=== PATIENT | male | born 1955 | race Caucasian/White ===

== ENCOUNTER 2020-04-12 10:31 | Outpatient (REF) | payer BC, SELFPAY ==
[2020-04-12 10:56] LABS: MANUAL DIFF FLAG NO
[2020-04-12 11:01] LABS: Basophils Percent Auto 0.5 % (0-2); Eosinophils Absolute Auto 0.1 X10*3/uL (0.0-0.4); Eosinophils Percent Auto 1.6 % (0-4); Hematocrit 46.3 % (42-52); Hemoglobin 15.6 g/dl (14.0-18.0); Imm Gran Abs Auto 0.01 X10*3/uL (0.00-0.03); Imm Gran Pct Auto 0.2 % (0.0-0.4); Lymphocytes Absolute Auto 1.8 X10*3/uL (1.2-4.9); Lymphocytes Percent Auto 28.1 % (20-40); Mean Corpuscular HGB Conc 33.7 g/dl (31.0-36.0); Mean Corpuscular Hemoglobin 30.7 pg (27.0-33.0); Mean Corpuscular Volume 91.1 fL (80-98); Mean Platelet Volume 10.1 fL (9.4-12.4); Monocytes Absolute Auto 0.6 X10*3/uL (0.1-1.2); Monocytes Percent Auto 9.3 % (2-11); Neutrophils Absolute Auto 3.8 X10*3/uL (2.0-8.3); Neutrophils Percent Auto 60.3 % (45-73); Platelet Count 203 X10*3/uL (160-400); Red Blood Count 5.08 X10*6/uL (4.60-5.80); Red Cell Distribution Width 12.4 % (11.0-16.0); White Blood Count 6.2 X10*3/uL (4.8-10.8)
[2020-04-12 11:06] LABS: Glucose Urine UA NEG (NEG); Leukocyte Esterase Urine NEG (NEG); Nitrite Urine NEG (NEG); Specific Gravity - Urine 1.025 (1.005-1.025); Urine Blood NEG (NEG); Urine Ketones NEG (NEG); Urine Protein NEG (NEG-TRACE)
[2020-04-12 11:07] LABS: Appearance Urine CLEAR; Color Urine YELLOW
[2020-04-12 11:22] LABS: Alanine Aminotransferase 21 U/L (0-40); Albumin Level 4.3 g/dL (3.5-5.0); Alkaline Phosphatase 61 U/L (39-117); Anion Gap 12 (12-20); Aspartate Amino Transferase 18 U/L (5-37); Blood Urea Nitrogen 17 mg/dL (9-16); Calcium 9.4 mg/dL (8.4-10.2); Carbon Dioxide 26 mmol/L (22-29); Chloride 107 mmol/L (96-108); Cholesterol 190 mg/dL; Estimated Glomerular Filt Rate > 60; Glucose Fasting 96 mg/dL (60-99); HDL Cholesterol 41 mg/dL; LDL Cholesterol Calculated 130 mg/dl; Potassium 4.3 mmol/L (3.3-5.1); Sodium 141 mmol/L (135-145); Total Protein 6.8 g/dL (6.5-8.0); Triglycerides 97 mg/dL
[2020-04-12 11:46] LABS: Vitamin D 25-OH Total 29.6 ng/mL (>30)
== END 2020-04-12 10:32 | disposition home or self-care (01) ==
LOC: HO.LAB 10:31
PROVIDERS: PCP Internal Medicine; Visit Provider Internal Medicine
DX: Z00.00 Encounter for general adult medical examination without abnormal findings (principal); Z12.5 Encounter for screening for malignant neoplasm of prostate; I47.1 Supraventricular tachycardia; E55.9 Vitamin D deficiency, unspecified; N20.0 Calculus of kidney; E78.00 Pure hypercholesterolemia, unspecified
CPT/HCPCS: 36415; 80053; 80061; 81003; 82306; 84153; 84443; 85025

== ENCOUNTER → 2020-10-14 14:30 | Outpatient (BNVA) | payer BC, SELFPAY | PROVIDERS: PCP Internal Medicine; Visit Provider Internal Medicine Cardiovascular Disease ==

== ENCOUNTER → 2020-10-14 | Outpatient (REF) | payer BC, SELFPAY | LOC: HO.CARD | PROVIDERS: Visit Provider Internal Medicine Cardiovascular Disease | DX: I47.1 Supraventricular tachycardia (principal); R00.2 Palpitations | CPT/HCPCS: 93005 ==

== ENCOUNTER 2020-10-18 09:21 | Outpatient (REF) | payer BC, SELFPAY ==
[2020-10-18 11:16] LABS: Free T4 (Free Thyroxine) 1.06 ng/dL (0.71-1.85); Thyroid Stimulating Hormone 0.32 uIU/mL (0.32-4.0)
== END 2020-10-18 09:22 | disposition home or self-care (01) ==
LOC: HO.LAB 09:21
PROVIDERS: PCP Internal Medicine; Visit Provider Internal Medicine
DX: R79.89 Other specified abnormal findings of blood chemistry (principal)
CPT/HCPCS: 36415; 84439; 84443; 84481

== ENCOUNTER → 2020-10-21 12:48 | Outpatient (REF) | payer BC, SELFPAY ==
--- NOTE | 2020-10-21 12:53 | HM_ITS ---
Patient monitored for 13 days and 23 hours. Baseline rhythm is normal sinus rhythm. Average heart rate is 60 beats per minute. No significant pauses noted, AV conduction is satisfactory There 57 supraventricular tachycardia episodes noted, longest of 4 minutes and 38 seconds. SVT heart rate of 127-130 beats per minute. There were rare PVCs noted, total burden 0.03%. There were also rare PACs noted, total burden 0.06% Patient did not report any events on this monitor. MTDD
--- NOTE | 2020-10-21 12:53 | CA_ITS ---
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 Normal LV systolic and diastolic function 2. Trivial aortic regurgitation 3. No pericardial effusion Findings Left Ventricle Normal left ventricular size, thickness, and systolic function. The visually estimated ejection fraction is between 60-65%. Spectral Doppler is indicative of a normal filling pattern. Right Ventricle Normal right ventricular cavity size and systolic function. Atria The left atrium is likely dilated. Interatrial shunt cannot be excluded. The right atrium is normal in size. Aortic Valve There is mild calcification of the aortic valve. There is no aortic valve stenosis. There is trace (trivial) aortic valve regurgitation. Mitral Valve Normal mitral valve structure and function. There is trace mitral valve regurgitation. There is no mitral valve stenosis. Pulmonic Valve The pulmonic valve was not well visualized. Tricuspid Valve Likely normal tricuspid valve structure and function. Tricuspid regurgitation envelope is inadequate for calculation of right ventricular systolic pressure. Great Vessels All visible segments of the aorta are normal in size. The pulmonary artery was not well visualized. Venous The inferior vena cava is normal in size and collapses greater than 50% with inspiration. Pericardium/Pleural There is no evidence of pericardial effusion. Prior Study Comparison No previous study in the last 5 years for comparison Measurements 2D Linear Measurements RVIDd: 3.55 RVIDd Index: 1.45 IVSd: 1.00 0.6-0.9/0.6-1.0 cm LVIDd: 4.99 3.9-5.3/4.2-5.9 cm LVIDd Index: 2.05 2.4-3.2/2.2-3.1 cm/m2 LVIDs: 3.65 2.0-3.6 cm LVPWd: 1.21 0.7-1.1 cm Ao Root: 3.90 2.1-3.5 cm LA Diam: 4.80 2.7-3.8/3.0-4.0 cm LAIDs Index: 1.97 1.5-2.3 cm/m2 LV Mass: 258.47 67-162/88-224 g LV Mass Index: 105.93 43-95/49-115 g/m2 LVOT Diam: 2.40 3.0+(-)1.3 cm 2D Systolic Function EF 4C: 68.70 >55% Mitral Valve MV Pk E: 0.54 MV PK A: 0.45 MV Decel Time: 263.00 E/A: 1.20 E'Lateral: 8.27 E'Medial: 7.18 E/E' Med: 7.50 E/E' Lat: 6.50 Aortic Valve AoV Pk Isreal: 1.51 AoV Mn Isreal: 0.95 AoV VTI: 0.30 AoV Pk Grad: 9.00 Aov Mn Grad: 4.00 JORGE Cont.VTI: 5.17 LVOT LVOT Pk Isreal: 1.38 LVOT Mn Isreal: 1.15 LVOT VTI: 0.34 LVOT Pk Grad: 8.00 LVOT Mn Grad: 5.00 LVOT Diam: 2.40 LVOT Area: 4.52 Diastolic Function MV Pk E: 0.54 MV Pk A: 0.45 E/A: 1.20 E'Medial: 7.18 E/E' Med: 7.50 E' Laterial: 8.27 E/E' Lat: 6.50 Right Ventricle TAPSE (mm): 25.00 TVS' Isreal: 12.50 Tricuspid Valve RA Press: 8.00 Great Vessels Aorta Ao Root-2D: 3.90 2.0-3.7 cm Ao Asc: 3.90 2.1-3.4 cm Ao Arch: 3.80 Updated in Other Vendor System with Status of Final Yasmani Mao MD electronically signed on 10/22/2020 2:26:50 PM with status of Final
== END ==
LOC: HO.CARD 12:48
PROVIDERS: Visit Provider Internal Medicine Cardiovascular Disease
DX: I47.1 Supraventricular tachycardia (principal)
CPT/HCPCS: 93246; 93306

== ENCOUNTER → 2020-11-10 13:43 | Outpatient (BNVA) | payer BC, SELFPAY | PROVIDERS: PCP Internal Medicine; Visit Provider Internal Medicine Cardiovascular Disease ==

== ENCOUNTER → 2020-12-19 09:11 | Outpatient (BNVA) | payer BC, SELFPAY | PROVIDERS: PCP Internal Medicine; Visit Provider Urology | DX: N40.1 Benign prostatic hyperplasia with lower urinary tract symptoms (principal); N20.0 Calculus of kidney; R39.15 Urgency of urination | CPT/HCPCS: 51798 ==

== ENCOUNTER → 2020-12-25 10:37 | Outpatient (BNVA) | payer BC, SELFPAY | PROVIDERS: PCP Internal Medicine; Visit Provider Surgery Vascular Surgery ==

== ENCOUNTER 2021-01-07 07:54 | Outpatient (REF) | payer BC, SELFPAY ==
--- NOTE | ~2021-01-07 | US_ITS ---
EXAMINATION: BILATERAL LOWER EXTREMITY VENOUS ULTRASOUND (Reflux Exam) CLINICAL INDICATION: Varicose veins. COMPARISON: None. TECHNIQUE: Color flow triplex imaging and compression Doppler was performed to evaluate both the deep and the superficial systems bilaterally. To evaluate the superficial system, the examination was performed in the upright position. Color-flow Doppler ultrasound and compression ultrasound were utilized. In addition, maneuvers were utilized to demonstrate reflux. FINDINGS: 1. DEEP VENOUS ULTRASOUND OF THE RIGHT LOWER EXTREMITY: Common Femoral Vein: Compressible, normal respiratory variation and augmented flow. Femoral vein: Compressible, normal color flow and augmentation. Popliteal Vein: Compressible, normal augmentation. Deep Reflux: There is no evidence of reflux in the deep system in either the common femoral vein or the popliteal vein. There is no evidence of a Cruz's cyst. 2. SUPERFICIAL ULTRASOUND WITH DOPPLER OF RIGHT LOWER EXTREMITY GREAT SAPHENOUS VEIN: Saphenofemoral junction: 0.6 cm; Reflux: No evidence of reflux. Max diameter: 0.6 Min diameter: 0.1 Reflux: Segmental reflux above the knee measuring greater than 0.5 seconds. DUPLICATED MEDIAL GREAT SAPHENOUS VEIN: Max Diameter: None Imaged Reflux: NA DUPLICATED LATERAL GREAT SAPHENOUS VEIN: Diameter: 0.2 cm at the junction Reflux: None SMALL SAPHENOUS VEIN: Saphenopopliteal junction: 0.3 cm; Reflux: No evidence of reflux. Min diameter: 0.2 Reflux: 1.2 seconds of reflux at the distal calf VEIN OF GIACOMINI: None Imaged. PERFORATORS: Location: Proximal calf and midcalf, measuring 2 and 4 mm respectively. Reflux: Greater than 2 seconds of reflux at the proximal calf. VARICOSITIES: Location: At knee measuring 4 mm Reflux: None 3. DEEP VENOUS ULTRASOUND OF THE LEFT LOWER EXTREMITY: Common Femoral Vein: Compressible, normal respiratory variation and augmented flow. Femoral vein: Compressible, normal color flow and augmentation. Popliteal Vein: Compressible, normal augmentation. Deep Reflux: There is 1.8 seconds of reflux within the common femoral vein. There is no evidence of a Cruz's cyst. 4. SUPERFICIAL ULTRASOUND WITH DOPPLER OF LEFT LOWER EXTREMITY GREAT SAPHENOUS VEIN: Saphenopopliteal junction: 1.4 cm; Reflux: Greater than 3.2 seconds of reflux Max diameter: 1.4 Min diameter: 0.2 Reflux: Reflux is seen from the saphenofemoral junction to the midthigh measuring between 2.6 and 3.3 seconds. DUPLICATED MEDIAL GREAT SAPHENOUS VEIN: Max Diameter: None Imaged Reflux: NA DUPLICATED LATERAL GREAT SAPHENOUS VEIN: Diameter: None Imaged Reflux: NA SMALL SAPHENOUS VEIN: Saphenofemoral junction: 0.2 cm; Reflux: No evidence of reflux. Min diameter: 0.1 Reflux: No evidence of reflux. VEIN OF GIACOMINI: None Imaged. PERFORATORS: Location: Midcalf measuring 2 and 4 mm. Reflux: Greater than 1.1 seconds at the midcalf. VARICOSITIES: Location: Midcalf, midthigh, distal lateral thigh and posterior thigh. These range in size from 5 mm to 13 mm. Reflux: All varicosities demonstrate reflux ranging between 1.8 seconds and 3.1 seconds. Additional: Along the medial midthigh is a 2.0 x 0.9 x 1.4 cm cystic area without internal vascularity. US/US venous duplex LE BI IMPRESSION: 1. Segmental right great saphenous venous insufficiency above the knee. 2. Left great saphenous venous insufficiency beginning at the junction. 3. Right small saphenous venous insufficiency at the distal calf. Bilateral refluxing perforators 4. Bilateral varicosities. Multiple large left lower extremity varicosities demonstrate reflux. 5. Deep venous insufficiency involving the left common femoral vein. 6. No evidence of DVT.
== END 2021-01-07 07:55 | disposition home or self-care (01) ==
LOC: HO.US 07:54
PROVIDERS: PCP Internal Medicine; Visit Provider Surgery Vascular Surgery
DX: I83.12 Varicose veins of left lower extremity with inflammation (principal)
CPT/HCPCS: 93970

== ENCOUNTER → 2021-01-20 09:46 | Outpatient (BNVA) | payer BC, SELFPAY | PROVIDERS: PCP Internal Medicine; Visit Provider Surgery Vascular Surgery ==

== ENCOUNTER 2021-01-28 09:41 | Outpatient (REF) | payer BC, SELFPAY ==
--- NOTE | ~2021-01-28 | US_ITS ---
EXAMINATION: US RETROPERITONEAL COMPLETE (RENAL) CLINICAL INFORMATION: Kidney stones. Urinary tract infection. BPH. COMPARISON: CT abdomen and pelvis 09/13/2018. KUB 06/17/2010. TECHNIQUE: Real-time imaging of the kidneys and bladder. FINDINGS: RIGHT KIDNEY: 10.5 x 5.9 x 6.3 cm (SAG x AP x TRV). The kidney is normal in size, contour, and echogenicity. Renal cortical thickness is normal. No focal parenchymal lesions or hydronephrosis. Several echogenic foci consistent with calculi. One in the upper pole measuring 3 x 3 mm. Another in the upper pole measuring 3 x 3 mm. LEFT KIDNEY: 12.1 x 5.8 x 6.2 cm (SAG x AP x TRV). The kidney is normal in size, contour, and echogenicity. Renal cortical thickness is normal. No focal parenchymal lesions or hydronephrosis. Several echogenic foci consistent with nonobstructing calculi. Midpole 5 x 6 mm calculus. Midpole 1.2 x 1 cm calculus. Lower pole 2 x 3 mm probable calculus. BLADDER: Well distended and normal. Bilateral ureteral jets are demonstrated. Prevoid bladder volume is 218 mL. Postvoid bladder volume is 28.2 mL. PROSTATE: 26 mL. US/US retroperitoneal comp IMPRESSION: Numerous nonobstructing renal calculi are noted here. Bilateral ureteral jets are seen in the bladder. Mild postvoid residual.
== END 2021-01-28 09:42 | disposition home or self-care (01) ==
LOC: HO.US 09:41
PROVIDERS: PCP Internal Medicine; Visit Provider Urology
DX: N40.1 Benign prostatic hyperplasia with lower urinary tract symptoms (principal); N20.0 Calculus of kidney
CPT/HCPCS: 76770

== ENCOUNTER → 2021-03-06 08:34 | Outpatient (BNVA) | payer BC, SELFPAY | PROVIDERS: PCP Internal Medicine; Visit Provider Surgery Vascular Surgery | DX: I83.12 Varicose veins of left lower extremity with inflammation (principal) | CPT/HCPCS: 36482 ==

== ENCOUNTER 2021-03-09 13:16 | Outpatient (REF) | payer BC, SELFPAY ==
--- NOTE | ~2021-03-09 | US_ITS ---
EXAMINATION: US VENOUS ULTRASOUND WITH DOPPLER LOWER EXTREMITY, LEFT CLINICAL INFORMATION: This is a 66-year-old male who is 3 days status post left great saphenous vein VenaSeal COMPARISON: None TECHNIQUE: Ultrasound of the deep veins is performed from the hip to the calf with compression sonography and color and pulse Doppler assessment. Spectral analysis with color-flow imaging is performed. FINDINGS: There is normal venous compression and respiratory variation and augmented flow. The visualized common femoral vein, superficial femoral vein, profunda femoral vein, popliteal vein, and the trifurcation region shows no evidence of deep venous thrombosis. There is no significant popliteal fossa cyst. The left great saphenous vein appears to be thrombosed. The occlusion of the left great saphenous vein begins 4.3 cm from the saphenofemoral junction. There is no extension of thrombus into the deep venous system. US/US venous duplex LE IMPRESSION: 1. No DVT demonstrated in the left lower extremity. 2. The left great saphenous vein is thrombosed beginning 4.3 cm below the saphenofemoral junction.
== END 2021-03-09 13:17 | disposition home or self-care (01) ==
LOC: HO.US 13:16
PROVIDERS: Visit Provider Surgery Vascular Surgery
DX: M79.605 Pain in left leg (principal)
CPT/HCPCS: 93971

== ENCOUNTER → 2021-03-19 09:10 | Outpatient (BNVA) | payer BC, SELFPAY | PROVIDERS: PCP Internal Medicine; Visit Provider Surgery Vascular Surgery ==

== ENCOUNTER → 2021-03-25 14:48 | Outpatient (BNVA) | payer BC, SELFPAY | PROVIDERS: PCP Internal Medicine; Visit Provider Urology | DX: N40.1 Benign prostatic hyperplasia with lower urinary tract symptoms (principal) | CPT/HCPCS: 52000 ==

== ENCOUNTER 2021-04-13 13:39 | Outpatient (REF) | payer BC, SELFPAY ==
--- NOTE | ~2021-04-13 | CT_ITS ---
EXAMINATION: CT ABDOMEN AND PELVIS WITHOUT CONTRAST CLINICAL INFORMATION: Neoplasm-related pain COMPARISON: Previous CT of the abdomen and pelvis August 2018 TECHNIQUE: Multidetector volumetric imaging was performed from the superior aspect of the liver through the pubic symphysis. Sagittal and coronal reformatted images were obtained on the technologist's workstation. This CT examination was performed using dose optimization techniques as appropriate, variously including the following: *Automated exposure control *Adjustment of mA and/or kV according to patient size (this includes techniques or standardized protocols for targeted exams where dose is matched to indication/reason for exam; i.e. extremities or head) *Use of iterative reconstruction technique DLP: 851 mGy-cm FINDINGS: LUNG BASES: The visualized lung bases are unremarkable. LIVER, GALLBLADDER, AND BILIARY TREE: The liver is normal in size, shape, and attenuation. No focal hepatic lesion or biliary ductal dilatation is present. The gallbladder is unremarkable with no evidence of radiopaque gallstones, gallbladder wall thickening, or obvious pericholecystic inflammatory changes. PANCREAS: Unremarkable. SPLEEN: Unremarkable. ADRENAL GLANDS: Unremarkable. KIDNEYS AND URETERS: The kidneys are normal in size, shape, and attenuation. No hydronephrosis, hydroureter. There are bilateral renal stones, left greater than right. Largest left renal stone or cluster of stones measures 5 mm. BLADDER: Unremarkable. GASTROINTESTINAL TRACT: There is diverticulosis of the colon. No evidence of diverticulitis is seen. The small and large bowel is otherwise unremarkable. The stomach is unremarkable. ABDOMINAL WALL: There are small umbilical and left inguinal hernias containing fat. LYMPH NODES: Normal. VASCULAR: Unremarkable. PELVIC VISCERA: Unremarkable. OSSEOUS STRUCTURES: There are degenerative changes of the spine. No fracture or suspicious bone lesion is seen. CT/CT abdomen pelvis wo con IMPRESSION: Bilateral renal stones, left greater than right. No hydronephrosis, ureteral dilatation or ureteral stone. Diverticulosis of the colon. No evidence of diverticulitis. Fleischner guidelines were followed.
== END 2021-04-13 13:40 | disposition home or self-care (01) ==
LOC: HO.CT 13:39
PROVIDERS: Visit Provider Urology
DX: G89.3 Neoplasm related pain (acute) (chronic) (principal); N20.0 Calculus of kidney; C79.51 Secondary malignant neoplasm of bone
CPT/HCPCS: 74176

== ENCOUNTER → 2021-04-15 09:19 | Outpatient (BNVA) | payer BC, SELFPAY | PROVIDERS: PCP Internal Medicine; Visit Provider Urology ==

== ENCOUNTER → 2021-05-19 15:01 | Outpatient (BNVA) | payer BC, SELFPAY | PROVIDERS: PCP Internal Medicine; Visit Provider Surgery Vascular Surgery | DX: Z13.89 Encounter for screening for other disorder (principal) ==

== ENCOUNTER → 2021-06-12 09:31 | Outpatient (BNVA) | payer BC, SELFPAY | PROVIDERS: PCP Internal Medicine; Visit Provider Surgery Vascular Surgery | DX: I83.12 Varicose veins of left lower extremity with inflammation (principal) | CPT/HCPCS: 37766 ==

== ENCOUNTER → 2021-06-25 15:12 | Outpatient (BNVA) | payer BC, SELFPAY | PROVIDERS: PCP Internal Medicine; Visit Provider Surgery Vascular Surgery | DX: I83.12 Varicose veins of left lower extremity with inflammation (principal) ==

== ENCOUNTER 2021-09-15 16:16 | Outpatient (REF) | payer BC, SELFPAY ==
--- NOTE | ~2021-09-15 | US_ITS ---
EXAMINATION: US RETROPERITONEAL LIMITED (RENAL ONLY) CLINICAL INFORMATION: Calculus of kidney. COMPARISON: CT abdomen and pelvis 04/13/2021, renal ultrasound 01/28/2021, x-ray abdomen 06/17/2010 TECHNIQUE: Real-time imaging of the kidneys. FINDINGS: RIGHT KIDNEY: 9.6 x 5.2 x 5.2 cm (SAG x AP x TRV). The kidney is normal in size, contour, and echogenicity. Renal cortical thickness is normal. No calculi or focal parenchymal lesions. No hydronephrosis. The small right renal stone seen by CT March 2021 are not appreciated. LEFT KIDNEY: 12.3 x 5.1 x 4.9 cm (SAG x AP x TRV). The kidney is normal in size, contour, and echogenicity. Renal cortical thickness is normal. There are 3 stones in the upper pole measuring 8 x 5 x 4 mm, 5 x 3 x 5 mm and 5 x 2 x 7 mm. No focal parenchymal lesions or hydronephrosis. US/US renal BI IMPRESSION: Left renal stones..
== END 2021-09-15 16:17 | disposition home or self-care (01) ==
LOC: HO.US 16:16
PROVIDERS: Visit Provider Urology
DX: N20.0 Calculus of kidney (principal)
CPT/HCPCS: 76775

== ENCOUNTER → 2021-10-22 08:29 | Outpatient (BNVA) | payer BC, SELFPAY | PROVIDERS: PCP Internal Medicine; Visit Provider Urology | DX: N40.1 Benign prostatic hyperplasia with lower urinary tract symptoms (principal); R39.15 Urgency of urination; N20.0 Calculus of kidney | CPT/HCPCS: 51798 ==

== ENCOUNTER → 2021-11-10 15:15 | Outpatient (BNVA) | payer BC, SELFPAY | PROVIDERS: PCP Internal Medicine; Referring Provider Internal Medicine; Visit Provider Internal Medicine Cardiovascular Disease | DX: I47.1 Supraventricular tachycardia (principal) | CPT/HCPCS: 93005 ==

== ENCOUNTER 2022-04-23 14:51 | Outpatient (REF) | payer BC, SELFPAY ==
--- NOTE | ~2022-04-23 | US_ITS ---
EXAMINATION: US RETROPERITONEAL LIMITED (RENAL ONLY) CLINICAL INFORMATION: Calculus of kidney. COMPARISON: Renal ultrasound 09/15/2021 and 01/28/2021. CT abdomen and pelvis 04/13/2021. TECHNIQUE: Real-time imaging of the kidneys. FINDINGS: RIGHT KIDNEY: 12.9 x 5.0 x 6.0 cm (SAG x AP x TRV). The kidney is normal in size, contour, and echogenicity. Renal cortical thickness is normal. No calculi or focal parenchymal lesions. A small right upper pole calculus seen on the prior CT scan is not visualized on the current study. No hydronephrosis. LEFT KIDNEY: 13.2 x 5.4 x 6.0 cm (SAG x AP x TRV). The kidney is normal in size, contour, and echogenicity. Renal cortical thickness is normal. Three upper pole calculi are again seen ranging in size from 4 mm to 7 mm without significant change when compared to the prior ultrasound exam. No focal parenchymal lesions or hydronephrosis. US/US renal BI IMPRESSION: Nonobstructing left upper pole renal calculi.
== END 2022-04-23 14:52 | disposition home or self-care (01) ==
LOC: HO.US 14:51
PROVIDERS: Visit Provider Urology
DX: N20.0 Calculus of kidney (principal)
CPT/HCPCS: 76775

== ENCOUNTER → 2022-04-30 15:10 | Outpatient (BNVA) | payer BC, SELFPAY | PROVIDERS: PCP Internal Medicine; Visit Provider Urology | DX: Z13.89 Encounter for screening for other disorder (principal) ==

== ENCOUNTER 2022-05-05 18:55 | Emergency (ER) | payer BC, SELFPAY ==
--- NOTE | ~2022-05-05 | US_ITS ---
EXAMINATION: US VENOUS ULTRASOUND WITH DOPPLER LOWER EXTREMITY, LEFT CLINICAL INFORMATION: Left lower extremity pain COMPARISON: Previous bilateral lower extremity DVT exam 03/09/2021 TECHNIQUE: Ultrasound of the deep veins is performed from the hip to the calf with compression sonography and color and pulse Doppler assessment. Spectral analysis with color-flow imaging is performed. FINDINGS: There is normal venous compression and respiratory variation and augmented flow. The visualized common femoral vein, superficial femoral vein, profunda femoral vein, popliteal vein, and the trifurcation region shows no evidence of deep venous thrombosis. There is no significant popliteal fossa cyst. If the patient's symptoms persist, followup ultrasound in 5 days 7 days might be of value to exclude proximal propagation from a non-visualized calf vein. US/US venous duplex LE IMPRESSION: No DVT demonstrated in the left lower extremity.
[2022-05-05 20:06] VITALS: BP 126/78; PULSE 68; RESP 18; TEMP 36.7; O2SAT 96; BMI 32.1
--- NOTE | 2022-05-05 20:10 | ED.GENADULT ---
HPI - General Adult General Chief complaint: Extremity Injury, Lower Stated complaint: Knee pain sent by Dr Related Data Home Medications Medication Instructions Recorded Confirmed ascorbate calcium (vitamin C) 500 500 mg PO DAILY 10/14/20 11/09/22 mg tablet atenolol 25 mg tablet 25 mg PO DAILY 10/14/20 11/09/22 cholecalciferol (vitamin D3) 25 25 mcg PO DAILY 10/14/20 11/09/22 mcg (1,000 unit) capsule vitamin B complex (B 1 tab PO DAILY 10/14/20 11/09/22 Complex-Vitamin B12 tablet) omeprazole 20 mg capsule,delayed 20 mg PO DAILY 10/28/22 11/09/22 release Previous Rx's Medication Instructions Recorded pyridoxine (vitamin B6) 50 mg 50 mg PO DAILY 90 days #90 tabs 04/30/22 tablet oxybutynin chloride 10 mg 10 mg PO DAILY 90 days #90 tabs 11/03/22 tablet,extended release 24 hr tamsulosin 0.4 mg capsule 0.4 mg PO BEDTIME 90 days #90 caps 11/03/22 Allergies Allergy/AdvReac Type Severity Reaction Status Date / Time No Known Allergies Allergy Verified 10/29/22 08:10 [No Known Allergies*] [facility] Past Medical History Medical History HTN (hypertension) GERD (gastroesophageal reflux disease) Nephrolithiasis Right inguinal hernia Varicose veins of right lower extremity Supraventricular tachycardia Surgical History Hx of right inguinal hernia repair (~07/09/22) History of esophagogastroduodenoscopy (EGD) H/O colonoscopy Hx of lithotripsy Status post ablation of incompetent vein using laser (03/06/21) H/O vein stripping (06/12/21) Hx of tonsillectomy History of back surgery Family History Family History Father CVD (cardiovascular disease) Mother No problems noted. Brother CVD (cardiovascular disease) Social History Social History Alcohol intake: current Alcohol intake frequency: holidays/special occasions only Patient Tobacco Use Status: Never used Tobacco Physical Exam ED Vital Signs: Vital Signs - 24 hr 05/05/22 20:06 Temperature 98.0 F Pulse Rate 68 Respiratory Rate 18 Blood Pressure 126/78 Pulse Oximetry 96 Oxygen Delivery Method Room Air BMI result Body Mass Index 32.1 Medical Decision Making Medical Decision Making MDM Narrative: 67-year-old male presents for evaluation of atraumatic left lower leg pain. He reports swelling from the knee down. Reports a history of ?varicose veins and sciatica. ? His vascular doctor told him to come to the ER for further evaluation an ultrasound was ordered to evaluate for DVT. Discharge Plan Discharge Clinical Impression: Acute knee pain Patient Disposition: Elopement Prescriptions: No Action oxybutynin chloride 10 mg tablet extended release 24hr 10 mg PO DAILY 90 Days Qty: 90 3RF tamsulosin 0.4 mg capsule 0.4 mg PO BEDTIME 90 Days Qty: 90 3RF omeprazole 20 mg Capsule,Delayed Release(Dr/Ec) 20 mg PO DAILY atenolol 25 mg tablet 25 mg PO DAILY ascorbate calcium (vitamin C) 500 mg tablet 500 mg PO DAILY cholecalciferol (vitamin D3) 25 mcg (1,000 unit) capsule 25 mcg PO DAILY vitamin B complex [B Complex-Vitamin B12] Tablet 1 tab PO DAILY pyridoxine (vitamin B6) 50 mg tablet 50 mg PO DAILY 90 Days Qty: 90 3RF Discharge Date/Time: 05/06/22 00:22
== END 2022-05-06 00:22 | disposition left against medical advice (07) ==
PROVIDERS: Emergency Provider Emergency Medicine; PCP Internal Medicine
DX: M79.662 Pain in left lower leg (principal); I83.12 Varicose veins of left lower extremity with inflammation
CPT/HCPCS: 93971; 99281; 99284

== ENCOUNTER 2022-05-12 12:50 | Outpatient (REF) | payer BC, SELFPAY ==
--- NOTE | ~2022-05-12 | XR_ITS ---
EXAMINATION: XR KNEE, LEFT CLINICAL INFORMATION: Knee swelling COMPARISON: None available. TECHNIQUE: Three views of the left knee. FINDINGS: Mild medial compartment joint space narrowing. No acute fracture or dislocation is seen. Small suprapatellar joint effusion. Tibial tubercle spurring. XR/XR knee LT 2V IMPRESSION: Mild medial compartment arthritis. Small effusion.
--- NOTE | ~2022-05-12 | US_ITS ---
EXAMINATION: US VENOUS ULTRASOUND WITH DOPPLER LOWER EXTREMITY, LEFT CLINICAL INFORMATION: Left leg swelling COMPARISON: Ultrasound 03/09/2021 TECHNIQUE: Ultrasound of the deep veins is performed from the hip to the calf with compression sonography and color and pulse Doppler assessment. Spectral analysis with color-flow imaging is performed. FINDINGS: There is normal venous compression and respiratory variation and augmented flow. The visualized common femoral vein, superficial femoral vein, profunda femoral vein, popliteal vein, and the trifurcation region shows no evidence of deep venous thrombosis. Visualized posterior tibial and peroneal veins appear patent. There is no significant popliteal fossa cyst. If the patient's symptoms persist, followup ultrasound in 5 days 7 days might be of value to exclude proximal propagation from a non-visualized calf vein. There are varicose veins seen in the left calf, which appear patent. No reflux is identified in today's study. US/US venous duplex LE LT IMPRESSION: No DVT demonstrated in the left lower extremity. If the patient's symptoms persist, followup ultrasound in 5 days 7 days might be of value to exclude proximal propagation from a non-visualized calf vein.
== END 2022-05-12 12:51 | disposition home or self-care (01) ==
LOC: HO.US 12:50
PROVIDERS: PCP Internal Medicine; Visit Provider Internal Medicine
DX: M79.89 Other specified soft tissue disorders (principal); R60.0 Localized edema
CPT/HCPCS: 73560; 93971

== ENCOUNTER 2022-05-15 10:30 | Outpatient (REF) | payer BC, SELFPAY ==
[2022-05-15 10:42] LABS: MANUAL DIFF FLAG NO
[2022-05-15 10:51] LABS: Basophils Percent Auto 0.5 % (0-2); Eosinophils Absolute Auto 0.2 X10*3/uL (0.0-0.4); Eosinophils Percent Auto 3.9 % (0-4); Hematocrit 44.6 % (42.0-52.0); Hemoglobin 14.8 g/dl (14.0-18.0); Imm Gran Abs Auto 0.01 X10*3/uL (0.00-0.03); Imm Gran Pct Auto 0.2 % (0.0-0.4); Lymphocytes Absolute Auto 1.5 X10*3/uL (1.2-4.9); Lymphocytes Percent Auto 25.5 % (20-40); Mean Corpuscular HGB Conc 33.2 g/dl (31.0-36.0); Mean Corpuscular Hemoglobin 30.2 pg (27.0-33.0); Mean Platelet Volume 10.1 fL (9.4-12.4); Monocytes Absolute Auto 0.6 X10*3/uL (0.1-1.2); Monocytes Percent Auto 9.3 % (2-11); Neutrophils Absolute Auto 3.6 x10*3/uL (2.0-8.3); Neutrophils Percent Auto 60.6 % (45-73); Platelet Count 210 X10*3/uL (160-400); Red Cell Distribution Width 12.5 % (11.0-16.0); White Blood Count 5.9 X10*3/uL (4.8-10.8)
[2022-05-15 11:31] LABS: Alanine Aminotransferase 23 U/L (0-40); Alkaline Phosphatase 67 U/L (39-117); Anion Gap 13 (12-20); Aspartate Amino Transferase 20 U/L (5-37); Bilirubin Total 1.1 mg/dL (0.0-1.0); Blood Urea Nitrogen 15 mg/dL (9-16); Calcium 9.3 mg/dL (8.4-10.2); Carbon Dioxide 28 mmol/L (22-29); Chloride 106 mmol/L (96-108); Cholesterol 171 mg/dL; Estimated Glomerular Filt Rate > 60; Glucose Fasting 92 mg/dL (60-99); HDL Cholesterol 40 mg/dL; LDL Cholesterol Calculated 117 mg/dl; Potassium 4.5 mmol/L (3.3-5.1); Sodium 142 mmol/L (135-145); Total Protein 6.4 g/dL (6.5-8.0); Triglycerides 72 mg/dL
[2022-05-15 11:49] LABS: Thyroid Stimulating Hormone 0.26 uIU/mL (0.32-4.0); Vitamin D 25-OH Total 35.1 ng/mL (>30)
== END 2022-05-15 10:31 | disposition home or self-care (01) ==
LOC: HO.LAB 10:30
PROVIDERS: PCP Internal Medicine; Visit Provider Internal Medicine
DX: M79.89 Other specified soft tissue disorders (principal); I47.1 Supraventricular tachycardia; E55.9 Vitamin D deficiency, unspecified; N20.0 Calculus of kidney; E78.00 Pure hypercholesterolemia, unspecified
CPT/HCPCS: 36415; 80053; 80061; 82306; 84443; 85025

== ENCOUNTER → 2022-05-25 13:53 | Outpatient (BNVA) | payer BC, SELFPAY | PROVIDERS: PCP Internal Medicine; Visit Provider Surgery Vascular Surgery | DX: Z13.89 Encounter for screening for other disorder (principal) ==

== ENCOUNTER → 2022-05-26 09:58 | Outpatient (BNVA) | payer BC, SELFPAY | PROVIDERS: PCP Internal Medicine; Visit Provider Surgery | DX: Z13.89 Encounter for screening for other disorder (principal) ==

== ENCOUNTER 2022-06-02 10:23 | Outpatient (REF) | payer BC, SELFPAY ==
--- NOTE | ~2022-06-02 | US_ITS ---
EXAMINATION: US LOWER EXTREMITY (REFLUX EXAM), LEFT CLINICAL INDICATION: Chronic venous insufficiency with left lower extremity varicose veins and inflammation. History of prior venous film of the great saphenous vein COMPARISON: 05/12/2022 and 03/09/2021 TECHNIQUE: Color flow triplex imaging and compression Doppler was performed to evaluate both the deep and the superficial systems of the left lower extremity. To evaluate the superficial system, the examination was performed in the upright position. Color-flow Doppler ultrasound and compression ultrasound were utilized. In addition, maneuvers were utilized to demonstrate reflux. FINDINGS: 1. DEEP VENOUS DOPPLER ULTRASOUND: Common Femoral Vein: Compressible, normal respiratory variation and augmented flow. Femoral Vein: Compressible, normal color flow and augmentation. Popliteal Vein: Compressible, normal augmentation. Deep Reflux: There is no evidence of reflux in the deep system in either the common femoral vein or the popliteal vein. There is no evidence of a Cruz's cyst. 2. SUPERFICIAL VENOUS DOPPLER ULTRASOUND: GREAT SAPHENOUS VEIN: Saphenofemoral Junction: 0.9 cm; Reflux: 0 ms Proximal Thigh: Occluded with Venaseal thrombus Mid Thigh: Partially recanalized Venaseal thrombus Above Knee: Occluded with Venaseal thrombus At Knee: 0.3 cm; Reflux: 3172 ms, recanalized Below Knee: 0.2 cm; Reflux: 0 ms Mid Calf: 0.1 cm; Reflux: 0 ms Ankle: 0.3 cm; Reflux: 552 ms DUPLICATED MEDIAL GREAT SAPHENOUS VEIN: Diameter: None Imaged Reflux: NA DUPLICATED LATERAL GREAT SAPHENOUS VEIN: Diameter: 0.6 cm Reflux: 3284 ms SMALL SAPHENOUS VEIN: Proximal: 0.1 cm; Reflux: 0 ms Distal: 0.2 cm; Reflux: 0 ms VEIN OF GIACOMINI: None Imaged. PERFORATORS: Location: Mid thigh and midcalf Size: 0.3 cm Reflux: None VARICOSITIES: Location: Proximal thigh extending off the lateral accessory saphenous vein, medial mid thigh, posterior thigh extending into the lateral calf Size: 0.4 to 0.5 cm Reflux: 3284 ms Other: There is a Cruz's cyst in the left popliteal fossa measuring 5.0 x 1.3 x 2.9 cm US/US venous duplex LE LT IMPRESSION: Occlusion of the great saphenous vein through the thigh consistent with prior venous oblation. The great saphenous vein in the calf is patent with segmental reflux. There is severe reflux in the lateral accessory great saphenous vein with multiple large branching varicosities Cruz's cyst
== END 2022-06-02 10:24 | disposition home or self-care (01) ==
LOC: HO.US 10:23
PROVIDERS: PCP Internal Medicine; Visit Provider Surgery Vascular Surgery
DX: I83.12 Varicose veins of left lower extremity with inflammation (principal)
CPT/HCPCS: 93971

== ENCOUNTER 2022-06-24 09:46 | Outpatient (REF) | payer BC, SELFPAY ==
--- NOTE | ~2022-06-24 | CT_ITS ---
STUDY PERFORMED: CTA/CTV ABDOMEN AND PELVIS WITHOUT AND WITH CONTRAST HISTORY: Left lower extremity pain and swelling. Concern for iliac vein compression/occlusion DESCRIPTION: Abdomen and pelvis CTA/CTV protocol with contrast was performed. 80 mL of Omnipaque 350 was administered. Arterial phase and venous phase images are obtained 3D POSTPROCESSING: Multiple 3-D angiographic images were processed from the initial data set by the lab technologist at the modality workstation under concurrent physician supervision. DOSE LOWERING TECHNIQUES: This CT examination was performed using dose optimization techniques as appropriate, variously including the following: - Automated exposure control - Adjustment of mA and/or kV according to patient size (this includes techniques or standardized protocols for targeted exams where dose is matched to indication/reason for exam; i.e. extremities or head) - Use of iterative reconstruction technique DLP: 766 mGycm. COMPARISON: Noncontrast CT scan from 04/05/2021 FINDINGS: VASCULAR: ABDOMINAL AORTA: Normal caliber and widely patent. No evidence of aneurysm or atherosclerotic plaque. RIGHT LOWER EXTREMITY: Common iliac, external iliac, internal iliac and visualized femoral arteries are widely patent. LEFT LOWER EXTREMITY: Common iliac, external iliac, internal iliac and visualized femoral arteries are widely patent. CELIOMESENTERIC ARTERIES: Patent. RENAL ARTERIES: Patent. VEINS: IVC, bilateral common iliac, external iliac and internal iliac veins are patent. No evidence of deep venous thrombosis or significant compression/stenosis. At the level the right inguinal ligament, there is a focal area of moderate compression at the junction of the right external iliac vein and common femoral vein due to adjacent inguinal hernia which contains mesenteric fat and multiple loops of bowel. The visualized left femoral veins are normal in caliber and widely patent. No significant varicose collateral veins seen in the abdomen and pelvis NONVASCULAR: Lung Bases: The visualized lung bases are unremarkable. Liver, Gallbladder and Biliary Tree: The liver is normal in size, shape, and attenuation. No focal hepatic lesion or biliary ductal dilatation is present. The gallbladder is unremarkable with no evidence of radiopaque gallstones, gallbladder wall thickening, or obvious pericholecystic inflammatory changes. Pancreas: Unremarkable. Spleen: Unremarkable. Adrenal Glands: Unremarkable. Kidneys and Ureters: The kidneys are normal in size, shape, and attenuation. No hydronephrosis, hydroureter seen. No perinephric stranding. Multiple nonobstructing calcified stones seen within the upper and lower pole collecting systems of the left kidney. Largest stone is seen in the upper pole measuring 0.9 cm. Bladder: Unremarkable. Gastrointestinal Tract: The small bowel are unremarkable. Diverticula seen within the sigmoid colon without evidence of acute diverticulitis The appendix is unremarkable. Abdominal Wall: Bilateral inguinal hernias are present. The right inguinal hernia is moderate in size containing mesenteric fat and loops of small bowel. The left inguinal hernia contains a small amount of mesenteric fat Lymph Nodes: Normal. Pelvic Viscera: Unremarkable. Osseous Structures: Degenerative disc disease seen at L5/S1 CT/CT angio abdomen pelvis IMPRESSION: 1. IVC, bilateral common iliac, external iliac and internal iliac veins are patent. No evidence of deep venous thrombosis or significant compression/stenosis. 2. At the level the right inguinal ligament, there is a focal area of moderate compression at the junction of the right external iliac vein and common femoral vein due to adjacent inguinal hernia which contains mesenteric fat and multiple loops of bowel. 3. Left nephrolithiasis.
[2022-06-24] MEDS: iohexoL 350 MG/ML 100 ML INFUS..BTL 80 ML IV (11:11)
[2022-06-24 13:49] LABS: Creatinine POC 0.7 mg/dL (0.5-1.4); GFR POC > 60
== END 2022-06-24 09:47 | disposition home or self-care (01) ==
LOC: HO.CT 09:46
PROVIDERS: PCP Internal Medicine; Visit Provider Surgery Vascular Surgery
DX: I83.12 Varicose veins of left lower extremity with inflammation (principal)
CPT/HCPCS: 74174; 82565; Q9967

== ENCOUNTER → 2022-06-28 09:26 | Outpatient (BNVA) | payer BC, SELFPAY | PROVIDERS: PCP Internal Medicine; Visit Provider Surgery Vascular Surgery ==

== ENCOUNTER 2022-07-09 07:25 | Day surgery (SDC) | payer BC, SELFPAY ==
[2022-07-06 15:09] VITALS: BMI 34.0
--- NOTE | 2022-07-08 10:07 | HO.ANESPROP2 ---
HPI - Anesthesia Eval Consult details Narrative: 67yo M for Right Hernia Repair Inguinal with mesh PMFSH Active Problems Active Problems: All Active Problems (Updated 07/06/22 @ 15:06 by Nataliia Lang RN) BPH loc w urin obs/LUTS (Acute) Nephrolithiasis (Acute) Urinary urgency (Acute) Varicose veins of left lower extremity with inflammation (Acute) Right inguinal hernia (Acute) Varicose veins of right lower extremity (Acute) Supraventricular tachycardia (Acute) Past Medical History Medical History Nephrolithiasis Right inguinal hernia Supraventricular tachycardia Varicose veins of right lower extremity Family History Family History Father CVD (cardiovascular disease) Mother No problems noted. Brother CVD (cardiovascular disease) Surgical History Surgical History H/O colonoscopy H/O vein stripping (06/12/21) History of back surgery History of esophagogastroduodenoscopy (EGD) Hx of lithotripsy Hx of right inguinal hernia repair (~07/09/22) Hx of tonsillectomy Status post ablation of incompetent vein using laser (03/06/21) Social History Social History Alcohol intake: current Alcohol intake frequency: holidays/special occasions only Patient Tobacco Use Status: Never used Tobacco Meds Allergies Allergy/AdvReac Type Severity Reaction Status Date / Time No Known Allergies Allergy Verified 07/22/22 09:13 [No Known Allergies*] Home Medications Medication Instructions Recorded Confirmed Last Taken Type ascorbate calcium (vitamin C) 500 500 mg PO DAILY 10/14/20 07/09/22 Unknown History mg tablet atenolol 25 mg tablet 25 mg PO DAILY 10/14/20 07/09/22 07/09/22 06:45 History cholecalciferol (vitamin D3) 25 25 mcg PO DAILY 10/14/20 07/09/22 Unknown History mcg (1,000 unit) capsule naproxen sodium 220 mg tablet 220 mg PO BID PRN Pain 10/14/20 07/09/22 07/08/22 History (Aleve) vitamin B complex (B 1 tab PO DAILY 10/14/20 07/09/22 Unknown History Complex-Vitamin B12 tablet) furosemide 40 mg tablet 40 mg PO DAILY 05/25/22 07/09/22 Unknown History Exam Exam Date and Time: July 08, 2022 1007 Height,Weight and Vital Signs: Height 6 ft 2 in Weight 120.202 kg Pertinent Lab Results Pertinent Lab Results: Laboratory Tests 05/15/22 05/15/22 10:40 10:40 WBC 5.9 Hgb 14.8 Hct 44.6 Plt Count 210 Sodium 142 Potassium 4.5 Chloride 106 Carbon Dioxide 28 BUN 15 Creatinine 0.83 Narrative Narrative: Holter 2021 Patient monitored for 13 days and 23 hours. Baseline rhythm is normal sinus rhythm.? Average heart rate is 60 beats per minute. No significant pauses noted, AV conduction is satisfactory There 57 supraventricular tachycardia episodes noted, longest of 4 minutes and 38 seconds.? SVT heart rate of 127-130 beats per minute. There were rare PVCs noted, total burden 0.03%.? There were also rare PACs noted, total burden 0.06% Patient did not report any events on this monitor. ECHO 2021 Conclusions: - 1. Normal LV systolic and diastolic function ? 2. Trivial aortic regurgitation? 3. No pericardial effusion ? ? Assessment and Plan Assessment Anesthesia Assessment: Chart Reviewed
[2022-07-09 07:49] VITALS: BP 124/73; PULSE 59; RESP 16; TEMP 37.1; O2SAT 95
[2022-07-09] MEDS: Lactated Ringers 1,000 ML 100 ML IVCONT (08:18)
--- NOTE | 2022-07-09 09:02 | HO.ANESPROP2 ---
[facility] Active Problems Active Problems: All Active Problems (Updated 07/06/22 @ 15:06 by Nataliia Lang RN) BPH loc w urin obs/LUTS (Acute) Nephrolithiasis (Acute) Urinary urgency (Acute) Varicose veins of left lower extremity with inflammation (Acute) Right inguinal hernia (Acute) Varicose veins of right lower extremity (Acute) Supraventricular tachycardia (Acute) Past Medical History Medical History Nephrolithiasis Right inguinal hernia Supraventricular tachycardia Varicose veins of right lower extremity Family History Family History Father CVD (cardiovascular disease) Mother No problems noted. Brother CVD (cardiovascular disease) Family history of problems with anesthesia: No Surgical History Surgical History H/O colonoscopy H/O vein stripping (06/12/21) History of back surgery History of esophagogastroduodenoscopy (EGD) Hx of lithotripsy Hx of tonsillectomy Status post ablation of incompetent vein using laser (03/06/21) History of Problems with Anesthesia: No Social History Social History Alcohol intake: current Alcohol intake frequency: holidays/special occasions only Patient Tobacco Use Status: Never used Tobacco Advance Directives: No (unknown) Advance Directives Information Provided: Yes Meds Allergies Allergy/AdvReac Type Severity Reaction Status Date / Time No Known Allergies Allergy Verified 07/09/22 07:46 [No Known Allergies*] Active Medications: Current Medications Lactated Ringer's (Lr) 1,000 mls @ 100 mls/hr IVCONT .Q10H MADELAINE Last Admin: 07/09/22 08:18 Dose: 100 mls/hr Home Medications Medication Instructions Recorded Confirmed Last Taken Type ascorbate calcium (vitamin C) 500 500 mg PO DAILY 10/14/20 07/09/22 Unknown History mg tablet atenolol 25 mg tablet 25 mg PO DAILY 10/14/20 07/09/22 07/09/22 06:45 History cholecalciferol (vitamin D3) 25 25 mcg PO DAILY 10/14/20 07/09/22 Unknown History mcg (1,000 unit) capsule naproxen sodium 220 mg tablet 220 mg PO BID PRN Pain 10/14/20 07/09/22 07/08/22 History (Aleve) vitamin B complex (B 1 tab PO DAILY 10/14/20 07/09/22 Unknown History Complex-Vitamin B12 tablet) furosemide 40 mg tablet 40 mg PO DAILY 05/25/22 07/09/22 Unknown History Exam Exam Date and Time: July 09, 2022 09 Height,Weight and Vital Signs: Height 6 ft 2 in Weight 120.202 kg Last Vital Signs Temp 98.7 F 07/09/22 07:49 Pulse 59 07/09/22 07:49 Resp 16 07/09/22 07:49 BP 124/73 07/09/22 07:49 Pulse Ox 95 07/09/22 07:49 O2 Del Method Room Air 07/09/22 07:49 Airway Mallampati Class: III TM Dist: >3cm Neck ROM: Full Lungs: cTA Assessment and Plan Final Anesthetic Review Family History of Problems with Anesthesia: No History of Problems with Anesthesia: No NPO: Yes ASA Class: III Final Preanesthetic Review: Meds/Allgs Chart Reviewed, Consent Obtained/Reviewed and Anes Risks/Benef Reviewed Patient Risk: Intermediate Procedure Risk: Low Anesthetic Plan Anesthetic Plan: GA Disposition: Standard PACU
--- NOTE | 2022-07-09 09:47 | MHC.SHP ---
Pre-Procedural Eval Section A Date of Service: 07/09/22 Section B Chief Complaint: Unilateral inguinal hernia, without obstruction or Details of Present Illness: reducible right inguinal hernia Relevant Social History: None Present Medications: see Short Stay Collaborative assessment Medical History: Significant History ( history of supraventricular tachycardia, nephrolithiasis, BPH) History of Previous Operations: No relevant previous surgery Allergies: Allergies Allergy/AdvReac Type Severity Reaction Status Date / Time No Known Allergies Allergy Verified 07/09/22 07:46 [No Known Allergies*] Review of Systems Sugical H&P ROS: Negative: Constitution, Cardiovascular, Respiratory, Neurological, Psychiatric, Hem-Onc, Allergic/Immunologic, Gastrointestinal, Genitourinary, Musculoskeletal, Integumentary, Endocrine and Eyes/Ears/Nose/Throat Exam Surgical H&P Exam: Normal: HEENT, Normal: Heart, Normal: Lungs, Normal: Extremities, Normal: Skin and Normal: Neurological and Significant Findings: Abdomen ( right inguinal hernia) Plan Diagnosis/Plan: Unchanged I have reviewed the history and physical and performed a pertinent physical examination on my patient. No changes have occurred unless specified. Time Spent With Patient Time: Total time managing care of this patient today ____ minutes.
--- NOTE | 2022-07-09 10:55 | P.OP_ITS ---
Operative Note Operative Note Date of Service: 07/09/22 Narrative: Preop diagnosis: Right inguinal hernia Postop diagnosis: Right inguinal hernia, with chronically incarcerated small bowel loops, indirect Procedure: Repair of a chronically incarcerated right inguinal hernia with mesh, reduction of chronically incarcerated small bowel loops, Surgeon: Joe Harris MD specimen preparation assistant: TYLER Galindo The patient is a 67 year female with a right inguinal hernia felt more with Valsalva maneuvers. He understood the technique of repair with mesh. He was aware of the risks, benefits, and alternatives. He was brought to the operating room. He was placed supine under general anesthesia via laryngeal mask airway. The right groin was prepped and draped in the usual sterile fashion. A surgical time-out was done. The patient received cefazolin 2 g IV preoperatively I infiltrated the planned line of incision with lidocaine 1%. I made a generous incision skin using blade 15 along an imaginary line from the anterior superior spine to the pubic ramus. This was carried down through the full-thickness of the skin subcutaneous fat with electrocautery. It is noted the patient have a very thick amount of subcutaneous fat in this area. We eventually were able to identify the external oblique aponeurosis. I gently dissected this using gauze until was able to visualize the external ring. I opened up the roof of the inguinal canal by make an incision on the external oblique aponeurosis using blade 15 and extending this inferomedially to connect with the external ring. Status were applied to the divided edges of the external oblique aponeurosis. I bluntly dissected the underside of the aponeurosis to create a pocket for the mesh . There was note of a large hernia intimately adherent to the cord contents. Blunt dissection around this hernia using my index finger was achieved with some difficulty in view of the large size of the hernia. I was therefore then able to pass a Colby drain around this. This Colby drain was used for for retraction. I attempted to release the large hernia off of the rest of the contents. However, because of the large hernia along with this being markedly adherent, this was technically difficult. I therefore opened up the sac. There was note of chronically incarcerated small bowel loops which were viable. By opening the sac,I was able to reduce this entire hernia contents through the internal ring. I proceeded to gently separate the rest of the sac from the rest of the cord contents which was now easily identifiable after reducing the contents of the hernia. I was able to clearly identify the vas deferens and the accompanying vessels. I had to leave part of the sac adherent to the vas deferens and the rest of the cord contents because this was very markedly adherent. I reinforced the internal ring with the large size Prolene plug. The plug was secured to this internal ring with Prolene 2-0 sutures to the shelving edge of the inguinal meant laterally and the internal oblique superiorly and medially using the inner leaves of the mesh. I reinforced the floor of the canal with a keyhole mesh. This was flattened. The tails of the mesh were passed around the cord at the level of the internal ring. I secured the mesh to the inguinal ligament laterally, the internal oblique superiorly medially as well as the pubic ramus inferomedially using 2 sutures as well I observed for hemostasis. Once hemostasis was confirmed, I proceeded to then reapposed the external oblique aponeurosis to re-create the external ring. The thick subcutaneous fat was reapposed with Polysorb 3-0 simple interrupted sutures. Skin closure was achieved with preserved 4-0 subcuticular running stitch. The area was infiltrated with Marcaine 0.5% for postop analgesia. Dressings were applied and the procedure was completed The patient tolerated procedure well. There were no immediate complications. Initial and final counts of sponges and instruments were correct. Estimated blood loss about 25 cc. The patient was extubated without difficulty and transferred to recovery room with stable vital signs.
[2022-07-09 11:11] VITALS: BP 109/68; PULSE 52; RESP 16; TEMP 36.4; O2SAT 95
[2022-07-09 11:16] VITALS: BP 118/69; PULSE 52; RESP 16; O2SAT 95
[2022-07-09 11:21] VITALS: BP 121/59; PULSE 55; RESP 16; O2SAT 95
[2022-07-09 11:26] VITALS: BP 120/59; PULSE 54; RESP 16; O2SAT 95
[2022-07-09] MEDS: Acetaminophen 1,000 MG/100 ML PIGGYBACK 400 MG IV (11:33)
[2022-07-09] MEDS: oxyCODONE HCl Immed Release 5 MG TABLET PO (11:33)
[2022-07-09 11:41] VITALS: BP 108/57; PULSE 52; RESP 16; TEMP 36.2; O2SAT 95
--- NOTE | 2022-07-09 14:02 | HO.POSTANES ---
Post Anesthesia Evaluation Post Anesthesia Evaluation Date of Service: 07/09/22 Vital Signs: Vital Signs Temp Pulse Resp BP Pulse Ox O2 Del Method O2 Flow Rate 07/09/22 11:41 97.1 F 52 16 108/57 L 95 Room Air 07/09/22 11:26 54 16 120/59 L 95 Room Air 07/09/22 11:21 55 16 121/59 L 95 Room Air 07/09/22 11:16 52 16 118/69 95 Room Air 07/09/22 11:11 97.6 F 52 16 109/68 95 Nasal Cannula 2 07/09/22 07:49 98.7 F 59 16 124/73 95 Room Air Anesthesia: General LMA Mental Status: Awake Pain Control: Satisfactory Nausea/Vomiting: None Hydration: Adequate Anesthesia-Related Issues: No Anes. Related Issues
== END 2022-07-09 12:41 | disposition home or self-care (01) ==
PROVIDERS: PCP Internal Medicine; Visit Provider Surgery
PROC: (CPT 49507; principal; 2022-07-09 09:40)
DX: K40.30 Unilateral inguinal hernia, with obstruction, without gangrene, not specified as recurrent (principal); I47.1 Supraventricular tachycardia; I83.91 Asymptomatic varicose veins of right lower extremity; Z87.442 Personal history of urinary calculi; Z79.1 Long term (current) use of non-steroidal anti-inflammatories (NSAID); Z79.899 Other long term (current) drug therapy; Z98.890 Other specified postprocedural states
CPT/HCPCS: 49507; C1781; J0131; J0690; J1100; J2250; J2405; J2795; J3010

== ENCOUNTER → 2022-07-22 09:06 | Outpatient (BNVA) | payer BC, SELFPAY | PROVIDERS: PCP Internal Medicine; Referring Provider Internal Medicine; Visit Provider Surgery ==

== ENCOUNTER 2022-09-23 09:53 | Outpatient (AMB) | payer BC, SELFPAY ==
--- NOTE | 2022-09-23 09:54 | MHC.OFFVIS ---
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 He twisted his knee and had acute onset of pain. Recently he was seen with his PCP who sent him to for an ultrasound,xray, and to see his vascular surgeon Dr Rubio for varicose veins. Dr Rubio then sent him for a deeper ultrasound. Patient states his knee is throbbing and has pain below the kneecap, and pain on the inside part of his knee. He states he hears and feels clicking in his knee. Ice was helping with the swelling but hasn't used it since April 2022. He has tried Tylenol and anti-inflammatory medicines which gave him minimal relief. He states that his left knee will give out several times per day. He has tried wearing a knee brace which did not help with his instability. He has had injections in the past which gave him no relief. Allergies No Known Allergies [No Known Allergies*] Allergy (Verified 09/23/22 10:03) Medication List - Last Reconciled 09/23/22 by Alli Frances MD ascorbate calcium (vitamin C) 500 mg PO DAILY atenolol 25 mg PO DAILY cholecalciferol (vitamin D3) 25 mcg PO DAILY furosemide 40 mg PO DAILY naproxen sodium (Aleve) 220 mg PO BID PRN oxybutynin chloride ER 10 mg PO DAILY 90 days pyridoxine (vitamin B6) 50 mg PO DAILY 90 days tamsulosin 0.4 mg PO BEDTIME 90 days vitamin B complex (B Complex-Vitamin B12 tablet) 1 tab PO DAILY [facility] Medical History Nephrolithiasis Right inguinal hernia Supraventricular tachycardia Varicose veins of right lower extremity Surgical History H/O colonoscopy H/O vein stripping (06/12/21) History of back surgery History of esophagogastroduodenoscopy (EGD) Hx of lithotripsy Hx of right inguinal hernia repair (~07/09/22) Hx of tonsillectomy Status post ablation of incompetent vein using laser (03/06/21) Family History Father CVD (cardiovascular disease) Mother No problems noted. Brother CVD (cardiovascular disease) Social History Alcohol intake: current Alcohol intake frequency: holidays/special occasions only Patient Tobacco Use Status: Never used Tobacco Physical Exam Const Other: Well-nourished well-developed very friendly male awake alert and oriented x3 in no acute distress Extrem Other: Bilateral lower extremity examination shows good capillary refill, no skin lesions noted, normal sensation light touch Left knee examination shows a minimal effusion, minimal crepitus with range of motion, tenderness along his medial joint line, positive Ana's test, no instability Assessment & Plan Assessment & Plan (1) Tear of medial meniscus of left knee: Code(s): S83.242A - Other tear of medial meniscus, current injury, left knee, initial encounter Plan: Mr. Clayton presents with progressively worsening left knee pain and mechanical symptoms most likely due to a tear of his medial meniscus. Thus, I will send the patient for an MRI of his left knee for further evaluation. I will see him back once the MRI is completed to discuss the findings and treatment options. Feel free to call me at any time should questions regarding his orthopedic management arise. Thank you very much for asking me to see this very friendly gentleman. I spent 22 minutes in reviewing the patient's records and imaging studies, seeing the patient and documenting in the medical record. Orders: Orders MR knee LT wo con Today S83.242A - Other tear of medial meniscus, current injury, left knee, initial encounter Coding Level of Care Code New Pt Level 2 (27095) Diagnoses Tear of medial meniscus of left knee S83.242A
== END 2022-09-23 10:37 | disposition home or self-care (01) ==
PROVIDERS: PCP Internal Medicine; Visit Provider Orthopaedic Surgery
DX: S83.242A Other tear of medial meniscus, current injury, left knee, initial encounter (principal)
CPT/HCPCS: 99202

== ENCOUNTER → 2022-09-23 09:53 | Outpatient (BNVA) | payer BC, SELFPAY | PROVIDERS: PCP Internal Medicine; Visit Provider Orthopaedic Surgery ==

== ENCOUNTER 2022-10-29 08:01 | Day surgery (SDC) | payer BC, SELFPAY ==
--- NOTE | 2022-10-27 14:56 | HO.ANESPROP2 ---
Documented by User: Ally Suarez NP 10/27/22 14:59 HPI - Anesthesia Eval Consult details Narrative: 67yo M for Upper Endoscopy and Colonoscopy s/p hernia repair 06/2022 with GA Follows [facility] [place] yearly for SVT. Last seen 10/2021 and stable [facility] Active Problems Active Problems: All Active Problems (Updated 09/23/22 @ 10:42 by Alli Frances MD) Tear of medial meniscus of left knee (Acute) BPH loc w urin obs/LUTS (Acute) Nephrolithiasis (Acute) Urinary urgency (Acute) Varicose veins of left lower extremity with inflammation (Acute) Right inguinal hernia (Acute) Varicose veins of right lower extremity (Acute) Supraventricular tachycardia (Acute) Past Medical History Medical History HTN (hypertension) GERD (gastroesophageal reflux disease) Nephrolithiasis Right inguinal hernia Varicose veins of right lower extremity Supraventricular tachycardia Family History Family History Father CVD (cardiovascular disease) Mother No problems noted. Brother CVD (cardiovascular disease) Family history of problems with anesthesia: No Surgical History Surgical History Hx of right inguinal hernia repair (~07/09/22) History of esophagogastroduodenoscopy (EGD) H/O colonoscopy Hx of lithotripsy Status post ablation of incompetent vein using laser (03/06/21) H/O vein stripping (06/12/21) Hx of tonsillectomy History of back surgery History of Problems with Anesthesia: No Social History Social History Alcohol intake: current Alcohol intake frequency: holidays/special occasions only Patient Tobacco Use Status: Never used Tobacco Use of substances other than those prescribed or required for medical reasons: No Are you DNR?: No Advance Directives: No Advance Directives Information Provided: Yes Meds Allergies Allergy/AdvReac Type Severity Reaction Status Date / Time No Known Allergies Allergy Verified 10/29/22 08:10 [No Known Allergies*] Home Medications Medication Instructions Recorded Confirmed Last Taken Type ascorbate calcium (vitamin C) 500 500 mg PO DAILY 10/14/20 10/29/22 Unknown History mg tablet atenolol 25 mg tablet 25 mg PO DAILY 10/14/20 10/29/22 07/09/22 06:45 History cholecalciferol (vitamin D3) 25 25 mcg PO DAILY 10/14/20 10/29/22 Unknown History mcg (1,000 unit) capsule vitamin B complex (B 1 tab PO DAILY 10/14/20 10/29/22 Unknown History Complex-Vitamin B12 tablet) omeprazole 20 mg capsule,delayed 20 mg PO DAILY 10/28/22 10/29/22 Unknown History release Exam Exam Date and Time: October 27, 2022 1456 Pertinent Lab Results Pertinent Lab Results: Laboratory Tests 05/15/22 05/15/22 10:40 10:40 WBC 5.9 Hgb 14.8 Hct 44.6 Plt Count 210 Sodium 142 Potassium 4.5 Chloride 106 Carbon Dioxide 28 BUN 15 Creatinine 0.83 Narrative Narrative: Holter 2021 Patient monitored for 13 days and 23 hours. Baseline rhythm is normal sinus rhythm.? Average heart rate is 60 beats per minute. No significant pauses noted, AV conduction is satisfactory There 57 supraventricular tachycardia episodes noted, longest of 4 minutes and 38 seconds.? SVT heart rate of 127-130 beats per minute. There were rare PVCs noted, total burden 0.03%.? There were also rare PACs noted, total burden 0.06% Patient did not report any events on this monitor. ECHO 2021 Conclusions: - 1. Normal LV systolic and diastolic function ? 2. Trivial aortic regurgitation? 3. No pericardial effusion ? ? Assessment and Plan Assessment Anesthesia Assessment: Chart Reviewed Final Anesthetic Review Family History of Problems with Anesthesia: No History of Problems with Anesthesia: No Documented by User: Jennifer Magaña MD 10/29/22 08:39 [facility] Past Medical History Medical History HTN (hypertension) GERD (gastroesophageal reflux disease) Nephrolithiasis Right inguinal hernia Varicose veins of right lower extremity Supraventricular tachycardia Family History Family History Father CVD (cardiovascular disease) Mother No problems noted. Brother CVD (cardiovascular disease) Surgical History Surgical History Hx of right inguinal hernia repair (~07/09/22) History of esophagogastroduodenoscopy (EGD) H/O colonoscopy Hx of lithotripsy Status post ablation of incompetent vein using laser (03/06/21) H/O vein stripping (06/12/21) Hx of tonsillectomy History of back surgery Social History Social History Alcohol intake: current Alcohol intake frequency: holidays/special occasions only Patient Tobacco Use Status: Never used Tobacco Use of substances other than those prescribed or required for medical reasons: No Are you DNR?: No Advance Directives: No Advance Directives Information Provided: Yes Meds Allergies Allergy/AdvReac Type Severity Reaction Status Date / Time No Known Allergies Allergy Verified 10/29/22 08:10 [No Known Allergies*] Home Medications Medication Instructions Recorded Confirmed Last Taken Type ascorbate calcium (vitamin C) 500 500 mg PO DAILY 10/14/20 10/29/22 Unknown History mg tablet atenolol 25 mg tablet 25 mg PO DAILY 10/14/20 10/29/22 07/09/22 06:45 History cholecalciferol (vitamin D3) 25 25 mcg PO DAILY 10/14/20 10/29/22 Unknown History mcg (1,000 unit) capsule vitamin B complex (B 1 tab PO DAILY 10/14/20 10/29/22 Unknown History Complex-Vitamin B12 tablet) omeprazole 20 mg capsule,delayed 20 mg PO DAILY 10/28/22 10/29/22 Unknown History release Exam Airway Mallampati Class: II TM Dist: >3cm Neck ROM: Full Denture: Upper Loose/Missing/Broken Teeth: Yes and Upper Heart: RRR Lungs: CTA Assessment and Plan Assessment Anesthesia Assessment: Anesthesia Plan Discussed Final Anesthetic Review NPO: Yes ASA Class: II Final Preanesthetic Review: Meds/Allgs Chart Reviewed, Consent Obtained/Reviewed and Anes Risks/Benef Reviewed Patient Risk: Low Procedure Risk: Intermediate Anesthetic Plan Anesthetic Plan: MAC: Disposition: Standard PACU
[2022-10-29 08:11] VITALS: BMI 34.0
[2022-10-29 08:18] VITALS: BP 141/76; PULSE 71; RESP 16; TEMP 36.3; O2SAT 94
[2022-10-29] MEDS: Lactated Ringers 1,000 ML 100 ML IVCONT (08:32)
[2022-10-29 10:00] VITALS: BP 112/72; PULSE 58; RESP 18; TEMP 36.2; O2SAT 99
--- NOTE | 2022-10-29 10:05 | P.BOP_ITS ---
Brief Operative Note Date of Service: 10/29/22 Pre-op diagnosis: Ornelas's screening Post-op diagnosis: other (Hiatal hernia, Gastric polyps, Colon polyp) Procedure: EGD with bx, Colonoscopy to the cecum and TI with bx/removal of polyp Surgeon: Erwin Street Anesthesia: MAC Was an Addressing Machine Operator used for this Procedure?: No Estimated blood loss (mL): 2.0 Pathology: other (A. EG Junction at 38cm B. Gastric polyps C. Transverse colon polyp) Condition: stable Disposition: PACU
[2022-10-29 10:15] VITALS: BP 120/80; PULSE 56; RESP 20; TEMP 36.2; O2SAT 97
--- NOTE | 2022-10-29 20:51 | OP_ITS ---
DATE OF SERVICE: 10/29/2022 SURGEON: Erwin Street MD INDICATIONS: The patient presents for evaluation of gastroesophageal reflux, history of Ornelas's esophagus, and colorectal cancer screening. Full consent was obtained from him for this, including risks of bleeding and perforation. PREOPERATIVE DIAGNOSIS: POSTOPERATIVE DIAGNOSIS: PROCEDURE PERFORMED: Esophagogastroduodenoscopy with biopsies, and colonoscopy to cecum and terminal ileum with biopsy and removal of polyp. ESTIMATED BLOOD LOSS: COMPLICATIONS: ANESTHESIA: Medication used; monitored anesthesia care. ASSISTANTS: SPECIMENS: PREOPERATIVE DIAGNOSES: Gastroesophageal reflux, Ornelas's esophagus, colorectal cancer screening. POSTOPERATIVE DIAGNOSES: Gastroesophageal reflux, Ornelas's esophagus, colorectal cancer screening, hiatal hernia, gastric polyps, colon polyp, diverticulosis, and internal hemorrhoids. DESCRIPTION OF PROCEDURE: The patient was placed in the left lateral decubitus position. The Olympus video gastroscope was passed in the posterior oropharynx and upper esophagus under direct vision. The scope was passed slowly into the distal esophagus. The gastroesophageal junction appeared at 38 cm. There were small, less than 1 cm areas of probable Ornelas's mucosa. There were no lesions nor esophagitis. The scope entered the stomach. There was a small to moderate-sized hiatal hernia. The scope was advanced to the pylorus and the duodenum was cannulated to the descending portion. The duodenum including the bulb appeared normal without mass or ulceration. The scope was withdrawn back to the stomach. The gastric antrum and body appeared normal with good peristalsis. The scope was retroflexed visualizing the proximal stomach carefully, which appeared normal other than multiple hyperplastic-appearing gastric polyps. There were no masses nor ulcerations. The scope was straightened. Biopsies were obtained from some of the gastric polyps. The scope was withdrawn back into the esophagus. Biopsies were obtained from the EG junction at 38 cm. Proximal to that, the esophageal mucosa appeared normal. The scope was withdrawn from the patient. He was turned around for the colonoscopy. The digital rectal exam revealed no abnormalities. The Olympus video pediatric colonoscope was entered into the rectum and advanced easily to the cecum. Once in the cecum, I did identify normal-appearing cecal pouch with appendiceal orifice and a normal-appearing ileocecal valve. The terminal ileum was cannulated and appeared normal. The scope was withdrawn back into the colon. The entire cecum and ileocecal valve appeared normal without any sign of mass or ulceration. The scope was slowly withdrawn assessing all mucosal surfaces carefully. Preparation for the most part was excellent, but did require some irrigation and suctioning. In the transverse colon there was a flat less than 5 mm polyp which was biopsied and completely removed with cold biopsy forceps. I did not visualize any other polyps, colitis, nor angiodysplasia. There was a mild amount of sigmoid diverticulosis. In the rectum, scope was retroflexed visualizing internal hemorrhoids, but no other pathology. The rectal mucosa appeared normal. The scope was straightened out and withdrawn from the patient. He tolerated the procedure well and was returned to the recovery area in stable condition. IMPRESSION: 1. Gastroesophageal reflux, hiatal hernia, history of Ornelas's esophagus. 2. Gastric polyps. 3. Colon polyp. 4. Diverticulosis. 5. Internal hemorrhoids. PLAN: The results of the biopsies will be checked. If the colon polyp is a tubular adenoma, I would recommend a followup colonoscopy in 5 years. If it is only hyperplastic, I would recommend a followup colonoscopy in 10 years. I would recommend a repeat upper endoscopy in 3 to 5 years in regard to the Ornelas's esophagus. If we do another colonoscopy in 5 years, we could just wait until then for his next upper endoscopy. He was advised not to use any aspirin or NSAIDs for 1 week. He was advised to continue his omeprazole for his chronic reflux. This has been discussed with his . MD GARRISON Mcdermott/IVORY / [id number] MTDD
== END 2022-10-29 10:45 | disposition home or self-care (01) ==
PROVIDERS: PCP Internal Medicine; Visit Provider Internal Medicine
PROC: (CPT 45380; principal; 2022-10-29 09:00)
DX: Z12.11 Encounter for screening for malignant neoplasm of colon (principal); D12.3 Benign neoplasm of transverse colon; K21.9 Gastro-esophageal reflux disease without esophagitis; K22.70 Barrett's esophagus without dysplasia; K31.7 Polyp of stomach and duodenum; K44.9 Diaphragmatic hernia without obstruction or gangrene; I10 Essential (primary) hypertension; I47.1 Supraventricular tachycardia; Z79.899 Other long term (current) drug therapy
CPT/HCPCS: 45380; 43239; 88305; 88342

== ENCOUNTER 2022-11-09 15:11 | Outpatient (REF) | payer BC, SELFPAY ==
[2022-11-09 18:38] LABS: Prostate Specific Antigen 2.19 ng/mL (<0.05-4.0)
[2022-11-09 18:41] LABS: Thyroid Stimulating Hormone 0.25 uIU/mL (0.32-4.0)
== END 2022-11-09 15:12 | disposition home or self-care (01) ==
LOC: HO.LAB 15:11
PROVIDERS: PCP Internal Medicine; Visit Provider Internal Medicine Cardiovascular Disease
DX: Z00.00 Encounter for general adult medical examination without abnormal findings (principal); Z12.5 Encounter for screening for malignant neoplasm of prostate; I47.1 Supraventricular tachycardia; R00.2 Palpitations
CPT/HCPCS: 36415; 84153; 84443; 93005

== ENCOUNTER 2022-11-09 15:11 | Outpatient (AMB) | payer BC, SELFPAY ==
--- NOTE | 2022-11-09 15:15 | MHC.OFFVIS ---
Intake Vital Signs 11/09/22 15:16 Height 6 ft 2 in Weight 262 lb 5.601 oz BMI 33.7 BP 124/76 Blood Pressure Location Lt brachial Position Sitting Pulse 54 Intake Visit Reasons: 1 yr /fup Intake Note: 1 year follow-up with ekg c/o some palpitations Fish Peddler Required: No Allergies No Known Allergies [No Known Allergies*] Allergy (Verified 10/29/22 08:10) Medication List - Last Reconciled 11/09/22 by Yasmani Mao MD ascorbate calcium (vitamin C) 500 mg PO DAILY atenolol 25 mg PO DAILY cholecalciferol (vitamin D3) 25 mcg PO DAILY omeprazole 20 mg PO DAILY oxybutynin chloride ER 10 mg PO DAILY 90 days pyridoxine (vitamin B6) 50 mg PO DAILY 90 days tamsulosin 0.4 mg PO BEDTIME 90 days vitamin B complex (B Complex-Vitamin B12 tablet) 1 tab PO DAILY HPI HPI Comments History of Present Illness Details Neil comes for follow-up. He has not had any recurrent irregular rapid heart rate consistent with SVT. However he notices about once a month he gets symptoms of skipped heartbeats or strong heartbeat that happens and is not similar to his SVT symptoms. This last for about 30 seconds and he would feel lightheaded. He has not actually lost consciousness. He has had increased stress in the last year related to his health issues. Denies any exertional chest pain or shortness of breath. No change in his functional capacity. [facility] Medical History HTN (hypertension) GERD (gastroesophageal reflux disease) Nephrolithiasis Right inguinal hernia Varicose veins of right lower extremity Supraventricular tachycardia Surgical History Hx of right inguinal hernia repair (~07/09/22) History of esophagogastroduodenoscopy (EGD) H/O colonoscopy Hx of lithotripsy Status post ablation of incompetent vein using laser (03/06/21) H/O vein stripping (06/12/21) Hx of tonsillectomy History of back surgery Family History Father CVD (cardiovascular disease) Mother No problems noted. Brother CVD (cardiovascular disease) Social History Alcohol intake: current Alcohol intake frequency: holidays/special occasions only Patient Tobacco Use Status: Never used Tobacco Review of Systems Const Denies chills, Denies fatigue, Denies fever(s), Denies frequent falls, Denies weakness, Denies weight gain and Denies weight loss ENT Denies dizziness Card Denies chest pain, Denies leg edema, Denies lightheadedness, Denies palpitations, Denies dyspnea, Denies dyspnea on exertion, Denies orthopnea and Denies other (loss of consciousness) Resp Denies cough, Denies dyspnea and Denies dyspnea on exertion GI Denies hematochezia and Denies change in stool character Musc Denies abnormal gait, Denies muscle weakness, Denies numbness, Denies radiating pain into limb and Denies tingling Neuro Denies Abnormal speech present, Denies abnormal gait, Denies dizziness, Denies frequent falls, Denies numbness, Denies tingling and Denies weakness Endo Denies fatigue and Denies palpitations Physical Exam Vital Signs: Last Vital Signs Pulse 54 11/09/22 15:16 BP 124/76 11/09/22 15:16 BMI result Body Mass Index 33.7 Const General: cooperative, comfortable, no acute distress, alert, awake and well groomed Nutritional Appearance: obese Orientation/consciousness: patient oriented x3 Limitations: no limitations Neck Neck: Yes trachea midline, Yes supple and Yes no JVD Resp Effort & Inspection: normal respiratory effort Auscultation: clear to auscultation bilaterally Cardio Jugular venous distension: no JVD Palpation: normal PMI Rate: regular rate Rhythm: regular rhythm Heart sounds: S1 normal heart sound present, S2 normal heart sound present, no click, no gallops, no murmurs and no rubs GI Inspection: Yes obesity Auscultation: normal bowel sounds Skin General skin exam: no rashes or lesions noted Neuro General: patient oriented x3 and no focal motor deficits Speech: No Abnormal speech present Extrem General: Yes no clubbing, cyanosis or edema and Yes other (Significant varicosities behind the knee on the right) Psych Appearance: grossly normal Affect: Anxious affect present Office Procedures EKG Details: EKG shows normal sinus rhythm with normal EKG [id number], Complete Assessment & Plan Assessment & Plan (1) Supraventricular tachycardia: Comment: follows w/[facility] yearly Code(s): I47.1 - Supraventricular tachycardia Plan: Patient has not had any recurrent episodes suggestive SVT. Continue atenolol therapy. Cannot up titrate therapy due to baseline bradycardia. We discussed about vagal maneuvers. Understands them well. Avoidance of stimulants was discussed. He understands agrees. Continue participate in stress mitigation strategies. (2) Palpitations: Code(s): R00.2 - Palpitations Plan: Patient with symptoms of palpitation appear to be most likely related isolated PVCs. Symptoms happen about once a month. They are not very frequent. Could be related to recent stressful situation with his health. Discussed about stress mitigation strategies. Avoidance of stimulants was discussed. Advised to call me with worsening symptoms that may require further workup including long-term monitoring. Will follow up in the clinic in 1 year's time, sooner p.r.n.. Thank you for allowing me to partake in his care Coding Level of Care Code Est Pt Level 4 (90229) Diagnoses Supraventricular tachycardia I47.1 Palpitations R00.2 CPT Codes EKG - CPT: 70523-[id number], Complete ([id number])
[2022-11-09 15:16] VITALS: BP 124/76; PULSE 54; BMI 33.7
== END 2022-11-09 15:39 | disposition home or self-care (01) ==
PROVIDERS: PCP Internal Medicine; Visit Provider Internal Medicine Cardiovascular Disease
DX: I47.1 Supraventricular tachycardia (principal); R00.2 Palpitations
CPT/HCPCS: 93010; 99214

== ENCOUNTER 2022-11-12 08:33 | Outpatient (REF) | payer BC, SELFPAY ==
--- NOTE | ~2022-11-12 | MR_ITS ---
EXAMINATION: MR KNEE WITHOUT CONTRAST, LEFT CLINICAL INFORMATION: Left knee pain and swelling. Evaluate for a meniscal tear. COMPARISON: Left knee radiographs dated 05/12/2022. TECHNIQUE: MRI of the knee without contrast was performed using routine sequences on a high-field scanner. FINDINGS: MENISCI: Medial Meniscus: Near-complete, irregular tearing of the posterior horn and root measuring up to 1.9 cm in ML dimension and located approximately 0.9 cm from the posterior root insertion. Medial extrusion of the meniscal body with complex tearing and a dominant oblique inner margin component. Mild adjacent soft tissue edema. Lateral Meniscus: Inner margin fraying/tearing of the meniscal body extending to the posterior horn. LIGAMENTS: Cruciate: Thickening and increased T2 signal of the anterior cruciate ligament and to a lesser degree within the posterior cruciate ligament consistent with early mucoid degeneration. Collateral: Intact EXTENSOR MECHANISM: Superior and inferior patellar enthesophytes. Intact quadriceps and patellar tendons. Normal patellofemoral alignment. ARTICULAR CARTILAGE/BONE: Patellofemoral Compartment: Patellar median ridge articular cartilage fissuring. Medial trochlea signal heterogeneity. Small marginal osteophytes. Medial Compartment: Diffuse weight-bearing articular cartilage thinning with signal heterogeneity and areas of full-thickness loss. Mild subchondral cystic change. Marginal osteophytes. At the medialmost aspect of the medial tibial plateau there is subchondral linear increased T2 and decreased T1 signal measuring up to 0.6 cm in ML dimension with adjacent marrow edema as well as soft tissue edema, likely indicating a nondisplaced subchondral fracture. Lateral Compartment: Mild articular cartilage signal heterogeneity with tiny marginal osteophytes. JOINT FLUID AND BURSAE: Small to moderate joint effusion and small Cruz's cyst. MR/MR knee LT wo con IMPRESSION: Near-complete, irregular tearing of the medial meniscus posterior horn and root measuring up to 1.9 cm in ML dimension. Medial extrusion of the meniscal body with complex tearing and a dominant oblique inner margin component. Inner margin fraying/tearing of the lateral meniscal body and posterior horn. Early mucoid degeneration of the anterior and posterior cruciate ligaments. Moderate medial as well as mild patellofemoral and lateral compartment osteoarthritis. Small to moderate joint effusion and small Cruz's cyst.
== END 2022-11-12 08:34 | disposition home or self-care (01) ==
LOC: HO.MRI 08:33
PROVIDERS: PCP Internal Medicine; Visit Provider Orthopaedic Surgery
DX: S83.242A Other tear of medial meniscus, current injury, left knee, initial encounter (principal)
CPT/HCPCS: 73721

== ENCOUNTER 2022-11-18 13:05 | Outpatient (AMB) | payer BC, SELFPAY ==
[2022-11-18 13:22] VITALS: BMI 33.6
--- NOTE | 2022-11-18 13:22 | MHC.OFFVIS ---
Intake Vital Signs 11/18/22 13:22 Height 6 ft 2 in Weight 262 lb BMI 33.6 Intake Visit Reasons: OV - Left Knee MRI Follow Up Intake Note: Neil is a 67 yr old male presents with complaints of progressively worsening left knee pain and giving way. 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 He twisted his knee and had acute onset of pain. Recently he was seen with his PCP who sent him to for an ultrasound,xray, and to see his vascular surgeon Dr Rubio for varicose veins. Dr Rubio then sent him for a deeper ultrasound. Patient states his knee is throbbing and has pain below the kneecap, and pain on the inside part of his knee. He states he hears and feels clicking in his knee. Ice was helping with the swelling but hasn't used it since April 2022. He has tried Tylenol and anti-inflammatory medicines which gave him minimal relief. He states that his left knee will give out several times per day. He has tried wearing a knee brace which did not help with his instability. He has had injections in the past which gave him no relief. Allergies No Known Allergies [No Known Allergies*] Allergy (Verified 11/18/22 13:23) Medication List - Last Reconciled 11/18/22 by Alli Frances MD ascorbate calcium (vitamin C) 500 mg PO DAILY atenolol 25 mg PO DAILY cholecalciferol (vitamin D3) 25 mcg PO DAILY omeprazole 20 mg PO DAILY oxybutynin chloride ER 10 mg PO DAILY 90 days pyridoxine (vitamin B6) 50 mg PO DAILY 90 days tamsulosin 0.4 mg PO BEDTIME 90 days vitamin B complex (B Complex-Vitamin B12 tablet) 1 tab PO DAILY [facility] Medical History HTN (hypertension) GERD (gastroesophageal reflux disease) Nephrolithiasis Right inguinal hernia Varicose veins of right lower extremity Supraventricular tachycardia Surgical History Hx of right inguinal hernia repair (~07/09/22) History of esophagogastroduodenoscopy (EGD) H/O colonoscopy Hx of lithotripsy Status post ablation of incompetent vein using laser (03/06/21) H/O vein stripping (06/12/21) Hx of tonsillectomy History of back surgery Family History Father CVD (cardiovascular disease) Mother No problems noted. Brother CVD (cardiovascular disease) Social History Alcohol intake: current Alcohol intake frequency: holidays/special occasions only Patient Tobacco Use Status: Never used Tobacco Physical Exam Vital Signs: BMI result Body Mass Index 33.6 Const Other: Well-nourished well-developed very friendly male awake alert and oriented x3 in no acute distress Lungs - clear to auscultation bilaterally with symmetric expansion Cardiovascular exam - regular rate and rhythm Abdominal exam - soft nontender nondistended Extrem Other: Bilateral lower extremity examination shows good capillary refill, no skin lesions noted, normal sensation light touch Left knee examination shows a minimal effusion, minimal crepitus with range of motion, tenderness along his medial joint line, positive Ana's test, no instability Results Reviewed Results Reviewed: X-rays of the patient's left knee show mild diffuse joint space narrowing, no acute bony abnormalities MRI of the patient's left knee shows mild diffuse degenerative changes as well as a tear of his medial meniscus and thickened plica Assessment & Plan Assessment & Plan (1) Tear of medial meniscus of left knee: Code(s): S83.242A - Other tear of medial meniscus, current injury, left knee, initial encounter Plan Mr. Clayton presents with left knee pain and mechanical symptoms due to early degenerative joint disease as well as a tear of his medial meniscus and plica syndrome. I had a lengthy discussion with the patient regarding the treatment options. At this point he has failed continued non operative treatments. The risks and benefits of left knee arthroscopic surgery were discussed at length with the patient. The patient wishes to proceed with surgery. Surgery will most likely involve left knee diagnostic arthroscopy with partial medial meniscectomy. The patient does understand that he may not get 100% relief of his symptoms depending on the severity of his degenerative changes. I will have my office contact the patient to pick a surgery date. The patient will be given a prescription for pain medicine at the time of his surgery. He will follow-up as instructed. Feel free to call me at any time should questions regarding his orthopedic management arise. I spent 22 minutes in reviewing the patient's records and imaging studies, seeing the patient and documenting in the medical record. Coding Level of Care Code Est Pt Level 2 (15770) Diagnoses Tear of medial meniscus of left knee S83.242A
== END 2022-11-18 13:39 | disposition home or self-care (01) ==
PROVIDERS: PCP Internal Medicine; Visit Provider Orthopaedic Surgery
DX: S83.242A Other tear of medial meniscus, current injury, left knee, initial encounter (principal)
CPT/HCPCS: 99212

== ENCOUNTER → 2022-11-18 13:05 | Outpatient (BNVA) | payer BC, SELFPAY | PROVIDERS: PCP Internal Medicine; Visit Provider Orthopaedic Surgery ==

== ENCOUNTER 2022-12-23 12:31 | Outpatient (AMB) | payer BC, SELFPAY ==
[2022-12-23 12:33] VITALS: BMI 33.6
--- NOTE | 2022-12-23 12:33 | A.OFFVIS_ITS ---
Intake Vital Signs 12/23/22 12:33 Height 6 ft 2 in Weight 262 lb BMI 33.6 Intake Visit Reasons: Pre-Lt Knee Intake Note: Neil is a 67 yr old male presents with complaints of progressively worsening left knee pain and giving way. 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 He twisted his knee and had acute onset of pain. Recently he was seen with his PCP who sent him to for an ultrasound,xray, and to see his vascular surgeon Dr Rubio for varicose veins. Dr Rubio then sent him for a deeper ultrasound. Patient states his knee is throbbing and has pain below the kneecap, and pain on the inside part of his knee. He states he hears and feels clicking in his knee. Ice was helping with the swelling but hasn't used it since April 2022. He has tried Tylenol and anti- inflammatory medicines which gave him minimal relief. He states that his left knee will give out several times per day. He has tried wearing a knee brace which did not help with his instability. He has had injections in the past which gave him no relief. Allergies No Known Allergies [No Known Allergies*] Allergy (Verified 12/23/22 12:36) Medication List - Last Reconciled 12/23/22 by Alli Frances MD ascorbate calcium (vitamin C) 500 mg PO DAILY atenolol 25 mg PO DAILY cholecalciferol (vitamin D3) 25 mcg PO DAILY omeprazole 20 mg PO DAILY oxybutynin chloride ER 10 mg PO DAILY 90 days oxycodone-acetaminophen 5-325 mg (Percocet) 1 tab PO Q6H PRN pyridoxine (vitamin B6) 50 mg PO DAILY 90 days tamsulosin 0.4 mg PO BEDTIME 90 days vitamin B complex (B Complex-Vitamin B12 tablet) 1 tab PO DAILY PFSH Medical History HTN (hypertension) GERD (gastroesophageal reflux disease) Nephrolithiasis Right inguinal hernia Varicose veins of right lower extremity Supraventricular tachycardia Surgical History Hx of right inguinal hernia repair (~07/09/22) History of esophagogastroduodenoscopy (EGD) H/O colonoscopy Hx of lithotripsy Status post ablation of incompetent vein using laser (03/06/21) H/O vein stripping (06/12/21) Hx of tonsillectomy History of back surgery Family History Father CVD (cardiovascular disease) Mother No problems noted. Brother CVD (cardiovascular disease) Social History Alcohol intake: current Alcohol intake frequency: holidays/special occasions only Patient Tobacco Use Status: Never used Tobacco Physical Exam Vital Signs: BMI result Body Mass Index 33.6 Const Other: Well-nourished well-developed very friendly male awake alert and oriented x3 in no acute distress Lungs - clear to auscultation bilaterally with symmetric expansion Cardiovascular exam - regular rate and rhythm Abdominal exam - soft nontender nondistended Extrem Other: Bilateral lower extremity examination shows good capillary refill, no skin lesions noted, normal sensation light touch Left knee examination shows a minimal effusion, mild crepitus with range of motion, tenderness along his medial joint line, positive Ana's test, no instability Results Reviewed Results Reviewed: MRI of the patient's left knee shows mild diffuse degenerative changes as well as a tear of his medial meniscus, no acute bony abnormalities Assessment & Plan Assessment & Plan (1) Tear of medial meniscus of left knee: Code(s): S83.242A - Other tear of medial meniscus, current injury, left knee, initial encounter Plan Mr. Clayton presents with progressively worsening left knee pain and mechanical symptoms due to a tear of his medial meniscus. I had a lengthy discussion with the patient regarding the treatment options. At this point he has failed continued non operative treatments. The risks and benefits of left knee arthroscopic surgery were discussed at length with the patient. The patient wishes to proceed. He does understand that he may not get 100% relief of his symptoms depending on the severity of his degenerative changes. Surgery will most likely involve left knee diagnostic arthroscopy with arthroscopic partial medial meniscectomy. The patient was given a prescription for Percocet at his preoperative appointment. I will see him back 2-3 weeks following his surgery for his 1st postoperative appointment. He will follow up as instructed. Feel free to call me at any time should questions regarding his orthopedic management arise. I spent 22 minutes in reviewing the patient's records and imaging studies, seeing the patient and documenting in the medical record. Medications: New oxycodone-acetaminophen 5-325 mg (Percocet) Partial Fill upon patient request. 1 tab PO Q6H PRN 20 tabs 0RF pain Coding Level of Care Code Est Pt Level 2 (41942) Diagnoses Tear of medial meniscus of left knee S83.242A
== END 2022-12-23 12:58 | disposition home or self-care (01) ==
PROVIDERS: PCP Internal Medicine; Visit Provider Orthopaedic Surgery
DX: S83.242A Other tear of medial meniscus, current injury, left knee, initial encounter (principal)
CPT/HCPCS: 99212

== ENCOUNTER → 2022-12-23 12:31 | Outpatient (BNVA) | payer BC, SELFPAY | PROVIDERS: PCP Internal Medicine; Visit Provider Orthopaedic Surgery ==

== ENCOUNTER 2022-12-31 10:31 | Day surgery (SDC) | payer BC, SELFPAY ==
--- NOTE | 2022-12-30 10:29 | P.CONAN_ITS ---
Documented by User: Ally Suarez NP 12/30/22 10:32 HPI - Anesthesia Eval Consult details Narrative: 67yo M for Left Knee Arthroscopy, partial medial meniscectomy Follows [facility] cardiology for hx SVT. Per 10/2022 office visit. No recurrence. Report of palps or skipped beats likely d/t PVC or stress. No change in treatment or further w/u. Stable for 1 year f/u. PMFSH Active Problems Active Problems: All Active Problems (Updated 11/14/22 @ 00:00 by Background Daemon) Tear of medial meniscus of left knee (Acute) BPH loc w urin obs/LUTS (Acute) Nephrolithiasis (Acute) Urinary urgency (Acute) Varicose veins of left lower extremity with inflammation (Acute) Right inguinal hernia (Acute) Varicose veins of right lower extremity (Acute) Supraventricular tachycardia (Acute) Past Medical History Medical History HTN (hypertension) GERD (gastroesophageal reflux disease) Nephrolithiasis Right inguinal hernia Varicose veins of right lower extremity Supraventricular tachycardia Family History Family History Father CVD (cardiovascular disease) Mother No problems noted. Brother CVD (cardiovascular disease) Family history of problems with anesthesia: No Surgical History Surgical History Hx of right inguinal hernia repair (~07/09/22) History of esophagogastroduodenoscopy (EGD) H/O colonoscopy Hx of lithotripsy Status post ablation of incompetent vein using laser (03/06/21) H/O vein stripping (06/12/21) Hx of tonsillectomy History of back surgery History of Problems with Anesthesia: No Social History Social History Alcohol intake: current Alcohol intake frequency: holidays/special occasions only Patient Tobacco Use Status: Never used Tobacco Are you DNR?: No Advance Directives: No Advance Directives Information Provided: Yes Nutrition Risks: No Nutritional Risk Meds Allergies Allergy/AdvReac Type Severity Reaction Status Date / Time No Known Allergies Allergy Verified 12/31/22 11:22 [No Known Allergies*] Active Medications: Current Medications Cefazolin Sodium/Dextrose (Ancef) 2 gm in 50 mls @ 100 mls/hr IV PREOP ONE Stop: 12/31/22 06:22 Home Medications Medication Instructions Recorded Confirmed Last Taken Type ascorbate calcium (vitamin C) 500 500 mg PO DAILY 10/14/20 12/31/22 Unknown History mg tablet atenolol 25 mg tablet 25 mg PO DAILY 10/14/20 12/31/22 12/31/22 History cholecalciferol (vitamin D3) 25 25 mcg PO DAILY 10/14/20 12/31/22 Unknown History mcg (1,000 unit) capsule vitamin B complex (B 1 tab PO DAILY 10/14/20 12/31/22 Unknown History Complex-Vitamin B12 tablet) omeprazole 20 mg capsule,delayed 20 mg PO DAILY 10/28/22 12/31/22 Unknown History release Exam Pertinent Lab Results Pertinent Lab Results: Laboratory Tests 05/15/22 10:40 WBC 5.9 Hgb 14.8 Hct 44.6 Plt Count 210 Sodium 142 Potassium 4.5 Chloride 106 Carbon Dioxide 28 BUN 15 Creatinine 0.83 Narrative Narrative: EKG 10/2022 normal sinus rhythm with normal EKG ECHO 2020 Conclusions: - 1. Normal LV systolic and diastolic function 2. Trivial aortic regurgitation 3. No pericardial effusion Assessment and Plan Assessment Anesthesia Assessment: Chart Reviewed Final Anesthetic Review Family History of Problems with Anesthesia: No History of Problems with Anesthesia: No Documented by User: Maria T Bell MD 12/31/22 11:56 [facility] Past Medical History Medical History HTN (hypertension) GERD (gastroesophageal reflux disease) Nephrolithiasis Right inguinal hernia Varicose veins of right lower extremity Supraventricular tachycardia Family History Family History Father CVD (cardiovascular disease) Mother No problems noted. Brother CVD (cardiovascular disease) Surgical History Surgical History Hx of right inguinal hernia repair (~07/09/22) History of esophagogastroduodenoscopy (EGD) H/O colonoscopy Hx of lithotripsy Status post ablation of incompetent vein using laser (03/06/21) H/O vein stripping (06/12/21) Hx of tonsillectomy History of back surgery Social History Social History Alcohol intake: current Alcohol intake frequency: holidays/special occasions only Patient Tobacco Use Status: Never used Tobacco Are you DNR?: No Advance Directives: No Advance Directives Information Provided: Yes Nutrition Risks: No Nutritional Risk Meds Allergies Allergy/AdvReac Type Severity Reaction Status Date / Time No Known Allergies Allergy Verified 12/31/22 11:22 [No Known Allergies*] Home Medications Medication Instructions Recorded Confirmed Last Taken Type ascorbate calcium (vitamin C) 500 500 mg PO DAILY 10/14/20 12/31/22 Unknown History mg tablet atenolol 25 mg tablet 25 mg PO DAILY 10/14/20 12/31/22 12/31/22 History cholecalciferol (vitamin D3) 25 25 mcg PO DAILY 10/14/20 12/31/22 Unknown Histo ry mcg (1,000 unit) capsule vitamin B complex (B 1 tab PO DAILY 10/14/20 12/31/22 Unknown History Complex-Vitamin B12 tablet) omeprazole 20 mg capsule,delayed 20 mg PO DAILY 10/28/22 12/31/22 Unknown History release Exam Airway Mallampati Class: II TM Dist: >3cm Neck ROM: Full Heart: rrr Lungs: cta Assessment and Plan Assessment Anesthesia Assessment: Anesthesia Plan Discussed Final Anesthetic Review NPO: Yes ASA Class: II Final Preanesthetic Review: No Changes in Pt Med Stat, Meds/Allgs Chart Reviewed, Consent Obtained/Reviewed and Anes Risks/Benef Reviewed Patient Risk: Intermediate Procedure Risk: Low Anesthetic Plan Anesthetic Plan: GA Disposition: Standard PACU
[2022-12-31] VITALS (8 sets, daily range): BP systolic 128–147; BP diastolic 70–85; PULSE 51–61; RESP 15–18; TEMP 36.1–36.7; O2SAT 95–97; BMI 33.6
[2022-12-31] MEDS: Lactated Ringers 1,000 ML 100 ML IVCONT (11:09)
--- NOTE | 2022-12-31 13:11 | P.BOP_ITS ---
Brief Operative Note Date of Service: 12/31/22 Pre-op diagnosis: Left knee medial meniscus tear, left knee degenerative joint disease Post-op diagnosis: same Procedure: Left knee diagnostic arthroscopy with left knee arthroscopic partial medial meniscectomy, left knee arthroscopic chondroplasty of the undersurface of the patella and the medial femoral condyle, left knee arthroscopic plica excision Implants: none Surgeon: Alli Frances MD Anesthesia: GLMA Was an [employer]i Software Engineer used for this Procedure?: No Estimated blood loss (mL): 10 Pathology: none sent Condition: stable Disposition: PACU
--- NOTE | 2022-12-31 13:12 | P.OP_ITS ---
Operative Note Operative Note Date of Service: 12/31/22 Narrative: After the patient was identified as Neil Clayton and their left knee was initialed by myself they were brought to the operating room where general anesthesia was induced by the anesthesiologist in routine fashion. The patient was given 2 g of IV Ancef preoperatively for infection prophylaxis. The patient's left lower extremity was prepped and draped in sterile fashion. A formal time-out was completed. Marcaine was injected into the planned incision sites as well as the patient's left knee joint. A #11 scalpel blade was used to make an anterolateral portal 1 cm proximal to the joint line and 1 cm lateral to the p atellar tendon. Blunt trocar technique was used to enter the suprapatellar pouch with the knee in extension. Diagnostic arthroscopy showed multiple bands of thickened plica which would be excised at the end of the procedure. There were no loose bodies or abnormalities found in either the medial or lateral gutters. The articular surface of the patella showed diffuse grades 2 and 3 degenerative changes. The trochlear groove articular surface showed diffuse grade 1 degenerative changes. The patient's knee was flexed to 45 degrees and a valgus force was placed upon it. The medial compartment was entered. An anteromedial portal was made 1 cm proximal to the joint line and 1 cm medial to the patellar tendon. Probing of the medial meniscus showed a radial tear of the posterior horn. A partial medial meniscectomy was performed using the arthroscopic shaver. Following the partial meniscectomy the remainder of the meniscus tissue was stable. There were diffuse grade 2 degenerative changes of the medial femoral condyle as well as grades 1 degenerative changes of the medial tibial plateau. The articular surface of the medial femoral condyle was then made smooth using the arthroscopic shaver. The articular surface of the medial tibial plateau was already smooth so no chondroplasty was indicated. The patient's knee was placed into a neutral position. There was no injury to the anterior cruciate ligament. The patient's knee was then placed in the figure of 4 position and the lateral compartment was entered. There was no evidence of lateral meniscus tearing. There were minimal degenerative changes of the lateral femoral condyle and lateral tibial plateau. The patient's knee was once again brought into extension and the suprapatellar pouch was entered. The arthroscopic shaver and the ArthroCare Wand were used to excise the thickened bands of plica. The undersurface of the patella was then made smooth using the arthroscopic shaver. The articular surface of the trochlear groove was already smooth so no chondroplasty was indicated. The knee joint was irrigated and then drained. All arthroscopic instruments were removed. The 2 portals were closed with 3-0 nylon interrupted suture. The knee joint was injected with Marcaine. Dry sterile dressing and Reynaldo bandages were placed over the patient's knee. The patient was awoken and extubated in the operating room. The patient was transferred to the recovery room in stable condition.
[2022-12-31] MEDS: cefTRIAXone sodium 1 GM in 0.9 % Sodium Chloride 50 ML IV (13:41)
== END 2022-12-31 14:34 | disposition home or self-care (01) ==
PROVIDERS: PCP Internal Medicine; Visit Provider Orthopaedic Surgery
PROC: (CPT 29870; principal; 2022-12-31 12:00)
DX: S83.242A Other tear of medial meniscus, current injury, left knee, initial encounter (principal); M67.52 Plica syndrome, left knee; M17.12 Unilateral primary osteoarthritis, left knee; M25.362 Other instability, left knee; I83.819 Varicose veins of unspecified lower extremity with pain; X50.1XXA Overexertion from prolonged static or awkward postures, initial encounter; Y93.89 Activity, other specified; Y92.018 Other place in single-family (private) house as the place of occurrence of the external cause; Y99.8 Other external cause status; I10 Essential (primary) hypertension; I47.10 Supraventricular tachycardia, unspecified; K21.9 Gastro-esophageal reflux disease without esophagitis; Z79.899 Other long term (current) drug therapy; Z98.890 Other specified postprocedural states
CPT/HCPCS: 29881; J0131; J0171; J0690; J0696; J1100; J1885; J2405; J2704; J2795; J3010

== ENCOUNTER → 2022-12-31 10:31 | Outpatient (BNV) | payer BC, SELFPAY | PROVIDERS: PCP Internal Medicine; Visit Provider Orthopaedic Surgery | DX: S83.232A Complex tear of medial meniscus, current injury, left knee, initial encounter (principal) | CPT/HCPCS: 29881 ==

== ENCOUNTER 2023-01-13 13:52 | Outpatient (AMB) | payer BC, SELFPAY ==
--- NOTE | 2023-01-13 14:18 | A.OFFVIS_ITS ---
Intake Intake Visit Reasons: PO-Lt Knee 12/31 Intake Note: Paul 67 year old male presents today for a post operative left knee 12/31/22 Patient reports he is doing well, intermittent mild pain with movement. Allergies No Known Allergies [No Known Allergies*] Allergy (Verified 01/13/23 14:20) HPI PO-Lt Knee 12/31 HPI Details 67-year-old male who returns to the [facility] today for post-op left knee , 12/31/[address] Frances. He states he has swelling and he does c/o mild intermittent pain in his knee with movement. He is doing well otherwise and has no other concerns today. [facility] Medical History HTN (hypertension) GERD (gastroesophageal reflux disease) Nephrolithiasis Right inguinal hernia Varicose veins of right lower extremity Supraventricular tachycardia Surgical History Hx of right inguinal hernia repair (~07/09/22) History of esophagogastroduodenoscopy (EGD) H/O colonoscopy Hx of lithotripsy Status post ablation of incompetent vein using laser (03/06/21) H/O vein stripping (06/12/21) Hx of tonsillectomy History of back surgery Family History Father CVD (cardiovascular disease) Mother No problems noted. Brother CVD (cardiovascular disease) Social History Alcohol intake: current Alcohol intake frequency: holidays/special occasions only Patient Tobacco Use Status: Never used Tobacco Review of Systems Const All systems reviewed & are unremarkable except as noted in HPI and below Physical Exam Extrem Other: Left knee: Incision clean, dry and intact. No erythema no joint effusion. ROM is 0-100 degrees. Calf supple, nontender. NVI. Results Reviewed Results Reviewed: Date of Service: 12/31/22 Pre-op diagnosis: Left knee medial meniscus tear, left knee degenerative joint disease Post-op diagnosis: same Procedure: Left knee diagnostic arthroscopy with left knee arthroscopic partial medial meniscectomy, left knee arthroscopic chondroplasty of the undersurface of the patella and the medial femoral condyle, left knee arthroscopic plica excision Implants: none : Alli Frances MD Assessment & Plan Assessment & Plan (1) Tear of medial meniscus of left knee: Code(s): S83.242A - Other tear of medial meniscus, current injury, left knee, initial encounter Plan Sutures removed today, steri strips applied. We discussed physical therapy which she would like to defer this time. She will work on activities at home increase as tolerated. I would like to see her back in 4 weeks, sooner if needed. [address] Frances. Patient Instructions: Scribed for Julia Blue PA-C, by [facility]eta medical dir, on 01/13/2023 at 2:00 PM EST. I, Julia Blue PA-C, have personally reviewed and agree with the information entered by the scribe. Coding Level of Care Code Global (84548) Diagnoses Tear of medial meniscus of left knee S83.242A
== END 2023-01-13 14:36 | disposition home or self-care (01) ==
PROVIDERS: PCP Internal Medicine; Visit Provider Physician Assistant
DX: S83.242A Other tear of medial meniscus, current injury, left knee, initial encounter (principal)
CPT/HCPCS: 99024

== ENCOUNTER → 2023-01-13 13:52 | Outpatient (BNVA) | payer BC, SELFPAY | PROVIDERS: PCP Internal Medicine; Visit Provider Physician Assistant ==

== ENCOUNTER 2023-02-10 13:36 | Outpatient (AMB) | payer BC, SELFPAY ==
--- NOTE | 2023-02-10 13:41 | MHC.OFFVIS ---
Intake Intake Visit Reasons: PO-Lt Knee 12/31/22 DR-book with Dr Frances Intake Note: Paul 67 year old male presents today for a post operative left knee 12/31/22 . The patient reports mild intermittent discomfort in his left knee, most noticeable at the end of his work days. He denies any fevers or chills. He no longer has pain at night. Allergies No Known Allergies [No Known Allergies*] Allergy (Verified 02/10/23 13:41) Medication List - Last Reconciled 02/10/23 by Alli Frances MD ascorbate calcium (vitamin C) 500 mg PO DAILY atenolol 25 mg PO DAILY cholecalciferol (vitamin D3) 25 mcg PO DAILY omeprazole 20 mg PO DAILY oxybutynin chloride ER 10 mg PO DAILY 90 days pyridoxine (vitamin B6) 50 mg PO DAILY 90 days tamsulosin 0.4 mg PO BEDTIME 90 days vitamin B complex (B Complex-Vitamin B12 tablet) 1 tab PO DAILY PFSH Medical History HTN (hypertension) GERD (gastroesophageal reflux disease) Nephrolithiasis Right inguinal hernia Varicose veins of right lower extremity Supraventricular tachycardia Surgical History Hx of right inguinal hernia repair (~07/09/22) History of esophagogastroduodenoscopy (EGD) H/O colonoscopy Hx of lithotripsy Status post ablation of incompetent vein using laser (03/06/21) H/O vein stripping (06/12/21) Hx of tonsillectomy History of back surgery Family History Father CVD (cardiovascular disease) Mother No problems noted. Brother CVD (cardiovascular disease) Social History Alcohol intake: current Alcohol intake frequency: holidays/special occasions only Patient Tobacco Use Status: Never used Tobacco Physical Exam Extrem Other: Left knee examination shows that the surgical incisions are well healed, no erythema, full active extension and flexion to 120 degrees, minimal crepitus with range of motion, no instability Assessment & Plan Assessment & Plan (1) Left knee pain: Code(s): M25.562 - Pain in left knee Plan Mr. Clayton continues do well after undergoing left knee arthroscopic surgery on 12/31/2022. He will continue with his home exercise program. Activity modifications were discussed at length with the patient. He will contact me prior to his follow-up appointment in 3 months should any questions or concerns arise. Feel free to call me at any time should questions regarding his orthopedic management arise. I spent 22 minutes in reviewing the patient's records and imaging studies, seeing the patient and documenting in the medical record. Coding Level of Care Code Global (34510) Diagnoses Left knee pain M25.562
== END 2023-02-10 14:11 | disposition home or self-care (01) ==
PROVIDERS: PCP Internal Medicine; Visit Provider Orthopaedic Surgery
DX: M25.562 Pain in left knee (principal)
CPT/HCPCS: 99024

== ENCOUNTER 2023-02-10 13:36 | Outpatient (REF) | payer BC, SELFPAY ==
[2023-02-10 16:04] LABS: Free T4 (Free Thyroxine) 1.09 ng/dL (0.71-1.85); Thyroid Stimulating Hormone 0.32 uIU/mL (0.32-4.0)
[2023-02-11 09:28] LABS: Triiodothyronine T3 Free 4.9 pg/mL (2.3-4.2)
== END 2023-02-10 13:37 | disposition home or self-care (01) ==
LOC: HO.LAB 13:36
PROVIDERS: PCP Internal Medicine; Visit Provider Internal Medicine
DX: E05.90 Thyrotoxicosis, unspecified without thyrotoxic crisis or storm (principal); M25.562 Pain in left knee; Z47.89 Encounter for other orthopedic aftercare; Z98.890 Other specified postprocedural states; Z79.899 Other long term (current) drug therapy
CPT/HCPCS: 36415; 84439; 84443; 84481

== ENCOUNTER 2023-04-18 13:57 | Outpatient (REF) | payer BC, SELFPAY ==
--- NOTE | ~2023-04-18 | US_ITS ---
EXAMINATION: US RETROPERITONEAL LIMITED (RENAL ONLY) CLINICAL INFORMATION: Calculus of kidney. COMPARISON: CTA abdomen and pelvis 06/24/2022. Renal ultrasound 04/23/2022 and 09/15/2021. X-ray abdomen KUB 06/17/2010. TECHNIQUE: Real-time imaging of the kidneys. FINDINGS: RIGHT KIDNEY: 12.2 x 5.9 x 6.0 cm (SAG x AP x TRV). The kidney is normal in size, contour, and echogenicity. Renal cortical thickness is normal. No focal parenchymal lesions or hydronephrosis. Lower pole calculus measures 3 x 2 x 2 mm. LEFT KIDNEY: 13.1 x 5.5 x 5.5 cm (SAG x AP x TRV). The kidney is normal in size, contour, and echogenicity. Renal cortical thickness is normal. No focal parenchymal lesions or hydronephrosis. Upper pole calculi measure 10 x 5 x 10 mm and 10 x 5 x 9 mm. Midpole calculus measures 6 x 3 x 5 mm. Lower pole calculus measures 11 x 4 x 7 mm. US/US renal BI IMPRESSION: Bilateral nonobstructing renal calculi. No hydronephrosis.
== END 2023-04-18 13:58 | disposition home or self-care (01) ==
LOC: HO.US 13:57
PROVIDERS: PCP Internal Medicine; Visit Provider Urology
DX: N20.0 Calculus of kidney (principal)
CPT/HCPCS: 76775

== ENCOUNTER 2023-05-03 13:56 | Outpatient (AMB) | payer BC, SELFPAY ==
--- NOTE | 2023-05-03 14:03 | MHC.OFFVIS ---
Intake Visit Reasons: 1Y US(set) Intake Note: Patient is Present for Telephone Follow Up Urology Med: Oxybutynin, Vitamin B6 , Tamsulosin Antibiotic Allergy: None Blood Thinner: None Allergies No Known Allergies [No Known Allergies*] Allergy (Verified 02/10/23 13:41) Medication List - Last Reconciled 06/02/23 by Joby Biggs MD ascorbate calcium (vitamin C) 500 mg PO DAILY atenolol 25 mg PO DAILY cholecalciferol (vitamin D3) 25 mcg PO DAILY omeprazole 20 mg PO DAILY oxybutynin chloride ER 10 mg PO DAILY 90 days pyridoxine (vitamin B6) 50 mg PO DAILY 90 days tamsulosin 0.4 mg PO BEDTIME 90 days vitamin B complex (B Complex-Vitamin B12 tablet) 1 tab PO DAILY HPI Comments Details: Lm is a pleasant male. He is a patient of Dr. Acevedo. He is seen for the following urologic conditions - lower urinary tract symptoms - nephrolithiasis Telemedicine Evaluation 15 min Consultation DoxSurplex Matias Video Small cluster on left side Follow-up with further imaging Stones have remained stable B 6 appears to be helpful - reduced to 50 mg States that combination tamsulosin - oxybutynin working well Would like to continue Six month follow-up imaging Lower urinary tract symptoms Progressive symptoms with weakness of stream and nocturia 1-2 times per night Current therapy tamsulosin with oxybutynin Able to sleep through the night with combination PSA - 09/03 1.5 Nephrolithiasis Has been able to pass his own stones Stone intervention - prior ESWL Imaging - 02/03 renal ultrasound to 3 mm stones on right side, left side 1.2 cm, 6 mm and 4 mm stones - 04/07 CT scan left kidney stone cluster is approximately 6 mm x 3 - 10/05 renal ultrasound stones stable at 6 mm - 05/06 renal ultrasound stable left cluster 3 x 5 mm - 05/07 renal ultrasound bilateral stones - cluster of left Therapeutic plan - 6 month follow-up imaging - encourage 64 oz fluid intake each day - lemon therapy PFSH Medical History HTN (hypertension) GERD (gastroesophageal reflux disease) Nephrolithiasis Right inguinal hernia Varicose veins of right lower extremity Supraventricular tachycardia Surgical History Hx of right inguinal hernia repair (~07/09/22) History of esophagogastroduodenoscopy (EGD) H/O colonoscopy Hx of lithotripsy Status post ablation of incompetent vein using laser (03/06/21) H/O vein stripping (06/12/21) Hx of tonsillectomy History of back surgery Family History Father CVD (cardiovascular disease) Mother No problems noted. Brother CVD (cardiovascular disease) Social History Alcohol intake: current Alcohol intake frequency: holidays/special occasions only Patient Tobacco Use Status: Never used Tobacco Review of Systems Const All systems reviewed & are unremarkable except as noted in HPI and below Reports no additional complaints Resp Reports no additional complaints GI Reports no additional complaints Reports as per HPI Musc Reports no additional complaints Physical Exam Telemedicine evaluation Appropriate responses Regular breathing rate and rhythm HEENT Head: Yes normal to inspection Ears: hearing grossly normal bilaterally Eyes General: appearance normal, both eyes and all related structures Neck Neck: Yes normal visual inspection Chest Chest palpation & inspection: normal inspection of the chest Resp Effort & Inspection: normal respiratory effort and able to speak in complete sentences Telehealth Telehealth Location of provider rendering services: practice address Location of patient: address on file Patient Identification confirmed using: Name, : Yes Telehealth method: video Patient verbally consented to treatment: Yes Patient verbally consented to billing insurance company: Yes Patient informed of any privacy concerns related to visit: Yes Minutes spent on Phone/Video with Pt.: 15 Assessment & Plan Assessment & Plan (1) BPH loc w urin obs/LUTS: Code(s): N40.1 - Benign prostatic hyperplasia with lower urinary tract symptoms Category: Medical (2) Urinary urgency: Code(s): R39.15 - Urgency of urination Category: Medical (3) Nephrolithiasis: Code(s): N20.0 - Calculus of kidney Category: Medical Plan Six-month follow-up renal imaging Patient Instructions: Imaging studies, laboratory and physical exam results were discussed and reviewed in detail. No major barriers to patient understanding were identified. An opportunity to ask questions regarding the treatment plan was provided. All questions were answered. The patient expressed understanding and agreement with the above treatment plan. The patient is aware they should contact our office by phone for worsening of their current condition or the appearance of new urologic symptoms. Compliance is encouraged with any medications and followup testing that is ordered. It is a privilege to participate in the urologic care of your patient. If you have any questions or concerns regarding treatment for the above conditions, or other urologic issues, please do not hesitate to contact me. The office telephone contact is [phone]. This note is constructed using voice recognition software. While every effort has been made to ensure accuracy drivers' cash clerk errors may have been included. Yours sincerely, Dr Joby Biggs MD, [facility] - Urology Providers of Expert, Compassionate Care for the Genitourinary System
== END 2023-05-03 14:30 | disposition home or self-care (01) ==
LOC: HO.HUSH 13:56
PROVIDERS: PCP Internal Medicine; Visit Provider Urology
DX: N40.1 Benign prostatic hyperplasia with lower urinary tract symptoms (principal); R39.15 Urgency of urination; N20.0 Calculus of kidney
CPT/HCPCS: 99213

== ENCOUNTER → 2023-05-03 13:56 | Outpatient (BNVA) | payer BC, SELFPAY | PROVIDERS: PCP Internal Medicine; Visit Provider Urology ==

== ENCOUNTER 2023-06-08 15:04 | Outpatient (AMB) | payer BC, SELFPAY ==
--- NOTE | 2023-06-08 15:06 | MHC.OFFVIS ---
Intake Visit Reasons: OV-Lt Knee 12/31/22 Intake Note: Neil is a 68 year old male who presents for his post operative appointment s/p his Left knee on 12/31/2022 Patient reports his knee is doing well. He states he is getting bilateral leg pain and burning from the knee down usually happening at night. The patient states that he has taken a Medrol Dosepak for ?sciatica? in the past which gave him fairly good relief. He denies any fevers or chills. Allergies No Known Allergies [No Known Allergies*] Allergy (Verified 06/08/23 15:12) Medication List - Last Reconciled 06/09/23 by Alli Frances MD ascorbate calcium (vitamin C) 500 mg PO DAILY atenolol 25 mg PO DAILY cholecalciferol (vitamin D3) 25 mcg PO DAILY methylprednisolone (Medrol (Fabian)) PO PER PKG DIR omeprazole 20 mg PO DAILY oxybutynin chloride ER 10 mg PO DAILY 90 days pyridoxine (vitamin B6) 50 mg PO DAILY 90 days tamsulosin 0.4 mg PO BEDTIME 90 days vitamin B complex (B Complex-Vitamin B12 tablet) 1 tab PO DAILY [facility] Medical History HTN (hypertension) GERD (gastroesophageal reflux disease) Nephrolithiasis Right inguinal hernia Varicose veins of right lower extremity Supraventricular tachycardia Surgical History Hx of right inguinal hernia repair (~07/09/22) History of esophagogastroduodenoscopy (EGD) H/O colonoscopy Hx of lithotripsy Status post ablation of incompetent vein using laser (03/06/21) H/O vein stripping (06/12/21) Hx of tonsillectomy History of back surgery Family History Father CVD (cardiovascular disease) Mother No problems noted. Brother CVD (cardiovascular disease) Social History Alcohol intake: current Alcohol intake frequency: holidays/special occasions only Patient Tobacco Use Status: Never used Tobacco Physical Exam Const Other: Well-nourished well-developed very friendly male awake alert and oriented x3 in no acute distress Extrem Other: Bilateral lower extremity examination shows good capillary refill, no skin lesions noted, normal sensation light touch Left knee examination shows that the surgical incisions are well healed, no erythema, minimal discomfort with range of motion, minimal crepitus with range of motion, no instability Assessment & Plan Assessment & Plan (1) Left knee pain: Code(s): M25.562 - Pain in left knee Category: Medical Plan Mr. Clayton continues to do well after undergoing left knee arthroscopic surgery on 12/31/2022. He does have residual discomfort due to degenerative joint disease. He also has intermittent pain in both of his lower legs possibly due to lumbar stenosis or a disc herniation. I did give the patient a prescription for a Medrol Dosepak to help with his symptoms. He will contact me prior to his follow-up appointment in 2 months should his symptoms worsen in any way. Feel free to call me at any time should questions regarding his orthopedic management arise. I spent 22 minutes in reviewing the patient's records and imaging studies, seeing the patient and documenting in the medical record. Medications: New methylprednisolone (Medrol (Fabian)) PO PER PKG DIR 21 ea 0RF Coding Level of Care Code Est Pt Level 2 (51787) Diagnoses Left knee pain M25.562
== END 2023-06-08 15:22 | disposition home or self-care (01) ==
PROVIDERS: PCP Internal Medicine; Referring Provider Internal Medicine; Visit Provider Orthopaedic Surgery
DX: M25.562 Pain in left knee (principal)
CPT/HCPCS: 99213

== ENCOUNTER → 2023-06-08 15:04 | Outpatient (BNVA) | payer BC, SELFPAY | PROVIDERS: PCP Internal Medicine; Visit Provider Orthopaedic Surgery ==

== ENCOUNTER 2023-10-22 09:48 | Outpatient (REF) | payer OTHER, SELFPAY ==
[2023-10-22 10:07] LABS: MANUAL DIFF FLAG NO
[2023-10-22 11:11] LABS: Basophils Percent Auto 0.2 % (0-2); Eosinophils Absolute Auto 0.1 X10*3/uL (0.0-0.4); Eosinophils Percent Auto 2.6 % (0-4); Hematocrit 44.3 % (42.0-52.0); Hemoglobin 15.1 g/dl (14.0-18.0); Imm Gran Abs Auto 0.02 X10*3/uL (0.00-0.03); Imm Gran Pct Auto 0.4 % (0.0-0.4); Lymphocytes Absolute Auto 1.4 X10*3/uL (1.2-4.9); Mean Corpuscular HGB Conc 34.1 g/dl (31.0-36.0); Mean Corpuscular Hemoglobin 30.9 pg (27.0-33.0); Mean Corpuscular Volume 90.8 fL (80.0-98.0); Mean Platelet Volume 10.8 fL (9.4-12.4); Monocytes Absolute Auto 0.5 X10*3/uL (0.1-1.2); Monocytes Percent Auto 11.1 % (2-11); Neutrophils Absolute Auto 2.7 x10*3/uL (2.0-8.3); Neutrophils Percent Auto 56.7 % (45-73); Platelet Count 192 X10*3/uL (160-400); Red Blood Count 4.88 X10*6/uL (4.60-5.80); Red Cell Distribution Width 12.9 % (11.0-16.0); White Blood Count 4.7 X10*3/uL (4.8-10.8)
[2023-10-22 12:02] LABS: Alanine Aminotransferase 25 U/L (0-40); Albumin Level 4.1 g/dL (3.5-5.0); Alkaline Phosphatase 62 U/L (39-117); Anion Gap 13 (12-20); Aspartate Amino Transferase 22 U/L (5-37); Bilirubin Total 0.7 mg/dL (0.0-1.0); Blood Urea Nitrogen 14 mg/dL (9-16); Calcium 9.7 mg/dL (8.4-10.2); Carbon Dioxide 24 mmol/L (22-29); Chloride 108 mmol/L (96-108); Cholesterol 176 mg/dL (<200); Estimated Glomerular Filt Rate > 60; Glucose Fasting 91 mg/dL (60-99); HDL Cholesterol 41 mg/dL (>40); LDL Cholesterol Calculated 118 mg/dL (<100); Potassium 4.1 mmol/L (3.3-5.1); Sodium 141 mmol/L (135-145); Total Protein 6.9 g/dL (6.5-8.0); Triglycerides 88 mg/dL (<150)
[2023-10-22 12:05] LABS: PSA,Total (Free>4and<10) 2.62 ng/mL (0.00-4.00)
[2023-10-22 12:08] LABS: Free T4 (Free Thyroxine) 0.93 ng/dL (0.71-1.85); Thyroid Stimulating Hormone 0.79 uIU/mL (0.32-4.0); Vitamin D 25-OH Total 35.5 ng/mL (>30)
== END 2023-10-22 09:49 | disposition home or self-care (01) ==
LOC: HO.LAB 09:48
PROVIDERS: PCP Internal Medicine; Visit Provider Internal Medicine
DX: Z00.00 Encounter for general adult medical examination without abnormal findings (principal); I47.10 Supraventricular tachycardia, unspecified; E05.90 Thyrotoxicosis, unspecified without thyrotoxic crisis or storm; N20.0 Calculus of kidney; E55.9 Vitamin D deficiency, unspecified; Z12.5 Encounter for screening for malignant neoplasm of prostate
CPT/HCPCS: 36415; 80053; 80061; 82306; 84153; 84439; 84443; 84481; 85025

== ENCOUNTER 2023-11-10 14:56 | Outpatient (AMB) | payer OTHER, SELFPAY ==
--- NOTE | 2023-11-10 14:57 | A.OFFVIS_ITS ---
Vital Signs 11/10/23 14:58 Height 6 ft 2 in Weight 264 lb 8.875 oz BMI 34.0 BP 120/70 Blood Pressure Location Lt brachial Position Sitting Pulse 67 Intake Visit Reasons: 1 yr f/up Intake Note: 1 year follow-up with ekg feeling ok Toby Maker Required: No Allergies No Known Allergies [No Known Allergies*] Allergy (Verified 06/08/23 15:12) Medication List - Last Reconciled 11/10/23 by Yasmani Mao MD ascorbate calcium (vitamin C) 500 mg PO DAILY atenolol 25 mg PO DAILY cholecalciferol (vitamin D3) 25 mcg PO DAILY methimazole 5 mg PO DAILY omeprazole 20 mg PO DAILY oxybutynin chloride ER 10 mg PO DAILY 90 days pyridoxine (vitamin B6) 50 mg PO DAILY 90 days tamsulosin 0.4 mg PO BEDTIME 90 days vitamin B complex (B Complex-Vitamin B12 tablet) 1 tab PO DAILY HPI Comments Details: Neil comes for follow-up. He is still grieving from the loss of his . Said around that time he had a lot of stress and he was having lot of palpitations mostly at nighttime he was feel strong deep heartbeats. He is not able to further elucidate whether he was having fast heart rate versus irregular heartbeat. He was concerned about possibility of developing atrial fibrillation. He is taking his medications right now. No lightheadedness, syncope. Otherwise with exertion he has no symptoms of chest pain or shortness of breath. No orthopnea, PND, leg edema. [facility] Medical History HTN (hypertension) GERD (gastroesophageal reflux disease) Nephrolithiasis Right inguinal hernia Varicose veins of right lower extremity Supraventricular tachycardia Surgical History Hx of right inguinal hernia repair (~07/09/22) History of esophagogastroduodenoscopy (EGD) H/O colonoscopy Hx of lithotripsy Status post ablation of incompetent vein using laser (03/06/21) H/O vein stripping (06/12/21) Hx of tonsillectomy History of back surgery Family History Father CVD (cardiovascular disease) Mother No problems noted. Brother CVD (cardiovascular disease) Social History Alcohol intake: current Alcohol intake frequency: holidays/special occasions only Patient Tobacco Use Status: Never used Tobacco Review of Systems Const Denies chills, Denies fatigue, Denies fever(s), Denies frequent falls, Denies weakness, Denies weight gain and Denies weight loss ENT Denies dizziness Card Denies chest pain, Denies leg edema, Denies lightheadedness, Denies palpitations, Denies dyspnea, Denies dyspnea on exertion, Denies orthopnea and Denies other (loss of consciousness) Resp Denies cough, Denies dyspnea and Denies dyspnea on exertion GI Denies hematochezia and Denies change in stool character Musc Denies abnormal gait, Denies muscle weakness, Denies numbness, Denies radiating pain into limb and Denies tingling Neuro Denies Abnormal speech present, Denies abnormal gait, Denies dizziness, Denies frequent falls, Denies numbness, Denies tingling and Denies weakness Endo Denies fatigue and Denies palpitations Physical Exam Vital Signs: Last Vital Signs Pulse 67 11/10/23 14:58 BP 120/70 11/10/23 14:58 BMI result Body Mass Index 34.0 Const General: cooperative, comfortable, no acute distress, alert, awake and well groomed Nutritional Appearance: obese Orientation/consciousness: patient oriented x3 Limitations: no limitations Neck Neck: Yes trachea midline, Yes supple and Yes no JVD Resp Effort & Inspection: normal respiratory effort Auscultation: clear to auscultation bilaterally Cardio Jugular venous distension: no JVD Palpation: normal PMI Rate: regular rate Rhythm: regular rhythm Heart sounds: S1 normal heart sound present, S2 normal heart sound present, no click, no gallops, no murmurs and no rubs GI Inspection: Yes obesity Auscultation: normal bowel sounds Skin General skin exam: no rashes or lesions noted Neuro General: patient oriented x3 and no focal motor deficits Speech: No Abnormal speech present Extrem General: Yes no clubbing, cyanosis or edema and Yes other (Significant varicosities behind the knee on the right) Psych Appearance: grossly normal Affect: Anxious affect present Office Procedures EKG Details: EKG shows normal sinus rhythm with normal EKG 51787-[id number], Complete Assessment & Plan Assessment & Plan (1) Supraventricular tachycardia: Comment: follows w/[facility]CS yearly Code(s): I47.1 - Supraventricular tachycardia Category: Medical Plan: Patient with prior history of supraventricular tachycardia on atenolol therapy with no major clinical recurrence for ED presentation. Although he is having recurrent symptoms palpitation under stressful situation although symptoms have got better over the last month or 2. This probably needs to be further investigated. I discussed with him about possibly investing in a smart phone based EKG sensor so that we can elucidate his symptoms better. If he has recurrent SVT may need to consider ablation given that he is already on atenolol and has had sinus bradycardia in the past. PVCs would probably be treated without any other interventions. If he has atrial fibrillation this would defi nitely change his management plan. This was discussed with him. He understands agrees. Avoidance of stimulants was discussed. Stress mitigation strategies were discussed. Will follow up in the clinic in 1 year's time, sooner p.r.n.. Thank you for allowing me to partake in his care Coding Level of Care Code Est Pt Level 4 (48998) Diagnoses Supraventricular tachycardia I47.1 CPT Codes EKG - CPT: 44199-[id number], Complete ([id number])
[2023-11-10 14:58] VITALS: BP 120/70; PULSE 67; BMI 34.0
== END 2023-11-10 15:21 | disposition home or self-care (01) ==
PROVIDERS: PCP Internal Medicine; Visit Provider Internal Medicine Cardiovascular Disease
DX: I47.10 Supraventricular tachycardia, unspecified (principal)
CPT/HCPCS: 93010; 99214

== ENCOUNTER → 2023-11-10 14:56 | Outpatient (BNVA) | payer OTHER, SELFPAY | PROVIDERS: PCP Internal Medicine; Visit Provider Internal Medicine Cardiovascular Disease | DX: I47.10 Supraventricular tachycardia, unspecified (principal) | CPT/HCPCS: 93005 ==

== ENCOUNTER 2023-11-17 15:58 | Outpatient (REF) | payer OTHER, SELFPAY ==
--- NOTE | ~2023-11-17 | US_ITS ---
EXAMINATION: US RETROPERITONEAL LIMITED (RENAL ONLY) CLINICAL INFORMATION: Calculus of kidney. COMPARISON: Renal ultrasound 04/18/2023 and 04/23/2022. CTA abdomen and pelvis 06/24/2022. TECHNIQUE: Real-time imaging of the kidneys. FINDINGS: RIGHT KIDNEY: 11.5 x 5.6 x 6.0 cm (SAG x AP x TRV). The kidney is normal in size, contour, and echogenicity. Renal cortical thickness is normal. No focal parenchymal lesions. There is a lower pole 6 mm echogenic focus with twinkle artifact, consistent with a nonobstructing stone, with no hydronephrosis seen. LEFT KIDNEY: 12.1 x 5.3 x 4.2 cm (SAG x AP x TRV). The kidney is normal in size, contour, and echogenicity. Renal cortical thickness is normal. No focal parenchymal lesions. Multiple echogenic foci are seen, the largest measuring 1.6 cm in the upper pole, with twinkle artifact and consistent with nonobstructing calculi. There is no hydronephrosis seen. US/US renal BI IMPRESSION: Bilateral nonobstructing renal calculi. Electronically signed by: Paul Rivera MD 01/19/2024 12:04 AM MIK
== END 2023-11-17 15:59 | disposition home or self-care (01) ==
LOC: HO.US 15:58
PROVIDERS: PCP Internal Medicine; Visit Provider Urology
DX: N20.0 Calculus of kidney (principal)
CPT/HCPCS: 76775

== ENCOUNTER 2023-11-29 14:52 | Outpatient (AMB) | payer OTHER, SELFPAY ==
--- NOTE | 2023-11-29 14:47 | MHC.OFFVIS ---
Intake Visit Reasons: 6M Ultrasound(set) Intake Note: Patient is Present for Telephone 6M Follow Up ULTRASOUND Urology Med: Oxybutynin, Vitamin B6 , Tamsulosin Antibiotic Allergy: None Blood Thinner: None Cigar Sorter Required: No Allergies No Known Allergies [No Known Allergies*] Allergy (Verified 11/29/23 14:50) Medication List - Last Reconciled 11/29/23 by Joby Biggs MD ascorbate calcium (vitamin C) 500 mg PO DAILY atenolol 25 mg PO DAILY cholecalciferol (vitamin D3) 25 mcg PO DAILY methimazole 5 mg PO DAILY omeprazole 20 mg PO DAILY oxybutynin chloride ER 10 mg PO DAILY 90 days pyridoxine (vitamin B6) 50 mg PO DAILY 90 days tamsulosin 0.4 mg PO BEDTIME 90 days vitamin B complex (B Complex-Vitamin B12 tablet) 1 tab PO DAILY HPI Comments Details: Lm is a pleasant male. He is a patient of Dr. Acevedo. He is seen for the following urologic conditions - lower urinary tract symptoms - nephrolithiasis Telemedicine Evaluation 15 min Consultation Medypal Matias Video Six-month follow-up stones in lower urinary tract symptoms Imaging - stable stone burden left side. CT scan reviewed from 2022. Stones have remained stable B6 appears to be helpful - reduced to 50 mg States that combination tamsulosin - oxybutynin working well Would like to continue Six month follow-up imaging Lower urinary tract symptoms Progressive symptoms with weakness of stream and nocturia 1-2 times per night Current therapy tamsulosin with oxybutynin Able to sleep through the night with combination PSA - 09/03 1.5 Nephrolithiasis Has been able to pass his own stones Stone intervention - prior ESWL Imaging - 02/03 renal ultrasound to 3 mm stones on right side, left side 1.2 cm, 6 mm and 4 mm stones - 04/07 CT scan left kidney stone cluster is approximately 6 mm x 3 - 10/05 renal ultrasound stones stable at 6 mm - 05/06 renal ultrasound stable left cluster 3 x 5 mm - 05/07 renal ultrasound bilateral stones - cluster of left Therapeutic plan - 6 month follow-up imaging - encourage 64 oz fluid intake each day - lemon therapy PFSH Medical History HTN (hypertension) GERD (gastroesophageal reflux disease) Nephrolithiasis Right inguinal hernia Varicose veins of right lower extremity Supraventricular tachycardia Surgical History Hx of right inguinal hernia repair (~07/09/22) History of esophagogastroduodenoscopy (EGD) H/O colonoscopy Hx of lithotripsy Status post ablation of incompetent vein using laser (03/06/21) H/O vein stripping (06/12/21) Hx of tonsillectomy History of back surgery Family History Father CVD (cardiovascular disease) Mother No problems noted. Brother CVD (cardiovascular disease) Social History Alcohol intake: current Alcohol intake frequency: holidays/special occasions only Patient Tobacco Use Status: Never used Tobacco Review of Systems Const All systems reviewed & are unremarkable except as noted in HPI and below Reports no additional complaints Resp Reports no additional complaints GI Reports no additional complaints Reports as per HPI Musc Reports no additional complaints Physical Exam Telemedicine evaluation Appropriate responses Regular breathing rate and rhythm HEENT Head: Yes normal to inspection Ears: hearing grossly normal bilaterally Eyes General: appearance normal, both eyes and all related structures Neck Neck: Yes normal visual inspection Chest Chest palpation & inspection: normal inspection of the chest Resp Effort & Inspection: normal respiratory effort and able to speak in complete sentences Telehealth Telehealth Telehealth Platform: Medypal Location of provider rendering services: practice address Location of patient: address on file Patient Identification confirmed using: Name, : Yes Telehealth method: video Patient verbally consented to treatment: Yes Patient verbally consented to billing insurance company: Yes Patient informed of any privacy concerns related to visit: Yes Minutes spent on Phone/Video with Pt.: 15 Assessment & Plan Assessment & Plan (1) Nephrolithiasis: Code(s): N20.0 - Calculus of kidney Category: Medical (2) BPH loc w urin obs/LUTS: Code(s): N40.1 - Benign prostatic hyperplasia with lower urinary tract symptoms Category: Medical Plan Six-month follow-up Orders: Orders CT abdomen wo IV con 6 Months N20.0 - Calculus of kidney Medications: Refilled pyridoxine (vitamin B6) 50 mg PO DAILY 90 days 90 tabs 3RF N13.2 - Hydronephrosis with renal and ureteral calculous obstruction, N20.0 - Calculus of kidney Patient Instructions: Imaging studies, laboratory and physical exam results were discussed and reviewed in detail. No major barriers to patient understanding were identified. An opportunity to ask questions regarding the treatment plan was provided. All questions were answered. The patient expressed understanding and agreement with the above treatment plan. The patient is aware they should contact our office by phone for worsening of their current condition or the appearance of new urologic symptoms. Compliance is encouraged with any medications and followup testing that is ordered. It is a privilege to participate in the urologic care of your patient. If you have any questions or concerns regarding treatment for the above conditions, or other urologic issues, please do not hesitate to contact me. The office telephone contact is [phone]. This note is constructed using voice recognition software. While every effort has been made to ensure accuracy hand buffing wheel former errors may have been included. Yours sincerely, Dr Joby Biggs MD, [facility] - Urology Providers of Expert, Compassionate Care for the Genitourinary System Coding Level of Care Code Tele Est Pt Level 3 (35451) Diagnoses Nephrolithiasis N20.0 BPH loc w urin obs/LUTS N40.1
== END 2023-11-29 15:52 | disposition home or self-care (01) ==
LOC: HO.HUSH 14:52
PROVIDERS: PCP Internal Medicine; Visit Provider Urology
DX: N20.0 Calculus of kidney (principal); N40.1 Benign prostatic hyperplasia with lower urinary tract symptoms
CPT/HCPCS: 99213

== ENCOUNTER → 2023-11-29 14:52 | Outpatient (BNVA) | payer OTHER, SELFPAY | PROVIDERS: PCP Internal Medicine; Visit Provider Urology ==

== ENCOUNTER 2024-06-14 16:00 | Outpatient (REF) | payer OTHER, SELFPAY ==
--- NOTE | ~2024-06-14 | CT_ITS ---
CLINICAL HISTORY: N20.0 - Calculus of kidney --- Additional Notes or Special Instructions: Completed. Appear. Authorization start 06 12 2024, authorization finish CT abdomen without IV contrast. Comparison: None Findings: Bilateral nephrolithiasis dirp-iayminy-hnrh-right. Punctate upper pole stone left kidney. 7 mm upper to midpole. 9 x 7 mm and punctate midpole stones, and multiple stones lower pole, largest 7 mm. 3 mm upper pole delete that and punctate midpole stones right kidney. No obstructing stones or hydronephrosis on either side. 7 mm exophytic midpole cyst left kidney. No follow-up required. No acute process evident in the included lung bases. Small hiatal hernia. Dome of the liver incompletely imaged. Otherwise homogeneous. Gallbladder, biliary tree, pancreas, spleen and adrenals unremarkable. No features for bowel obstruction or acute perienteric inflammation of the included bowel. Normal caliber abdominal aorta. Small hemangioma L3. Degenerative changes included lumbar spine. No acute or aggressive appearing bone lesion. Soft tissues intact. Patulous umbilicus. Impression: Bilateral nephrolithiasis with stone burden greater to the right. No obstructing stones or hydronephrosis. This document has been electronically signed by: Neil Baptiste MD on 06/16/2024 05:37:11
--- OUTSIDE RECORDS SUMMARY | 2024-06-14 17:28 | XMS_ITS | Continuity of Care Document ---
Author Organization [facility] [address] [place] [address] Phone [phone] Care Team Providers Care Transmissions Systems Operator Name Role Phone Erwin Acevedo M.D. Care Team Information Recei eda [phone] Problems Active Problems Provider Date Hypercholesterolemia Wyatt Chandler M.D. Onset : 05/03/2023 Obesity Wyatt Chandler M.D. Onset: Body mass index 30+ - obesity Dee Wilson Onset: 05/03/2023 Hyperthyroidism Wyatt Chandler M.D. Onset: Kidney stone Wyatt Chandler M.D. Onset: Paroxysmal supraventricular tachycardia Wyatt sierra M.D. Onset: 05/03/2023 Vitamin D deficiency Wyatt Chandler M.D. Onset : 05/03/2023 Gastroesophageal reflux disease Wyatt Chandler M.D. Onset: 05/03/2023 Non-toxic multinodular goiter Dee Wilson Onset: 05/03/2023 History of calculus of kidney Dee Wilson Onset: 05/03/2023 Toxic multinodular goiter Wyatt Chandler M.D. Onset: 06/29/2023 Social History Type Date Description Comments Sex Unknown Lives With Spouse ETOH Use Rarely consumes alcohol Tobacco Use Start: Unknown Patient has never smoked Allergies and adverse reactions Description No Known Drug Allergies Medications Active Medications SIG Qnty Indications Ordering Provider Date Ipgjrncecyc1ll Tablets take 1 tablets by mouth every day as directed 90tabs Wyatt Chandler M.D. 05/03/2023 Mosswhot79of Tablets Take 1 tablet by mouth daily Erwin Acevedo M.D. Tamsulosin HCL0.4mg Capsules Take 1 capsule daily Joby Biggs Oxybutynin Chloride ER10mg Tablets ER 24HR Take 1 tablet daily Joby Biggs Cfnyfhhhbr46ht Capsules DR 1 by mouth every day Unknown Vital Signs Date Vital Result Comment 04/16/2024 3:03pm BP Systolic 142 mmHg BP Diastolic 90 mmHg Heart Rate 58 /min Height 73 inches 6'1 Weight 270.00 lb BMI (Body Mass Index) 35.6 kg/m2 Results Test Acquired Date Facility Test Result H/L Range Note TSH+Free T4 04/13/2024 [facility] TSH 1.480 uIU/mL 0.450-4. 500 T4,Free(Direct) 1.18 ng/dL 0.82-1.7 7 Triiodothyronine (Total/Free) 04/13/2024 [facility] Triiodothyronine (T3) 176 ng/dL 71-180 Triiodothyronin e (T3), Free 4.1 pg/mL 2.0-4.4 TSH+Free T4 12/09/2023 [facility] TSH 1.190 uIU/mL 0.450-4. 500 T4,Free(Direct) 1.32 ng/dL 0.82-1.7 7 TSH 06/24/2023 [facility] TSH 0.241 uIU/mL Low 0.450-4. 500 Thyroxine (T4) Free, Direct 06/24/2023 [facility] Thyroxine (T4) Free, Direct 1.52 ng/dL 0.82-1.7 7 TSH 05/05/2023 [facility] TSH 0.340 uIU/mL Low 0.450-4. 500 T4 Free & T3 Free 05/05/2023 [facility] Thyroxine (T-4), Serum 12.8 g /dL 1 Free T-3 5.0 pg/mL High 2 Triiodothyronin e (T-3), Serum 167 ng/dL 3 Free Thyroxine 1.54 ng/dL 4 Electrolyte Panel 05/05/2023 [facility] Sodium 143 mmol/L 134-144 Potassium 4.4 mmol/L 3.5-5.2 Chloride 107 mmol/L High 96-106 Carbon Dioxide, Total 22 mmol/L 20-29 Thyroid Peroxidase (Tpo) Ab 05/05/2023 [facility] Thyroid Peroxidase (Tpo) Ab <9 IU/mL 0-34 Thyrotropin Receptor Ab, Serum 05/05/2023 [facility] Thyrotropin Receptor Ab, Serum <1.10 IU/L 0.00-1.7 5 Magnesium 05/05/2023 [facility] Magnesium 1.8 mg/dL 1.6-2.3 1 Reference Range: Adults: 4.2 - 13.0 2 Reference Range: >=20y: 2.0 - 4.4 3 Reference Range: Adults: 55 - 170 4 Reference Range: >=20y: 0.82 - 1.77 Medical Devices Description No Information Available Encounters Type Date Location Provider Dx Diagnosis Office Visit 04/16/2024 3:00p Main Office TYLER Carballo 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 Closed [address] [place] [address] Drive [address] [place] [address] [phone]
== END 2024-06-14 16:01 | disposition home or self-care (01) ==
LOC: HO.CT 16:00
PROVIDERS: PCP Internal Medicine; Visit Provider Urology
DX: N20.0 Calculus of kidney (principal)
CPT/HCPCS: 74150

== ENCOUNTER → 2024-06-14 16:02 | Outpatient (BNV) | payer OTHER, SELFPAY | PROVIDERS: PCP Internal Medicine; Visit Provider Radiology Diagnostic Radiology | DX: N20.0 Calculus of kidney (principal) | CPT/HCPCS: 74150 ==

== ENCOUNTER 2024-06-29 15:11 | Outpatient (AMB) | payer OTHER, SELFPAY ==
--- OUTSIDE RECORDS SUMMARY | 2024-06-29 15:13 | XMS_ITS | Continuity of Care Document ---
Author Organization [facility] [address] [place] [address] Phone [phone] Care Team Providers Care Rx Specialist Name Role Phone Erwin Acevedo M.D. Care Team Information Recei eda [phone] Problems Active Problems Provider Date Hypercholesterolemia Wyatt [...] Medications SIG Qnty Indications Ordering Provider Date Ldbbtffplmi3ni Tablets take 1 tablets by mouth every day as directed 90tabs Wyatt Chandler M.D. 05/03/2023 Lntkizty75eh Tablets Take 1 tablet by mouth daily Erwin Acevedo M.D. Tamsulosin HCL0.4mg Capsules Take 1 capsule daily Joby Biggs Oxybutynin Chloride ER10mg Tablets ER 24HR Take 1 tablet daily Joby Biggs Fdvjebnybm03ou Capsules DR 1 by mouth every day [...] Referral Status Appt Wyatt Abebe M.D. Closed [address] [place] [address] Drive [address] [place] [address] [phone]
--- OUTSIDE RECORDS SUMMARY | 2024-06-29 15:13 | XMS_ITS | Continuity of Care Document ---
Author Organization [facility] Address [address] [place] [address]- Care Team Providers Care Bindery Technician Name Role Phone Erwin Acevedo DO Primary Care Physician Encounter 06/18/24 - 06/25/24 [facility] [address], [address] [place] [address]- [place] Attending Physician: Ann Torres Admitting Physician: Ann Torres Referring Physician: Ann Torres Encounter Type: OutPatient One Time Allergies, Adverse Reactions, Alerts No Known Allergies Medications Atenolol = 20 mg, By Mouth, Daily, 0 Refills, Maintenance, 12/20/11 3:48:46 PM EST Start Date: 12/20/11 Status: Ordered Repeat number: 1 Prilosec OTC = 20 mg, By Mouth, Daily, 0 Refills, Maintenance, 12/20/11 3:49:01 PM EST Start Date: 12/20/11 Status: Ordered Repeat number: 1 Problem List Condition Confirmation Course Effective Dates Status H ealth Status Informant Essential hypertension, benign Confirmed 11/28/11 Active PSVT (paroxysmal supraventricular tachycardia) Confirmed 11/28/11 Active Tachycardia Confirmed 11/28/11 Active Results Radiology Reports * Exam Date Time Procedure Performing Provider Status 06/18/24 1:40 PM US Soft Tissue Head/Neck Carissa Edwards ; Aliyah (Verified) Notes: (US Soft Tissue Head/Neck) Reason For Exam: E04.2 MULTINODULAR GOITER RESULT: US Soft Tissue Head/Neck US Soft Tissue Head/Neck Reason: Multinodular goiter. COMPARISON: Thyroid ultrasound 06/24/2023; Nuclear medicine study 07/18/2023;Ultrasound-guided thyroidFNA 08/02/2023. FINDINGS: RIGHT THYROID LOBE: 7.1 x 2.4 x 3.2 cm, volume 29.4 cc. Nodule findings detailed below. Surrounding thyroid demonstrates heterogeneous echotexture. Diffusely increased parenchymal vascularity. Nodule #1: Mid-gland, 1.1 x 0.7 x 0.7 cm, spongiform, isoechoic, not ioytfs-aozz-gnek, smooth margin, no echogenic foci. TI-RADS Category 1. Unchanged. Nodule #2: Mid-gland, 1.1 x 1.1 x 0.9 cm, mixed cystic and solid, isoechoic, not uaoixw-usrt-njef, smooth margin, no echogenic foci. TI-RADS Category 2. Unchanged. Nodule #3: Lower pole, 1.0 x 0.7 x 0.9 cm, predominately solid, isoechoic, not qbbcuo-lkyp-qaht, ill-defined margin, no echogenic foci. TI-RADS Category 3. Unchanged. Additional scattered subcentimeter nodules which do not meet TI-RADS criteria for imaging follow-up. LEFT THYROID LOBE: 8.4 x 4.3 x 3.5 cm, volume 64.6 cc. Nodule findings detailed below. Surrounding thyroid demonstrates heterogeneous echotexture. Diffusely increased parenchymal vascularity. Nodule #1: Mid-gland, 4.3 x 2.2 x 2.3 cm, predominately solid, isoechoic, not rpypny-irfq-fort, ill-defined margin, no echogenic foci. TI-RADS Category 3. Unchanged given differences in technique. Sampled on 08/02/2023 with benign cytology. Nodule #2: Lower pole, 2.0 x 1.2 x 2.3 cm, mixed cystic and solid, isoechoic, not enmsjk-wndc-yaja,ill-defined margin, no echogenic foci. TI-RADS Category 2. Decreased in size from prior (previously2.6 x 1.7 x 2.9 cm). ISTHMUS: Thickness: 1.0 cm. Nodule #1: Right Isthmus, 0.6 x 0.4 x 0.9 cm, predominately solid, hypoechoic, not zdvmtg-cjgi-rqnv, ill-defined margin, no echogenic foci. TI-RADS Category 4. Unchanged given differences in technique. IMPRESSION: Stable dominant 4.3 cm TI-RADS Category 3 nodule in the left lobe, previously sampled with benign cytology. Subsequent imaging and/or further workup to be determined by the referring picking belt operator. Left lower pole 2.3 cm TI-RADS Category 2 nodule is decreased in size from prior. Additional small nodules bilaterally are unchanged. WSN: [id number] Ordering Physician: Ann Lane Dictated By: Cole De León MD Dictated Date/Time: 06/18/24 2:25 pm Reviewed By: Cole De León MD Signed By: Cole De León MD Signed Date/Time: 06/18/24 2:25 pm Transcribed By: LALIT Transcribed Date/Time: 06/18/24 2:10 pm Patient Care team information Care Team Personnel Name: Erwin Acevedo DO Position: Reference Physician Member Role: PCP Address: [address] [place] [address] Erwin Acevedo MD [place], [place] [address] Telecom: Care Team Related Persons Name: HENRY WARREN Insurance Providers Guarantor name: ANA WARREN Health Plan Information #: 1 Payer: [employer] Member Number: [id number] Policy Number: NA Group Number: [id number] Health Plan Information #: 2 Payer: [employer] Member Number: [id number] Policy Number: NA Group Number: [id number]
--- NOTE | 2024-06-29 15:20 | MHC.OFFVIS ---
Intake Visit Reasons: 6M f/u with imaging Intake Note: Patient is present for 6M/IMAGING Urology Medication:OXYBUUTNIN,TAMSULOSIN,VITAMIN B12,VITAMIN B6 Antibiotic Allergy:NONE Blood Thinner:NONE Risk Control Field Representative Required: No Allergies No Known Allergies (No Known Allergies*) Allergy (Verified 06/29/24 15:22) HPI Comments Details: Lm is a pleasant male. He is a patient of Dr. Acevedo. He is seen for the following urologic conditions - lower urinary tract symptoms - nephrolithiasis Six-month follow-up Six-month follow-up stones in lower urinary tract symptoms Imaging - stable stone burden left side. CT scan reviewed from 2022. Stones have remained stable B6 appears to be helpful - reduced to 50 mg States that combination tamsulosin - oxybutynin working well Would like to continue Twelve month follow-up imaging Lower urinary tract symptoms Progressive symptoms with weakness of stream and nocturia 1-2 times per night Current therapy tamsulosin with oxybutynin Able to sleep through the night with combination PSA - 09/03 1.5 Nephrolithiasis Has been able to pass his own stones Stone intervention - prior ESWL Imaging - 02/03 renal ultrasound to 3 mm stones on right side, left side 1.2 cm, 6 mm and 4 mm stones - 04/07 CT scan left kidney stone cluster is approximately 6 mm x 3 - 10/05 renal ultrasound stones stable at 6 mm - 05/06 renal ultrasound stable left cluster 3 x 5 mm - 05/07 renal ultrasound bilateral stones - cluster of left - 06/08 CT scan minimal stone right side, multiple clusters left side burden unchanged since 2021 Therapeutic plan - 6 month follow-up imaging - encourage 64 oz fluid intake each day - lemon therapy PFSH Medical History HTN (hypertension) GERD (gastroesophageal reflux disease) Nephrolithiasis Right inguinal hernia Varicose veins of right lower extremity Supraventricular tachycardia Surgical History Hx of right inguinal hernia repair (~07/09/22) History of esophagogastroduodenoscopy (EGD) H/O colonoscopy Hx of lithotripsy Status post ablation of incompetent vein using laser (03/06/21) H/O vein stripping (04/29/22) Hx of tonsillectomy History of back surgery Family History Father CVD (cardiovascular disease) Mother No problems noted. Brother CVD (cardiovascular disease) Social History Alcohol intake: current Alcohol intake frequency: holidays/special occasions only Patient Tobacco Use Status: Never used Tobacco Review of Systems Const Denies chills and Denies fever(s) Card Reports no additional complaints and Denies syncope Resp Denies cough GI Denies abdominal pain and Denies heartburn Reports as per HPI and Denies change in libido Neuro Denies syncope Psych Denies change in libido Endo Denies change in libido Physical Exam Const General: cooperative, healthy appearing, comfortable and no acute distress Orientation/consciousness: patient oriented x3 HEENT Face and sinus: Yes normal facial exam Mouth: moist mucous membranes Neck Neck: Yes normal visual inspection, Yes full ROM and Yes trachea midline Chest Chest palpation & inspection: normal inspection of the chest Resp Effort & Inspection: normal respiratory effort, able to speak in complete sentences and no respiratory distress GI Inspection: Yes normal to inspection Back/Spine/Pelvis Cervical Spine: normal cervical lordosis Thoracic/Lumbar Spine: thoracic and lumbar spine normal to inspection Skin General skin exam: no rashes or lesions noted Neuro General: patient oriented x3, gait normal, tone normal and moves all extremities Extrem General: Yes normal to inspection and Yes capillary refill normal Assessment & Plan Assessment & Plan (1) Nephrolithiasis: Code(s): N20.0 - Calculus of kidney Category: Medical (2) Urinary urgency: Code(s): R39.15 - Urgency of urination Category: Medical (3) BPH loc w urin obs/LUTS: Code(s): N40.1 - Benign prostatic hyperplasia with lower urinary tract symptoms Category: Medical Plan Twelve month follow-up renal ultrasound Orders: Orders US renal BI 12 Months N20.0 - Calculus of kidney Medications: Refilled oxybutynin chloride ER 10 mg PO DAILY 90 tabs 3RF 90 days N20.0 - Calculus of kidney tamsulosin 0.4 mg PO BEDTIME 90 caps 3RF 90 days N20.0 - Calculus of kidney pyridoxine (vitamin B6) 50 mg PO DAILY 90 tabs 3RF 90 days N20.0 - Calculus of kidney, N13.2 - Hydronephrosis with renal and ureteral calculous obstruction Patient Instructions: This note is constructed using voice recognition software. While every effort has been made to ensure accuracy resistance welder errors may have been included. Imaging studies, laboratory and physical exam results were discussed and reviewed in detail. No major barriers to patient understanding were identified. An opportunity to ask questions regarding the treatment plan was provided. All questions were answered. The patient expressed understanding and agreement with the above treatment plan. The patient is aware they should contact our office by phone for worsening of their current condition or the appearance of new urologic symptoms. Compliance is encouraged with any medications and followup testing that is ordered. It is a privilege to participate in the urologic care of your patient. If you have any questions or concerns regarding treatment for the above conditions, or other urologic issues, please do not hesitate to contact me. The office telephone contact is [phone]. Sincerely, Dr Joby Biggs MD, [facility] - Urology Compassionate Specialist Care for the Genitourinary System Coding Level of Care Code Est Pt Level 3 (23370) Complex EM visit Add On G2211 Diagnoses Nephrolithiasis N20.0 Urinary urgency R39.15 BPH loc w urin obs/LUTS N40.1
== END 2024-06-29 15:42 | disposition home or self-care (01) ==
LOC: HO.HUSH 15:11
PROVIDERS: PCP Internal Medicine; Visit Provider Urology
DX: N40.1 Benign prostatic hyperplasia with lower urinary tract symptoms (principal); N20.0 Calculus of kidney; R39.15 Urgency of urination
CPT/HCPCS: 99213

== ENCOUNTER → 2024-06-29 15:11 | Outpatient (BNVA) | payer OTHER, SELFPAY | PROVIDERS: PCP Internal Medicine; Visit Provider Urology ==

== ENCOUNTER 2024-10-01 12:28 | Outpatient (REF) | payer OTHER, SELFPAY ==
[2024-10-01 18:20] LABS: Hematocrit 44.0 % (42.0-52.0); Hemoglobin 15.0 g/dl (14.0-18.0); Mean Corpuscular HGB Conc 34.1 g/dl (31.0-36.0); Mean Corpuscular Hemoglobin 31.4 pg (27.0-33.0); Mean Corpuscular Volume 92.2 fL (80.0-98.0); NRBC Abs Auto 0.000 X10*3/uL (0.0-0.012); NRBC Pct Auto 0.0 /100WBC (0.0-0.2); Platelet Count 203 X10*3/uL (160-400); Red Blood Count 4.77 X10*6/uL (4.60-5.80); White Blood Count 5.1 X10*3/uL (4.8-10.8)
[2024-10-01 18:38] LABS: Alanine Aminotransferase 30 U/L (0-40); Albumin Level 4.3 g/dL (3.5-5.0); Alkaline Phosphatase 66 U/L (39-117); Anion Gap 11 (12-20); Aspartate Amino Transferase 29 U/L (5-37); Blood Urea Nitrogen 14 mg/dL (9-16); Calcium 9.5 mg/dL (8.4-10.2); Carbon Dioxide 28 mmol/L (22-29); Chloride 107 mmol/L (96-108); Cholesterol 171 mg/dL (<200); Estimated Glomerular Filt Rate > 60; HDL Cholesterol 38 mg/dL (>40); Potassium 4.3 mmol/L (3.3-5.1); Sodium 142 mmol/L (135-145); Total Protein 6.8 g/dL (6.5-8.0); Triglycerides 118 mg/dL (<150)
[2024-10-01 18:46] LABS: Microalbum/Creatinine Ratio Ur 10.6 ug/mg cr (<30)
[2024-10-01 19:04] LABS: Folate 7.4 ng/mL (> or = 4.0); Vitamin B12 > 2000 pg/mL (200-900)
== END 2024-10-01 12:29 | disposition home or self-care (01) ==
LOC: HO.WFDLDS 12:28
PROVIDERS: PCP Nurse Practitioner Family; Visit Provider Nurse Practitioner Family
DX: Z00.00 Encounter for general adult medical examination without abnormal findings (principal); E04.1 Nontoxic single thyroid nodule; E66.9 Obesity, unspecified; N40.1 Benign prostatic hyperplasia with lower urinary tract symptoms; K21.9 Gastro-esophageal reflux disease without esophagitis; I10 Essential (primary) hypertension; E05.00 Thyrotoxicosis with diffuse goiter without thyrotoxic crisis or storm; I47.10 Supraventricular tachycardia, unspecified; E55.9 Vitamin D deficiency, unspecified; N20.0 Calculus of kidney; I83.12 Varicose veins of left lower extremity with inflammation; Z23 Encounter for immunization; Z76.89 Persons encountering health services in other specified circumstances; Z12.5 Encounter for screening for malignant neoplasm of prostate; Z68.35 Body mass index [BMI] 35.0-35.9, adult
CPT/HCPCS: 36415; 80053; 80061; 82043; 82306; 82570; 82607; 82746; 84153; 84443; 85027; 90471; 90715; 96127

== ENCOUNTER 2024-10-01 12:28 | Outpatient (AMB) | payer OTHER, SELFPAY ==
--- OUTSIDE RECORDS SUMMARY | 2023-11-23 16:15 | XMS_ITS | Encounter Summary ---
Author Organization [facility] Address [address] [place] [address] [phone] Phone Care Team Providers Care Detail Maker And Fitter Name Role Phone Erwin Acevedo DO Primary Care Provider Encounter Details Date Type Department Care Team (Late st Contact Info) Description 11/23/2023 4:15 PM EDT Hospital Encounter [facility] [address] [place] [phone] Olamide Antonio CNP [address] [place] [phone] Social History Tobacco Use Types Packs/Day Years [...] Modality Foot Right Computed Radiogr aphy 11/23/2023 4:5 8 PM EDT Impressions 11/23/2023 4:59 PM EDT Soft tissue swelling of the foot and toes. No acute osseous stability of the right foot. Narrative 11/23/2023 4:59 PM EDT XR FOOT 3 OR MORE VIEWS (RIGHT) Referring clinician's provided indication for this examination in [facility]: Pain; Trauma; Pain along fifth metatarsal, twisted [...] clinician's provided indication for this examination in [facility]:Pain; Trauma; Pain along fifth metatarsal, twisted and tripped down 2steps at home last evening COMPARISON: None FINDINGS: There is no acute fracture or dislocation. Lateral soft tissue swellingand soft tissue swelling of the fourth and fifth toes. Mild degenerativechanges of the midfoot. IMPRESSION: Soft tissue swelling of the foot and toes. No acute osseous stability ofthe right foot. us Olamide Antonio POWERHOUSE MECHANIC APPRENTICE IMG XR LOWER EXTREMITY Junie l Result documented in this encounter Visit Diagnoses Not on filedocumented in this encounter Care Teams Detail Maker And Fitter Relationship Specialty Start Date End Date Erwin Acevedo DO [address] [place] [phone] PCP - General 10/16/17 documented as of this encounter Additional Source Comments The information contained in this document represents components of the legal health record. It is not the complete legal health record.[facility]
--- NOTE | 2024-10-01 12:36 | MHC.PC.OV ---
Vital Signs 10/01/24 12:43 Height 6 ft 2 in Weight 277 lb 4 oz BMI 35.6 BP 122/74 Blood Pressure Location Rt brachial Position Sitting Respiration 12 Pulse 51 Pulse Source Pulse Oximeter Temp 97.1 F Temp Source Oral Pulse Oximetry (%) 96 Oxygen Delivery Method Room Air Intake Visit Reasons: Est. Care Intake Note: New patient to establish care. 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 Allergies No Known Allergies (No Known Allergies*) Allergy (Verified 10/01/24 13:04) Medication List - Last Reconciled 10/01/24 by OMAIRA Talbert- ascorbate calcium (vitamin C) 500 mg PO DAILY atenolol 25 mg PO DAILY cholecalciferol (vitamin D3) 25 mcg PO DAILY methimazole 5 mg PO DAILY omeprazole 20 mg PO DAILY oxybutynin chloride ER 10 mg PO DAILY 90 days pyridoxine (vitamin B6) 50 mg PO DAILY 90 days tamsulosin 0.4 mg PO BEDTIME 90 days vitamin B complex (B Complex-Vitamin B12 tablet) 1 tab PO DAILY Tobacco use date assessed: 10/01/24 Fall risk assessment: No Falls in past year Last assessed Fall Risk: 10/01/24 Dental Screening Dental Screen Date: 10/01/24 Did you have a dental visit in the last 12 months?: No Did you have a dental problem in the last 6 months where you did not have access to dental care?: No Was dental information given to patient?: Patient declined HPI HPI Comments History of Present Illness Details Lm 69 y/o M with BPH, SVT, Varicose veins, HTN, GERD, Small hiatal hernia, Graves, nodular thyroid s/p back surgery, lithotripsy, right inguinal hernia repair, tonsillectomy, venous ablation LLE, L meniscal tear repair, s/p thyroid nodule bx negative. Social: Health Maintenance: Colon 2022 Tdap 09/2024 Specialists: [facility] at [facility] Dr Osborne 09/2024 History of Present Illness - The patient is a 69-year-old male presenting establish primary care. - Previous PCP: Dr Acevedo; no records - Medical history of obesity, BMI 35.6. - Chronic vitamin D deficiency; supplemented regularly. - GERD; maintained on omeprazole. - BPH; on tamsulosin, oxybutynin, managed by urology. - Hypertension; taking atenolol, managed by cardiology. - SVT; managed with atenolol. - Hyperthyroidism; on methimazole, with benign thyroid nodules. - Previous left knee arthroscopy. - Kidney stones; managed with vitamin B6. - Recent sty in R eye treated with antibiotics. 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 Review of Systems - General: Reports recent sty, denies weakness or fatigue. - Cardiovascular: Reports history of hypertension and SVT. - Endocrine: Reports elevated thyroid levels, benign thyroid nodules. - Gastrointestinal: Reports chronic GERD. - Genitourinary: Reports lower urinary tract symptoms. - Musculoskeletal: Reports history of left knee surgery, some ongoing pain. - Eye: Reports recent sty, improved with antibiotics. - Psychological: Reports recent loss of spouse. Physical Exam General: Well developed, well nourished, in no acute distress. Appears stated age. Head: Normocephalic, atraumatic. Eyes: Pupils are equal, round and reactive to light and accommodation. Conjunctivae are clear. Vision grossly normal. Stye left lower lid Lungs: Clear to auscultation bilaterally. No rales, rhonchi or wheeze noted. dim throughout Heart: Regular rate and rhythm. No murmurs, click, rubs or gallops are noted. Psych: Mood and affect appropriate. Results Pending Discussion Notes During the visit, the patient and I discussed his intention to establish primary care and reviewed his comprehensive medical history. We addressed his current management for existing conditions including hypertension, BPH, GERD, and hyperthyroidism. I explained the potential liver side effects associated with methimazole for his hyperthyroidism and the need for regular monitoring. I encouraged staying on prescribed medications. We reviewed the current medications and their purposes, including their continued necessity for his stable conditions. Proactively, I recommended routine lab tests for baseline assessments and updated vaccinations, specifically offering a tetanus booster due to his regular barn work. I provided insights on the potential next steps for his healthcare management and emphasized the use of the patient portal for communication and appointment scheduling. Additionally, we discussed his recent experiences with urgent care and strategies for optimizing emergency responses if required. Patient was given time to ask questions. All questions were answered to their satisfaction. Assessment and Plan 1. Establishing primary care - Reviewed medical history. - Recommended baseline labs and tetanus vaccine. 2. Hypertension and SVT - Controlled with atenolol; follow cardiology. 3. GERD - Continue omeprazole. 4. BPH - Continue regimen; follow urology. 5. Hyperthyroidism - Continue methimazole; follow endocrinology for thyroid monitoring. 6. Obesity - Encouraged weight management. 7. Vitamin D deficiency, kidney stones - Continue vitamin D, B6 supplements. 8. Recent sty in eye - Resolved with antibiotics. labs today, RTO Dec sAWV, sooner PRN Patient Instructions - Keep taking all current medications as prescribed. - Go to the senior front end developer for lab orders and blood work. - Fill out a release of records form. - Return for a follow-up visit in January for annual wellness check. - Use patient portal to communicate with me before urgent care visits. - Stay active and continue barn activities safely. - Follow up with cardiology and any other specialists as needed. Consent Patient was informed and verbally consented to the use of an ambient scribe for clinic note documentation during this visit. Total time spent caring for the patient today was 40 minutes. This includes time spent before the visit reviewing the chart, time spent during the visit, and time spent after the visit on documentation, reviewing laboratory results, diagnostic imaging, medications, performing a medically necessary evaluation, counseling on diagnoses, care coordination, ordering appropriate tests, ordering appropriate medications, review of tests performed by other providers, reporting test results with the patient, communication with other healthcare providers. [facility] Medical History (Updated 10/01/24 @ 13:29 by Do Harvey, [facility]) GERD (gastroesophageal reflux disease) HTN (hypertension) Nephrolithiasis Right inguinal hernia Supraventricular tachycardia Tachycardia Thyroid disorder Varicose veins of right lower extremity Surgical History H/O colonoscopy (~2022) H/O knee surgery (~2022) H/O vein stripping (06/12/21) History of back surgery History of esophagogastroduodenoscopy (EGD) Hx of lithotripsy Hx of right inguinal hernia repair (~07/09/22) Hx of tonsillectomy Status post ablation of incompetent vein using laser (03/06/21) Family History Father CVD (cardiovascular disease) Mother No problems noted. Brother CVD (cardiovascular disease) Social History (Updated 10/01/24 @ 12:46 by Maged Jean MA) Household Members: None Both parents involved: No Caregiver staying overnight: No Housing: House Are you a primary cardiac care unit nurse to a significant other at home: No Do you presently have visiting nurse or other home services: No 75 years or older and lives alone: No Alcohol intake: current Alcohol intake frequency: a few times a month Patient Tobacco Use Status: Never used Tobacco e-Cigarette/Vaping Use: Never Used Second Hand Smoke Exposure: No service: No Current occupational status: employed 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 1. Little interest or pleasure in doing things: not at all 2. Feeling down, depressed, or hopeless: not at all 3. Trouble falling or staying asleep, or sleeping too much: not at all 4. Feeling tired or having little energy: not at all 5. Poor appetite or overeating: not at all 6. Feeling bad about yourself - or that you are a failure or have let yourself or your family down: not at all 7. Trouble concentrating on things, such as reading the newspaper or watching television: not at all 8. Moving or speaking so slowly that other people could have noticed. Or the opposite - being so fidgety or restless that you have been moving around a lot more than usual: not at all 9. Thoughts that you would be better off or of hurting yourself in some way: not at all Total score: 0 Depression Screening Interpretation: Negative Depression Screening Done: Yes 62159 - PHQ-9 Billing: Yes Source: Developed by Drs. Erwin Liu, Yvonne Joyce, Laureano Cavanaugh and colleagues, with an educational laz from [employer]. Thrive Questionnaire Date Thrive assessed: 10/01/24 I am a: Patient What is your living situation today?: I have a steady place to live Within the past 12 months, did the food you bought not last and you didn't have the money to get more?: Never true Within the past 12 months, did you worry whether your food would run out before you got money to buy more?: Never true Do you have trouble paying for medicines?: No Do you have trouble getting transportation to medical appointments?: No Do you have trouble paying your heating and electricity bill?: No Do you have trouble taking care of your child, family member or friend?: No Do you have trouble with day-to-day activities such as bathing, preparing meals, shopping, managing finances, etc.?: No Are you currently unemployed and looking for a job?: No Are you interested in more education?: No Please select the resources that you would like help with: None Currently or been in a relationship where the following occur: No concerns reported THRIVE Score: 0 AUDIT C Alcohol Use Questionnaire (AUDIT-C) 1. How often do you have a drink containing alcohol?: Monthly or less 2. How many drinks containing alcohol do you have on a typical day when you are drinking?: 1 or 2 3. How often do you have six or more drinks on one occasion?: Never Total Score: 1 Score Reviewed/Action Taken: Yes EBKA-7 AMB Questionnaire BEKA-7 Date BEKA - 7 assessed: 10/01/24 Feeling nervous, anxious, or on edge: 0 = Not at all Not being able to stop or control worryin = Not at all Worrying too much about different things: 0 = Not at all Trouble relaxin = Not at all Being so restless that it is hard to sit still: 0 = Not at all Becoming easily annoyed or irritable: 0 = Not at all Feeling afraid as if something awful might happen: 0 = Not at all Total BEKA-7 score (0-4 normal; 5-9 mild; 10-14 moderate; 15-21 severe): 0 Source: Developed by Drs. Erwin Liu, Yvonne Joyce, Laureano Cavanaugh and colleagues, with an educational laz from [employer]. BEKA-7 Assessment Billing BEKA-7 Assessment Tool: BEKA-7 Assessment 41102 Physical exam (Primary Care) Vital Signs: Last Vital Signs Temp 97.1 F 10/01/24 12:43 Pulse 51 10/01/24 12:43 Resp 12 10/01/24 12:43 BP 122/74 10/01/24 12:43 Pulse Ox 96 10/01/24 12:43 Oxygen Delivery Method Room Air 10/01/24 12:43 BMI result Body Mass Index 35.6 BMI Assessment/Plan discussion: High BMI High, discussed plan: lifestyle Tobacco/Smoking Status: Tobacco use Status Tobacco use date assessed 10/01/24 10/01/24 12:39 Patient Tobacco Use Status Never used Tobacco 10/01/24 12:46 e-Cigarette/Vaping Use Never Used 10/01/24 12:46 PHQ-9: PHQ-9 Score PHQ-9: Total score 0 10/01/24 12:45 Depression Screening Interpretation: Negative Thrive Assessment: Date of Thrive Assessment Date Thrive assessed 10/01/24 10/01/24 12:39 Currently or been in a relationship where the following occur: No concerns reported Coding Level of Care Code New Pt Level 4 (22685) Complex EM visit Add On G2211 Diagnoses Encounter to establish care with new provider Z76.89 Obesity (BMI 30-39.9) E66.9 Supraventricular tachycardia I47.1 Varicose veins of left lower extremity with inflammation I83.12 Nodular thyroid disease E04.1 BPH loc w urin obs/LUTS N40.1 Laboratory exam ordered as part of routine general medical examination Z00.00 Need for Tdap vaccination Z23 Primary hypertension I10 Hypertension type: primary hypertension Gastroesophageal reflux disease without esophagitis K21.9 Esophagitis presence: without esophagitis Nephrolithiasis N20.0 Additional Codes BEKA-7 Assessment Billing - BEKA-7 Assessment Tool: BEKA-7 Assessment 50347 ([id number]) PHQ-9 - 71700 - PHQ-9 Billing: Yes ([id number]) Assessment & Plan Assessment & Plan (1) Encounter to establish care with new provider: Code(s): Z76.89 - Persons encountering health services in other specified circumstances (2) Obesity (BMI 30-39.9): Code(s): E66.9 - Obesity, unspecified Category: Medical (3) Supraventricular tachycardia: Comment: follows w/[facility] yearly Code(s): I47.1 - Supraventricular tachycardia Category: Medical (4) Varicose veins of left lower extremity with inflammation: Comment: 03/06/2021 - left great saphenous vein Cyanoacralate ablation 06/12/2021 - left leg microphlebectomy Code(s): I83.12 - Varicose veins of left lower extremity with inflammation Category: Medical (5) Nodular thyroid disease: Comment: managed by [facility] Edmundo, jace appt 11/2024 Code(s): E04.1 - Nontoxic single thyroid nodule Category: Medical (6) BPH loc w urin obs/LUTS: Comment: [facility] URO Code(s): N40.1 - Benign prostatic hyperplasia with lower urinary tract symptoms Category: Medical (7) Laboratory exam ordered as part of routine general medical examination: Code(s): Z00.00 - Encounter for general adult medical examination without abnormal findings Category: Medical (8) Need for Tdap vaccination: Onset Date: 09/2024 Code(s): Z23 - Encounter for immunization Category: Medical (9) HTN (hypertension): Code(s): I10 - Essential (primary) hypertension Category: Medical Qualifiers: Hypertension type: primary hypertension Qualified Code(s): I10 - Essential (primary) hypertension (10) GERD (gastroesophageal reflux disease): Code(s): K21.9 - Gastro-esophageal reflux disease without esophagitis Category: Medical Qualifiers: Esophagitis presence: without esophagitis Qualified Code(s): K21.9 - Gastro-esophageal reflux disease without esophagitis (11) Nephrolithiasis: Code(s): N20.0 - Calculus of kidney Category: Medical Plan . Orders: Orders Comprehensive Met. Panel Today E04.1 - Nontoxic single thyroid nodule, E66.9 - Obesity, unspecified, I47.1 - Supraventricular tachycardia, N40.1 - Benign prostatic hyperplasia with lower urinary tract symptoms, Z00.00 - Encounter for general adult medical examination without abnormal findings Microalbumin, Random (w Creat) Today E04.1 - Nontoxic single thyroid nodule, E66.9 - Obesity, unspecified, I47.1 - Supraventricular tachycardia, N40.1 - Benign prostatic hyperplasia with lower urinary tract symptoms, Z00.00 - Encounter for general adult medical examination without abnormal findings TSH reflex Free T4 Today E04.1 - Nontoxic single thyroid nodule, E66.9 - Obesity, unspecified, I47.1 - Supraventricular tachycardia, N40.1 - Benign prostatic hyperplasia with lower urinary tract symptoms, Z00.00 - Encounter for general adult medical examination without abnormal findings Vitamin B12 and Folate Today E04.1 - Nontoxic single thyroid nodule, E66.9 - Obesity, unspecified, I47.1 - Supraventricular tachycardia, N40.1 - Benign prostatic hyperplasia with lower urinary tract symptoms, Z00.00 - Encounter for general adult medical examination without abnormal findings Prostate Specific Antigen Scr Today E04.1 - Nontoxic single thyroid nodule, E66.9 - Obesity, unspecified, I47.1 - Supraventricular tachycardia, N40.1 - Benign prostatic hyperplasia with lower urinary tract symptoms, Z00.00 - Encounter for general adult medical examination without abnormal findings Vitamin D 25-OH Total Today E04.1 - Nontoxic single thyroid nodule, E66.9 - Obesity, unspecified, I47.1 - Supraventricular tachycardia, N40.1 - Benign prostatic hyperplasia with lower urinary tract symptoms, Z00.00 - Encounter for general adult medical examination without abnormal findings Complete Blood Count no Diff Today E04.1 - Nontoxic single thyroid nodule, E66.9 - Obesity, unspecified, I47.1 - Supraventricular tachycardia, N40.1 - Benign prostatic hyperplasia with lower urinary tract symptoms, Z00.00 - Encounter for general adult medical examination without abnormal findings Lipid Panel Today E04.1 - Nontoxic single thyroid nodule, E66.9 - Obesity, unspecified, I47.1 - Supraventricular tachycardia, N40.1 - Benign prostatic hyperplasia with lower urinary tract symptoms, Z00.00 - Encounter for general adult medical examination without abnormal findings Patient Instructions: Patient Instructions - Keep taking all current medications as prescribed. - Fill out a release of records form. - Return for a follow-up visit in January for annual wellness check. - Use patient portal to communicate with me before urgent care visits. - Stay active and continue barn activities safely. - Follow up with cardiology and any other specialists as needed. - Tdap admin today Walk-In Care (Urgent Care): We Make it Easy Walk-in for urgent medical issues such as: ? Seasonal Allergies ? Insect Bites ? Cough ? Diarrhea ? Acute Asthma Attacks ? Back, Knee or Joint Pain ? Ear Infection ? Fever without a Rash ? Headaches ? Nausea ? Antonito Eye, Rash or Skin Irritation ? Sore Throat ? Sports Physicals ? Vomiting Most insurances are accepted. Patients do not need to be part of the [facility] to seek care at the walk-in clinic. Locations [facility] Christy Feliz, [place] [address] ? [phone] [facility] Walk-In Care in [place] provides services to ages 18 and over. Open Tuesday-Tuesday: 8 a.m. to 5 p.m. and Tuesday: 9 a.m. to 3 p.m.* *Hours may vary due to staffing availability. To confirm Walk-In Care hours in [place], please call [phone]. [address] [place] [address] ? [phone] [facility] Walk-In Care in [place] provides services to ages 12 and over. Open Tuesday-Tuesday: 8 a.m. to 5 p.m. Hours may vary due to staffing availability. To confirm Walk-In Care hours in [place], please call [phone]. LABORATORY SERVICES: [facility] Lab ? Primary Location [address] [place] [address] Tuesday through Tuesday 6:00 AM ? 5:00 PM Tuesday 7:00 AM ? 11:00 AM* [phone] The [facility] Lab is centrally located near the front entrance of the [facility] for easy outpatient access. Convenient parking is provided for outpatients. *Hours may vary due to staffing availability. To confirm Laboratory hours for any location, please call [phone]. Offsite Location For your convenience, we offer offsite laboratory draw stations at the following locations: [address] [place] [address] ? [address], [address] Tuesday through Tuesday 7:30 AM ? 1:00 PM* [phone] *Hours may vary due to staffing availability. To confirm Laboratory hours for any location, please call [phone]. [place] ? [address] Tuesday through Tuesday 6:00 AM ? 3:30 PM* Tuesday 6:30 AM ? 3 PM* [phone] *Hours may vary due to staffing availability. To confirm Laboratory hours for any location, please call [phone] [place] [address] Tuesday through Tuesday 7:30 AM ? 4:00 PM* [phone] *Hours may vary due to staffing availability. To confirm Laboratory hours for any location, please call [phone] [place] [address] Tuesday through 9:00 AM ? 4:00 PM* *Hours may vary due to staffing availability. To confirm Laboratory hours for any location, please call [phone]. Appointments are not necessary. Walk-ins are welcome. Like all the departments throughout the [facility], our Lab undergoes frequent reviews to ensure the quality and accuracy of test results, and our staff takes special pride in its status as a nationally accredited facility. Patient Portal: ONE PATIENT. ONE RECORD. BETTER CARE. [facility] has a fully integrated, cutting-edge mobile electronic health information system that has revolutionized the way we care for our patients and manage our organization. This system improves communication and coordination enabling us to provide safe, higher-quality care, and an overall positive experience for staff and patients. Our first priority, as always, is to deliver the highest quality care possible. The system is running in the background supporting that priority. This portal is for all [facility] services and practices. If you are experiencing any technical difficulties with enrolling or logging into the Patient Portal please complete the [facility] Patient Portal Technical Support Form. [facility] now offers a new secure on-line interactive tool for patients to review their health information ? ?Patient Portal. This interactive web portal will enable patients and their families to take an active role in their care by providing easy, secure access to their health information via the internet. The Patient Portal provides patients with instant access to their health information, including laboratory results, medications, allergies, demographic information, visit history, and more. In addition to managing their own care, parents and health care proxies with authorized consent will appreciate the ability to access the records of those individuals for whom they provide care. Please note: if you wish to gain access (Proxy) to another patient?s portal, you will be required to come to the Medical Records Department in person at [facility]. Both the patient giving proxy access and the proxy will need to provide photo identification and complete the appropriate authorization. The Patient Portal also allows track their appointments online. The [facility] Patient Portal also saves patients time by allowing them to submit updates to their demographic and contact information prior to their visits. Portal email notifications will also alert patients to any new activity on their portal, such as test results and new appointments. In order to initially enroll in the [facility] Patient Portal, you will need to enter some required information including the following: your [facility] Medical Record number your personal home email address name date of Please note: In order to enroll in the [facility] Patient Portal, we need to have your email address on file in your electronic medical record. ?The email address needs to be specific for one person (yourself) in order for your Portal enrollment to be successful. ?You can update your email address in person with our Registration staff when you are registering for a hospital visit. ?Otherwise, you will need to come to the Health Information Management (Medical Records) Department at [facility]. ?We are open from Tuesday ? Tuesday from 7:30 a.m. ? 4:30 p.m. ?You will be required to present a photo id. Once you have successfully enrolled in the Patient Portal, you will receive a one-time user id and password for the Portal, sent to your email address. ?This will allow you to log into the Patient Portal within 99 hrs and reset your own logon id and password, and define personal security questions. ?Once your permanent login and password have been set, you can log into the [facility] Patient Portal at any time via the blue button above or from the Portal Logon button on any page of the [facility] website. [facility] and [facility] encourage all of our patients to enroll in Patient Portal as it presents a valuable opportunity for patients and their families to actively participate in their care and stay healthy Welcome to [facility]. ?We look forward to working with you.
[2024-10-01 12:43] VITALS: BP 122/74; PULSE 51; RESP 12; TEMP 36.2; O2SAT 96; BMI 35.6
--- OUTSIDE RECORDS SUMMARY | 2024-10-01 13:30 | XMS_ITS | Continuity of Care Document ---
Author Organization [facility] [address] [place] [address] Phone [phone] Care Team Providers Care Tipple Worker Name Role Phone Erwin Acevedo M.D. Care Team Information Recei eda [phone] Problems Active Problems Provider Date Hypercholesterolemia Wyatt [...] Social History Type Date Description Comments Sex Male Sex Unknown Lives With Spouse ETOH Use Rarely consumes alcohol Tobacco Use Start: Unknown Patient has never smoked Allergies and adverse reactions Description No Known Drug Allergies Medications Active Medications SIG Qnty Indications Ordering Provider Date Rhfehyuuctt4as Tablets take 1 tablets by mouth every day as directed 90tabs Flor Golden M.D. 05/03/2023 Irpsviqr42xb Tablets Take 1 tablet by mouth daily Erwin Acevedo M.D. Tamsulosin HCL0.4mg Capsules Take 1 capsule daily Joby Biggs Oxybutynin Chloride ER10mg Tablets ER 24HR Take 1 tablet daily Joby Biggs Knzrqsqkep22hz Capsules DR 1 by mouth every day Unknown Vital Signs Date Vital Result Comment 08/14/2024 1:09pm BP Systolic 132 mmHg BP Diastolic 80 mmHg Heart Rate 63 /min Height 73 inches 6'1 Weight 277.50 lb BMI (Body Mass Index) 36.6 kg/m2 Results Test Acquired Date Facility Test Result H/L Range Note TSH Rfx on Abnormal to Free T4 08/10/2024 [facility] TSH Rfx on Abnormal to Free T4 1.240 uIU/mL 0.450-4. 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 Closed [address] [place] [address] [address] [place] [address] [phone]
== END 2024-10-01 13:58 | disposition home or self-care (01) ==
LOC: HO.HMCFM 12:29
PROVIDERS: PCP Nurse Practitioner Family; Visit Provider Nurse Practitioner Family
DX: I47.10 Supraventricular tachycardia, unspecified (principal); I83.12 Varicose veins of left lower extremity with inflammation; E66.9 Obesity, unspecified; Z68.35 Body mass index [BMI] 35.0-35.9, adult; Z76.89 Persons encountering health services in other specified circumstances; E04.1 Nontoxic single thyroid nodule; N40.1 Benign prostatic hyperplasia with lower urinary tract symptoms; Z23 Encounter for immunization; I10 Essential (primary) hypertension; K21.9 Gastro-esophageal reflux disease without esophagitis; N20.0 Calculus of kidney

== ENCOUNTER 2024-12-17 15:18 | Outpatient (AMB) | payer OTHER, SELFPAY ==
--- OUTSIDE RECORDS SUMMARY | 2023-11-23 15:15 | XMS_ITS | Encounter Summary ---
Author Organization [facility] Address [address] [place] [address] [place] [phone] Phone Care Team Providers Care Front Desk Clerk Name Role Phone Erwin Acevedo DO Primary Care Provider Encounter Details Date Type Department Care Team (Late st Contact Info) Description 11/23/2023 4:15 PM EDT Hospital Encounter [facility] [address] [place] [phone] Olamide Antonio CNP [address] [place] [phone] Social History Tobacco Use Types Packs/Day Years Used Date Smoking Tobacco: Never Smokeless Tobacco: Never Education Answer Date Recorded Are you interested in more education? Not on robb e 06/11/2022 Are you concerned about learning? Not on file 06/11/2022 No 06/11/2022 No 06/11/2022 Digital Access Answer Date Recorded No 07/10/2022 No 07/10/2022 Reliable internet access at home? Not on file 07/10/2022 Device with a working camera? Not on file Sex and Gender Information Value Date Recorded Sex Assigned at Not on file Legal Sex Male 10:35 PM EDT Gender Identity Not on file Sexual Orientation Not on file documented as of this encounter Plan of Treatment Not on file documented as of this encounter Procedures Procedure Name Priority Date/Time Associated Diagnosis Comments XR FOOT 3 OR MORE VIEWS (RIGHT) Urgent/patient waiting 11/23/2023 4:27 PM EDT Fall (on) (from) other stairs and steps, initial encounter Right foot pain documented in this encounter Results * XR FOOT 3 OR MORE VIEWS (RIGHT) (11/23/2023 4:27 PM EDT) Anatomical Region Laterality Modality Foot Right Computed Radiogr aphy 11/23/2023 4:58 PM EDT Impressions 11/23/2023 4:59 PM EDT Soft tissue swelling of the foot and toes. No acute osseous stability of the right foot. Narrative 11/23/2023 4:59 PM EDT XR FOOT 3 OR MORE VIEWS (RIGHT) Referring clinician's provided indication [facility] this [facility]: Pain; Trauma; Pain along fifth metatarsal, twisted and tripped down 2 steps at home last evening COMPARISON: None FINDINGS: There is no acute fracture or dislocation. Lateral soft tissue swelling and soft tissue swelling of the fourth and fifth toes. Mild degenerative changes of the midfoot. Procedure Note Lizzie Galindo MD, PhD - 11/23/2023 XR FOOT 3 OR MORE VIEWS (RIGHT) Referring clinician's provided indication for this examination in [facility]:Pain; Trauma; Pain along fifth metatarsal, twisted and tripped down 2steps at home last evening COMPARISON: None FINDINGS: There is no acute fracture or dislocation. Lateral soft tissue swellingand soft tissue swelling of the fourth and fifth toes. Mild degenerativechanges of the midfoot. IMPRESSION: Soft tissue swelling of the foot and toes. No acute osseous stability ofthe right foot. us Olamide Antonio SQL SSRS SSIS DEVELOPER IMG XR LOWER EXTREMITY Junie l Result documented in this encounter Visit Diagnoses Not on filedocumented in this encounter Care Teams Front Desk Clerk Relationship Specialty Start Date End Date Erwin Acevedo DO [address] [place] [id number] PCP - General 11/29/16 documented as of this encounter Additional Source Comments The information contained in this document represents components of the legal health record. It is not the complete legal health record.[facility]
--- NOTE | 2024-12-17 15:20 | A.OFFVIS_ITS ---
Vital Signs 12/17/24 15:21 12/17/24 15:48 Height 6 ft 2 in Weight 279 lb 15.793 oz BMI 35.9 BP 140/82 H 122/78 Blood Pressure Location Lt brachial Lt brachial Position Sitting Sitting Pulse 56 Intake Visit Reasons: 1yr fu Intake Note: 1 year follow-up c/o still has some palpitations Furnace Combination Analyst Required: No Allergies No Known Allergies (No Known Allergies*) Allergy (Verified 10/01/24 13:04) Medication List - Last Reconciled 12/17/24 by Yasmani Mao MD ascorbate calcium (vitamin C) 500 mg PO DAILY atenolol 25 mg PO DAILY cholecalciferol (vitamin D3) 25 mcg PO DAILY methimazole 5 mg PO DAILY omeprazole 20 mg PO DAILY oxybutynin chloride ER 10 mg PO DAILY 90 days pyridoxine (vitamin B6) 50 mg PO DAILY 90 days tamsulosin 0.4 mg PO BEDTIME 90 days vitamin B complex (B Complex-Vitamin B12 tablet) 1 tab PO DAILY HPI Comments Details: Neil comes for follow-up. Since I last saw him he has been currently on methimazole and his TSH has normalized and so has his free T3 levels. Overall he does not feel any different. He said his blood pressure has been generally well controlled. When he came in 1st his blood pressure is 148/78 range although I remeasured it at 122/78. He denies any worsening exertional chest pain or shortness of breath. Has symptoms of palpitation where he said he has sudden feels slowed thirds in his chest associated with lightheadedness. No syncopal episodes. No rapid heart rate noted. No other heart failure symptoms. No actual syncopal episodes. [facility] Medical History Thyroid disorder Tachycardia HTN (hypertension) GERD (gastroesophageal reflux disease) Nephrolithiasis Right inguinal hernia Varicose veins of right lower extremity Supraventricular tachycardia Surgical History H/O knee surgery (~2022) Hx of right inguinal hernia repair (~07/09/22) History of esophagogastroduodenoscopy (EGD) H/O colonoscopy (~2022) Hx of lithotripsy Status post ablation of incompetent vein using laser (03/06/21) H/O vein stripping (06/12/21) Hx of tonsillectomy History of back surgery Family History Father CVD (cardiovascular disease) Mother No problems noted. 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 Current occupational exposures/hazards: No Cognitive needs: No Hearing needs: No Vision needs: No Review of Systems Const Denies chills, Denies fatigue, Denies fever(s), Denies frequent falls, Denies weakness, Denies weight gain and Denies weight loss ENT Denies dizziness Card Denies chest pain, Denies leg edema, Denies lightheadedness, Denies palpitations, Denies dyspnea, Denies dyspnea on exertion, Denies orthopnea and Denies other (loss of consciousness) Resp Denies cough, Denies dyspnea and Denies dyspnea on exertion GI Denies hematochezia and Denies change in stool character Musc Denies abnormal gait, Denies muscle weakness, Denies numbness, Denies radiating pain into limb and Denies tingling Neuro Denies Abnormal speech present, Denies abnormal gait, Denies dizziness, Denies frequent falls, Denies numbness, Denies tingling and Denies weakness Endo Denies fatigue and Denies palpitations Physical Exam Vital Signs: Last Vital Signs Pulse 56 12/17/24 15:21 BP 140/82 H 12/17/24 15:21 BMI result Body Mass Index 35.9 Const General: cooperative, comfortable, no acute distress, alert, awake and well groomed Nutritional Appearance: obese Orientation/consciousness: patient oriented x3 Limitations: no limitations Neck Neck: Yes trachea midline, Yes supple and Yes no JVD Resp Effort & Inspection: normal respiratory effort Auscultation: clear to auscultation bilaterally Cardio Jugular venous distension: no JVD Palpation: normal PMI Rate: regular rate Rhythm: regular rhythm Heart sounds: S1 normal heart sound present, S2 normal heart sound present, no click, no gallops, no murmurs and no rubs GI Inspection: Yes obesity Auscultation: normal bowel sounds Skin General skin exam: no rashes or lesions noted Neuro General: patient oriented x3 and no focal motor deficits Speech: No Abnormal speech present Extrem General: Yes no clubbing, cyanosis or edema and Yes other (Significant varicosities behind the knee on the right) Psych Appearance: grossly normal Affect: Anxious affect present Office Procedures EKG Details: EKG shows sinus bradycardia otherwise normal EKGs 54859-[id number], Complete Assessment & Plan Assessment & Plan (1) Supraventricular tachycardia: Comment: follows w/HCS yearly Code(s): I47.1 - Supraventricular tachycardia Category: Medical Plan: Supraventricular tachycardia which has remained oral as suppressed. He has done well with the atenolol therapy. No recurrent long episodes. He has symptoms of palpitation either suggest significant sinus bradycardia and/or PACs or PVCs. Advise smart phone based EKG device. He will invest in his. Avoidance of stimulants was discussed. Stress mitigation strategies was discussed. Continue atenolol therapy. (2) HTN (hypertension): Code(s): I10 - Essential (primary) hypertension Category: Medical Qualifiers: Hypertension type: primary hypertension Qualified Code(s): I10 - Essential (primary) hypertension Plan: Hypertension which is currently well controlled. Advised to monitor blood pressure and maintain a log. Goal blood pressure less than 130/84. Low-salt diet was discussed. Continue participate in regular physical activity and weight loss program. Advised to monitor blood pressure at home maintain a log. Follow up in the clinic in 1 year's time, sooner PRN. Thank you for allowing me to partake in his care Coding Level of Care Code Est Pt Level 4 (41652) Complex EM visit Add On G2211 Diagnoses Supraventricular tachycardia I47.1 Primary hypertension I10 Hypertension type: primary hypertension CPT Codes EKG - CPT: 50834-Vhzazahlvepkazkmu, Complete ([id number])
[2024-12-17 15:21] VITALS: BP 140/82; PULSE 56; BMI 35.9
[2024-12-17 15:48] VITALS: BP 122/78
--- OUTSIDE RECORDS SUMMARY | 2024-12-17 16:36 | XMS_ITS | Continuity of Care Document ---
Author Organization [facility] [address] [place] [address] Phone [phone] Care Team Providers Care Rn Renal Name Role Phone Erwin Acevedo M.D. Care Team Information Recei eda [phone] Problems Active Problems Provider Date Hypercholesterolemia Wyatt [...] Medications SIG Qnty Indications Ordering Provider Date Ifyeweeumfx6po Tablets take 1 tablets by mouth every day as directed 90tabs Flor Golden M.D. 05/03/2023 Qaerzneh24pi Tablets Take 1 tablet by mouth daily Erwin Acevedo M.D. Tamsulosin HCL0.4mg Capsules Take 1 capsule daily Joby Biggs Oxybutynin Chloride ER10mg Tablets ER 24HR Take 1 tablet daily Joby Biggs Aaacabhosl78jy Capsules DR 1 by mouth every day [...] Referral Status Appt Wyatt Abebe M.D. Closed [address] [place] [address] [address] [place] [address] [phone]
--- OUTSIDE RECORDS SUMMARY | 2024-12-17 16:36 | XMS_ITS | Clinical Summary ---
Author Organization [facility] Address [address] [place] [address] [place] [phone] Phone Care Team Providers Care Sports Information Director Name Role Phone Erwin Acevedo DO Primary Care Provider Allergies No known active allergies Medications atenolol (TENORMIN) 50 mg tablet Take 25 mg by mouth daily. Active naproxen sodium (ALEVE ORAL) Active omeprazole (PRILOSEC) 20 MG capsule 1 capsule Orally Once a day Active methIMAzole (TAPAZOLE) 5 MG tablet Take 5 mg by mouth daily. 09/26/2023 Active oxyBUTYnin (DITROPAN-XL) 10 MG 24 hr tablet Active tamsulosin (FLOMAX) 0.4 mg Cap Active pyridoxine, vitamin B6, (B-6) 50 MG tablet Take 50 mg by mouth daily. Active cyanocobalamin, vitamin B-12, 100 MCG tablet Take 100 mcg by mouth daily. Active ascorbic acid, vitamin C, (VITAMIN C) 250 mg Chew Take by mouth daily. Active atenolol (TENORMIN) 25 MG tablet 1 tablet Orally Once a day Active Active Problems Problem Noted Date Diagnosed Date Essential hypertension 11/23/2023 SSS (sick sinus syndrome) 11/23/2023 Obesity 05/03/2023 Hyperthyroidism 05/03/2023 Hypercholesterolemia 05/03/2023 Gastroesophageal reflux disease 05/03/2023 PSVT (paroxysmal supraventricular tachycardia) 0 05/03/2023 Non-toxic multinodular goiter 05/03/2023 Encounters Date Type Department Care Team Description 09/28/2024 10:30 AM EDT Office Visit [facility] [address] [address] [place], OFFICE SWEEPER Chalazion of left lower eyelid (Primary Dx) from Last 3 Months Immunizations Immunization Administration Dates Next Due COVID-19 (Pre-12/06) Pfizer Vaccine, mRNA, PF ,05/17/2020 COVID-19 Pfizer Comirnaty Vaccine 12+ 11/27/2022 INFLUENZA, SPLIT VIRUS, TRIVALENT PF 03/13/2017 Influenza High-Dose Quadrivalent Preservative Fr ee IM 10/27/2021 Influenza Quadrivalent Adjuvanted Preservative F ree IM 11/27/2022,12/27/2020 Influenza Quadrivalent Preservative Free IM 07/2018 Influenza Quadrivalent w/ Preservative IM 2019 Social History Tobacco Use Types Packs/Day Years Used Date Smoking Tobacco: Never Smokeless Tobacco: Never Tobacco Cessation:Counseling Given: Not Answered Education Answer Date Recorded Are you interested [...] on file Sexual Orientation Not on file Last Filed Vital Signs Vital Sign Reading Time Taken Comments Blood Pressure 116/73 09/28/2024 10:46 AM EDT Pulse 51 09/28/2024 10:46 AM EDT Temperature 36.8 C (98.3 F) 09/28/2024 10:46 AM EDT Respiratory Rate 18 09/28/2024 10:46 AM EDT Oxygen Saturation 97% 09/28/2024 10:46 AM EDT Inhaled Oxygen Concentration - - Weight - - Height - - Body Mass Index - - Plan of Treatment Health Maintenance Due Date Last Done Comments Adult Td,Tdap Booster 1955 LIPID PANEL 1955 DEPRESSION SCREENING 1967 HEPATITIS C SCREENING 1973 COLOGUARD 01/19/2000 COLONOSCOPY 01/19/2000 COLORECTAL CANCER SCREENING 01/19/2000 FIT TEST 01/19/2000 FOBT 01/19/2000 SIGMOIDOSCOPY 01/19/2000 VIRTUAL COLONOSCOPY 01/19/2000 PNEUMOCOCCAL VACCINES (50+ years) (1 of 1 - PCV) 2005 ZOSTER VACCINES (1 of 2) 2005 INFLUENZA VACCINE (#1) 2024 , 11/27/2022, 10/27/2021, Additional history exists COVID-19 VACCINE (2024- season) 2024 12/07/2023, 11/27/2022, 12/27/2020, Additional history exists BLOOD PRESSURE 03/31/2025 09/28/2024 RSV VACCINE (1 - 1-dose 75+ series) 2030 SMOKING STATUS SCREENING (Once After 26 Yrs) Completed 09/28/2024 HEPATITIS A VACCINES Aged Out No long er eligible based on patient's age to complete this topic HIB VACCINES Aged Out No longer eligi ble based on patient's age to complete this topic MENINGOCOCCAL VACCINES (ACWY) Aged Out No longer eligible based on patient's age to complete this topic MENINGOCOCCAL VACCINES (B) Aged Out N o longer eligible based on patient's age to complete this topic Medical Devices Not on file Insurance [facility] UNITED POS [employer] POS UNITED POS [employer] POS Care Teams Sports Information Director Relationship Specialty Start Date End Date Erwin Acevedo DO [address] [place] [id number] PCP - General 11/29/16 Additional Source Comments The information contained in this document represents components of the legal health record. It is not the complete legal health record.[facility]
== END 2024-12-17 15:46 | disposition home or self-care (01) ==
LOC: HO.HCS 15:19
PROVIDERS: PCP Nurse Practitioner Family; Visit Provider Internal Medicine Cardiovascular Disease
DX: I47.10 Supraventricular tachycardia, unspecified (principal); I10 Essential (primary) hypertension
CPT/HCPCS: 93010; 99214

== ENCOUNTER → 2024-12-17 15:18 | Outpatient (BNVA) | payer OTHER, SELFPAY | PROVIDERS: PCP Nurse Practitioner Family; Visit Provider Internal Medicine Cardiovascular Disease | DX: I47.10 Supraventricular tachycardia, unspecified (principal); I10 Essential (primary) hypertension | CPT/HCPCS: 93005 ==